=== PATIENT | female | born 1965 | race Caucasian/White ===

== ENCOUNTER → 2016-08-23 | Outpatient (CLI) | payer BC ==
--- NOTE | 2016-08-23 11:43 | Diagnostic Imaging Report ---
EXAMINATION: Bilateral screening mammogram With a Computer Aided Detection (CAD) system. INDICATION: Screening. PERSONAL HISTORY: No current complaints stated on the questionnaire. COMPARISON: 08/24/2015. FINDINGS: The breasts are composed of scattered fibroglandular densities. Punctate calcifications are seen. Allowing for technique and positional differences, no suspicious change is seen. IMPRESSION: No significant change. ACR BI-RADS Category 2: Benign findings. Result letter will be mailed to the patient. Note: At least 10% of breast cancer is not imaged by mammography. Dictated by: Dictated on workstation # [id number]
== END ==
LOC: RAD 07:26
PROVIDERS: ATTEND Obstetrics & Gynecology
DX: Z12.31 Encounter for screening mammogram for malignant neoplasm of breast (principal)
CPT/HCPCS: 77067

== ENCOUNTER 2016-12-05 06:55 | Day surgery (SDC) | payer BC, OTHER ==
[2016-12-05] VITALS (14 sets, daily range): BP systolic 98–145; BP diastolic 76–99
[~2016-12-05] VITALS: Ht 167.6 cm; Wt 140.6 kg
[2016-12-05] MEDS ORDERED: NS IV 1000 ML 1,000 ML ONE (06:57)
[2016-12-05] MEDS ORDERED: HEParin (CATH LAB) 2,000 ML IV ONE (06:57)
[2016-12-05 07:27] LABS: MEAN PLATELET VOLUME 10.2 FL (7.4-10.4); RED BLOOD COUNT 4.98 10^6/uL (4.35-5.85); RED CELL DISTRIBUTION WIDTH 16.6 % (10.0-14.5); WHITE BLOOD COUNT 10.4 10^3/uL (4.3-11.0)
[2016-12-05] MEDS ORDERED: NS IV 1000 ML 1,000 ML IV SCH (07:30)
[2016-12-05 07:38] LABS: INR 1.6 (0.8-1.4); PROTHROMBIN TIME PATIENT 19.3 SEC (12.2-14.7)
[2016-12-05 07:49] LABS: ALBUMIN 3.9 GM/DL (3.2-4.5); BILIRUBIN,TOTAL 0.5 MG/DL (0.1-1.0); CREATININE SERUM 1.29 MG/DL (0.60-1.30); POTASSIUM 3.9 MMOL/L (3.6-5.0); TOTAL PROTEIN 7.7 GM/DL (6.4-8.2)
[2016-12-05 08:08] LABS: THYROID STIMULATING HORMONE 4.39 UIU/ML (0.35-4.94)
[2016-12-05] MEDS ORDERED: OLME1TAB24 PO ×2 (08:23)
[2016-12-05] MEDS ORDERED: METO-395 PO ×2 (08:23)
[2016-12-05] MEDS ORDERED: fentaNYL INJECTION 100 MCG/2 ML AMP ONE (08:23)
[2016-12-05] MEDS ORDERED: FISH1CAP15 PO ×2 (08:23)
[2016-12-05] MEDS ORDERED: METF1000 PO ×2 (08:23)
[2016-12-05] MEDS ORDERED: RIVA20TA PO ×2 (08:23)
[2016-12-05] MEDS ORDERED: FLAX100031 PO ×2 (08:23)
[2016-12-05] MEDS ORDERED: NORG1TAB33 PO ×2 (08:23)
[2016-12-05] MEDS ORDERED: SITA100T12 PO ×2 (08:23)
[2016-12-05] MEDS ORDERED: diphenhydrAMINE 50 MG/ML INJ (BENADRYL) ONE (08:23)
[2016-12-05] MEDS ORDERED: MIDAZOLAM 5 MG/5 ML (VERSED) VIAL ONE (08:23)
[2016-12-05] MEDS ORDERED: PRAV40TA2 PO ×2 (08:23)
[2016-12-05] MEDS ORDERED: MULT-35 PO ×2 (08:23)
[2016-12-05] MEDS ORDERED: NITROGLYCERIN DRIP 25 MG/D5W 0 ML IV ONE (08:56)
[2016-12-05] MEDS ORDERED: HEParin 1000 UNIT/ML (10ML VIAL) FOR BOLUS ONE (08:56)
[2016-12-05] MEDS ORDERED: EPTIFIBATIDE BOLUS 20 ML IV ONE (08:56)
[2016-12-05] MEDS ORDERED: EPTIFIBATIDE BOLUS 10 ML IV ONE (09:08)
[2016-12-05] MEDS ORDERED: CLOPIDOGREL 300 MG (PLAVIX) TABLET PO ONE (09:16)
[2016-12-05] MEDS ORDERED: ASPIRIN 81 MG CHEW (CHILDREN'S ASA) ONE (09:24)
--- NOTE | 2016-12-05 09:53 | Cardiac Procedure Note-CS/ASA ---
Pre-Procedure Note Pre-Op Procedure Note H&P Reviewed The H&P was reviewed, patient examined and no changes noted. Date H&P Reviewed: Dec 05, 2016 Time H&P Reviewed: 08:45 Conscious Sedation Pre-Proced Time Reviewed: 08:45 ASA Class: 3 Airway Mallampati Classification: (eklutna appropriate class) I. II. III, IV Lungs Heart ASA score ASA 1: a normal healthy patient ASA 2: a patient with a mild systemic disease (mid diabetes, controlled hypertension, obesity ASA 3: a patient with a severe systemic disease that limits activity (angina , COPD, prior Myocardial infarction) ASA 4: a patient with an incapacitating disease that is a constant threat to life (CHF, renal failure) ASA 5: a moribund patient not expected to survive 24 hrs. (ruptured aneurysm) ASA 6: a declared brain patient whose organs are being harvested. For emergent operations, add the letter E after the classification Grade 3 Sedation Plan: Analgesia, Amnesia, Plan communicated to team members, Discussed options with patient/fam, Discussed risks with patient/fam Note The patient is an appropriate candidate to undergo the planned procedure, sedation, and anesthesia. The patient immediately re-assessed prior to indication. JOSE MEREDITH MD FACP FAC CCDS Dec 05, 2016 09:53
[2016-12-05] MEDS: NS IV 1000 ML 1,000 ML IV SCH ×2 (09:55→13:07)
[2016-12-05] MEDS ORDERED: DIGOXIN 0.25 MG/ML (LANOXIN) 2 ML AMP IV NR (10:00)
[2016-12-05] MEDS ORDERED: FUROSEMIDE 40 MG/4 ML INJ (LASIX) IVP NR (10:00)
[2016-12-05] MEDS ORDERED: PATIENT MAY USE OWN MEDS, ALL PO SCH (10:00)
[2016-12-05] MEDS ORDERED: KCL 20 MEQ TAB (K-DUR) PO NR (10:00)
--- NOTE | 2016-12-05 10:19 | CARDIAC CATHETERIZATION ---
DATE OF SERVICE: 12/05/2016 PRIMARY PHYSICIAN: Dr. Jeffers. The patient is a 51-year-old lady who has recently been diagnosed with atrial fibrillation and dilated cardiomyopathy. Cardiac catheterization was carried out after having obtained an informed consent. PROCEDURE: The patient was brought to the cardiac catheterization laboratory in a fasting state. Right groin was prepared and draped in the usual sterile fashion. Lidocaine 1% local anesthesia. Modified Seldinger technique was to advance a 5-Sudanese sheath into the right femoral artery. A 5-Sudanese JL4 catheter was used for left coronary angiography. A 5-Sudanese JR4 catheter, right coronary angiography. A 5-Sudanese pigtail catheter was used for left heart catheterization and left ventricular angiography. PERCUTANEOUS INTERVENTION TO THE LEFT ANTERIOR DESCENDING ARTERY: Following completion of the diagnostic procedure, we exchanged the sheath over a wire for a 6-Sudanese sheath. We used a 6-Sudanese JL4.5 guide catheter to engage the left coronary system. We advanced a BMW wire across an 80% stenosis of the mid left anterior descending artery and the tip of the wire was placed in the distal vessel. We deployed an Alpine Xience 3.0 mm x 18 mm stent in the mid left anterior descending artery. This was deployed at 22 atmospheres and has reduced the stenosis from 80% to 0% residual. The distal left anterior descending artery is occluded and not intervened on. There is brisk runoff past the standard area into the branch vessels. The patient tolerated the procedure well. At the end of the procedure, angiography of the right femoral artery was carried out through the sheath and a Mynx was used to achieve hemostasis. She tolerated the procedure well. She received 9000 units of intravenous heparin and a double bolus of Integrilin during the interventional procedure. At the end of the procedure, she received 600 mg of oral Plavix and 324 mg of oral aspirin. HEMODYNAMICS: Left ventricular end-diastolic pressure following coronary angiography was 24 mmHg. There was no significant pressure gradient on pullback across the aortic valve. Ascending aortic pressure was 129/90 with a mean of 108 mmHg. CORONARY ANGIOGRAPHY: Diffuse coronary calcification is present. Left main coronary artery does not exhibit significant obstructive disease. Left anterior descending artery had 80% mid vessel stenosis to which successful intervention was carried out, and following deployment of Alpine Xience 3.0 mm x 18 mm stent at 22 atmospheres, there is 0% residual stenosis of the mid left anterior descending artery. The distal left anterior descending artery is occluded. The left circumflex artery has diffuse mild to moderate disease. The right coronary artery is dominant. It has 50% proximal and mid vessel stenoses. The distal right coronary artery has 99-100 percent stenosis at its bifurcation into the posterior descending and posterolateral branches. These branches are of very small caliber and are collateralized from the left coronary system. LEFT VENTRICULAR ANGIOGRAPHY: Left ventricular angiography was carried out in the right anterior oblique projection. Global left ventricular systolic function is impaired. There is anterolateral, apical and diaphragmatic hypokinesis. Left ventricular ejection fraction is 35 to 40%. There does not appear to be significant mitral regurgitation. There is mild mitral regurgitation. CONCLUSIONS: 1. Coronary artery disease as detailed above. There was 80% mid vessel stenosis in the left anterior descending artery which was stented with an MVious Xoticsine Xience 3.0 mm x 18 mm stent deployed at 22 atmospheres. The distal left anterior descending artery is occluded 2. The left circumflex artery has diffuse mild to moderate disease. 3. The right coronary artery has moderate proximal and mid vessel disease and severe distal disease and is collateralized from the left coronary system. 4. Impairment of global left ventricular systolic function with an ejection fraction of 35 to 40%. 5. Anterolateral, apical and diaphragmatic hypokinesis of the left ventricle. 6. Mild mitral regurgitation. 7. Elevated left ventricular end diastolic pressure. DISCUSSION AND RECOMMENDATIONS: 1. We will overlap aspirin and Plavix for 2 to 3 days while continuing therapy with Xarelto. We will discontinue aspirin and continue Plavix for 6 to 12 months. Once Plavix therapy has been completed, we will switch it out to aspirin, while continuing Xarelto therapy indefinitely. 2. For treatment of cardiomyopathy, we are treating with beta blockers and JESUS inhibitors, as tolerated by blood pressure and renal function. Diuretic therapy is also being continued to control symptoms of congestive heart failure. 3. She is being hospitalized after today's procedure and we will continue to titrate her medications appropriately. Job ID: [id number] DocumentID: [id number] Dictated Date: 12/05/2016 09:44:13 Circuit Walker Date: 12/05/2016 10:18:51 Dictated By: JOSE MEREDITH MD, MA, FACP, FACC, MTDD
[2016-12-05] MEDS: sitaGLIPtin 50 MG (NON-FORMULARY) TAB PO SCH (11:46)
[2016-12-05] MEDS: meTOproloL SUCCINATE 50 MG (TOPROL XL) TAB PO SCH ×2 (11:47→21:10)
[2016-12-05] MEDS ORDERED: DIGOXIN 0.25 MG/ML (LANOXIN) 2 ML AMP ONE (15:32)
[2016-12-05] MEDS ORDERED: FUROSEMIDE 40 MG/4 ML INJ (LASIX) ONE (15:32)
[2016-12-05] MEDS ORDERED: OMEGA 3 (FISH OIL) 1000 MG CAP PO SCH (21:00)
[2016-12-05] MEDS ORDERED: RIVAROXABAN 20 MG TABLET (XARELTO) PO SCH (21:00)
[2016-12-05] MEDS ORDERED: SIMvastatin 20 MG (ZOCOR) TAB PO SCH (21:00)
[2016-12-06] VITALS: BP 114/73
[2016-12-06 04:00] VITALS: BP 112/72
[2016-12-06 05:06] LABS: MEAN PLATELET VOLUME 10.9 FL (7.4-10.4); RED BLOOD COUNT 4.44 10^6/uL (4.35-5.85); RED CELL DISTRIBUTION WIDTH 16.6 % (10.0-14.5); WHITE BLOOD COUNT 13.9 10^3/uL (4.3-11.0)
[2016-12-06 05:25] LABS: CREATININE SERUM 1.09 MG/DL (0.60-1.30); POTASSIUM 3.6 MMOL/L (3.6-5.0)
[2016-12-06] MEDS ORDERED: MULTIVIT W/MINERALS TAB (THERAGRAN M) PO SCH (07:00)
[2016-12-06] MEDS ORDERED: KCL 10 MEQ TAB (MICRO K) PO SCH (07:00)
[2016-12-06 08:40] VITALS: BP 133/88
[2016-12-06] MEDS ORDERED: HYDROCHLOROTHIAZIDE 25 MG (HCTZ) TAB PO SCH (09:00)
[2016-12-06] MEDS ORDERED: NON-FORMULARY MEDICATION 1 EA EA (Flaxseed Oil (Flax Seed Oil) 1,000 MG) PO SCH (09:00)
[2016-12-06] MEDS ORDERED: ASPIRIN E.C. 81 MG (ECOTRIN) TAB PO SCH (09:00)
[2016-12-06] MEDS ORDERED: DIGOXIN 0.25 MG (LANOXIN) TAB PO SCH (09:00)
[2016-12-06] MEDS ORDERED: FUROSEMIDE 40 MG (LASIX) TAB PO SCH (09:00)
[2016-12-06] MEDS ORDERED: OLMESARTAN 20 MG (BENICAR) TABLET PO SCH (09:00)
[2016-12-06] MEDS ORDERED: CLOPIDOGREL 75 MG (PLAVIX) TABLET PO SCH (09:00)
--- NOTE | 2016-12-06 09:05 | Progress Note-Cardiology ---
Cardiology SOAP Progress Note Subjective: Sitting up in bed. C/O some groin discomfort. No c/o CP, palpitations, syncope or near syncope. No c/o dyspnea. Objective: I&O/Vital Signs Vital Sign - Last 12Hours 12/06/16 12/06/16 12/06/16 12/06/16 04:00 07:00 07:55 08:40 Temp 97.6 98.0 Pulse 100 99 Resp 18 B/P (MAP) 112/72 Pulse Ox 97 97 O2 Delivery Room Air Room Air 12/06/16 12/06/16 12/06/16 08:40 11:15 12:00 Temp 97.7 Pulse 85 91 91 Resp 20 20 20 B/P (MAP) 133/88 107/75 107/75 Pulse Ox 97 97 97 O2 Delivery Room Air Room Air Room Air Weight (Pounds): 310 Weight (Ounces): 0.0 Weight (Calculated Kilograms): 140.661861 Side: right Groin site without hematoma: Yes Condition: DP/PT pulses palpable, extremity w/d/p Bruising: mild bruising Constitutional: AAO x 3 Respiratory: lungs clear to auscultation Cardiovascular: irregularly irregular, No JVD Gastrointestional: No tender, soft, round Extremities: no lower extremity edema bilateral Neurologic/Psychiatric: grossly intact Skin: No rash, No ulcerations Results/Procedures: Labs Laboratory Tests 12/06/16 04:12: White Blood Count 13.9H, Red Blood Count 4.44, Hemoglobin 12.1, Hematocrit 38, Mean Corpuscular Volume 85, Mean Corpuscular Hemoglobin 27, Mean Corpuscular Hemoglobin Concent 32, Red Cell Distribution Width 16.6H, Platelet Count 161, Mean Platelet Volume 10.9H, Sodium Level 138, Potassium Level 3.6, Chloride Level 107, Carbon Dioxide Level 18L, Anion Gap 13, Blood Urea Nitrogen 16, Creatinine 1.09, Estimat Glomerular Filtration Rate 53, BUN/Creatinine Ratio 15 , Glucose Level 123H, Calcium Level 9.0 Procedures S/P cardiac cath with successful intervention on 12-05-16. Please refer to Dr. Gaitan's procedure note from 12-05-16. A/P: Assessment: Cardiac cath of 12-05-16: Coronary artery disease. There was 80% mid vessel stenosis in the left anterior descending artery which was stented with an Alpine Xience 3.0 mm x 18 mm stent deployed at 22 atmospheres. The distal left anterior descending artery is occluded. The left circumflex artery has diffuse mild to moderate disease. The right coronary artery has moderate proximal and mid vessel disease and severe distal disease and is collateralized from the left coronary system. Impairment of global left ventricular systolic function with an ejection fraction of 35 to 40%. Anterolateral, apical and diaphragmatic hypokinesis of the left ventricle. Mild mitral regurgitation. Elevated left ventricular end diastolic pressure. ICM A Fib of undetermined age, first diagnosed on an ECG of 11/13/16 OAC with Xarelto Suspected sleep apnea syndrome - sleep studies advised Hypertension Fam h/o early CAD (mother in her early 60s) DM II Boredrline hyperlipidemia Echo at the [facility] on 11/28/18: LVEF 35%, cardiomegaly, mod-sev MR, midl AI , difficult study Plan: We will overlap aspirin, Xarelto and Plavix today. We will discontinue aspirin and continue Plavix for 6 to 12 months. Once Plavix therapy has been completed , we will switch it out to aspirin, while continuing Xarelto therapy indefinitely. For treatment of cardiomyopathy, we are treating with beta blockers and JESUS inhibitors, as tolerated by blood pressure and renal function. Diuretic therapy is also being continued to control symptoms of congestive heart failure. We advise out pt sleep studies, we have spoke with Dr. Mcintosh and he is agreeable to seeing her tomorrow. OK to discharge home today We will see her as an out pt next week We advise compliance with medications Physician Assessment Physician Assessment Lungs: good air entry, diminished at the bases Cor: ifreg Ext: no c/c/e A&R * As documented in our note above that I updated (italics) and as noted below * I spoke with her and explained cath findings, interventions undertaken, treatment plan and treatment rationale * We discussed potential side effects of med and importance of med compliance * I spoke with her and answered questions ESTEFANIA WATTS Dec 06, 2016 09:05 JOSE GAITAN MD [facility] CCDS Dec 06, 2016 13:45
[2016-12-06] MEDS ORDERED: DIGO250T15 PO ×2 (09:31)
[2016-12-06] MEDS ORDERED: POTA10TA6 PO ×2 (09:31)
[2016-12-06] MEDS ORDERED: FURO40TA4 PO ×2 (09:31)
[2016-12-06] MEDS ORDERED: CLOP75TA28 PO ×2 (09:31)
--- NOTE | 2016-12-06 09:33 | Discharge Inst-Cardiology ---
Discharge Inst-Cardiac Discharge Medications New Medications: Clopidogrel Bisulfate (Clopidogrel) 75 Mg Tablet 75 MG PO DAILY, #30 TAB 5 Refills Digoxin (Digox) 250 Mcg Tablet 0.25 MG PO DAILY, #30 TAB 5 Refills Furosemide (Furosemide) 40 Mg Tablet 40 MG PO DAILY, #30 TAB 5 Refills Potassium Chloride (Klor-Con 10) 10 Meq Tablet.er 10 MEQ PO DAILY@0700, #30 TAB 5 Refills Continued Medications: Fish Oil/Dha/Epa (Fish Oil 1,200 mg Fish Oil) 1 Each Capsule 1200 MG PO HS, CAP Flaxseed Oil (Flax Seed Oil) 1,000 Mg Capsule 1000 MG PO DAILY, CAP Metformin HCl (Metformin HCl) 1,000 Mg Tablet 500 MG PO TIDWM, TAB TAKES 1/2 (1000MG) TABLET Metoprolol Succinate (Metoprolol Succinate) 100 Mg Tab.er.24h 50 MG PO BID, TAB TAKES 1/2 (100MG) TABLET Multivitamin (Daily Multiple Vitamin) 1 Each Tablet 1 TAB PO DAILY, TAB Norgestrel-Ethinyl Estradiol (Uyc-Hgtyvqpj-47 Tablet) 1 Each Tablet 1 TAB PO DAILY, TAB Olmesartan/Hydrochlorothiazide (Benicar Hct 40-25 mg Tablet) 1 Each Tablet 1 TAB PO DAILY, TAB Pravastatin Sodium (Pravastatin Sodium) 40 Mg Tablet 40 MG PO HS, TAB Rivaroxaban (Xarelto) 20 Mg Tablet 20 MG PO HS, TAB Sitagliptin Phosphate (Januvia) 100 Mg Tablet 100 MG PO DAILY, TAB New, Converted or Re-Newed RX: Transmitted to Pharmacy Patient Instructions Patient Instructions: HOLD METFORMIN TODAY AND TOMORROW. RESTART ON SUNDAY MORNING. FOLLOW UP APPT IN 1 WEEK LAB: BMP AND DIGOXIN LEVEL IN A WEEK. HAVE DONE BEFORE FOLLOW UP APPT WITH DR. MEREDITH Orders-Post D/C & Referrals Pneu Vac Indicated: Yes ESTEFANIA WATTS Dec 06, 2016 09:33
[2016-12-06] MEDS: meTOproloL SUCCINATE 50 MG (TOPROL XL) TAB PO SCH (10:05)
[2016-12-06] MEDS: sitaGLIPtin 50 MG (NON-FORMULARY) TAB PO SCH (10:05)
[2016-12-06 11:15] VITALS: BP 107/75
[2016-12-06 12:00] VITALS: BP 107/75
[2017-02-14] MEDS ORDERED: OXYC-202 PO (12:47)
== END 2016-12-06 12:00 | disposition home or self-care (01) ==
LOC: CATH 06:55 → ICU 09:55 → CATH 12-06 12:00
PROVIDERS: ATTEND Internal Medicine Cardiovascular Disease
DX: I42.0 Dilated cardiomyopathy (principal); I25.10 Atherosclerotic heart disease of native coronary artery without angina pectoris; I25.84 Coronary atherosclerosis due to calcified coronary lesion; I48.91 Unspecified atrial fibrillation; E11.9 Type 2 diabetes mellitus without complications; Z79.01 Long term (current) use of anticoagulants; Z79.899 Other long term (current) drug therapy; Z79.84 Long term (current) use of oral hypoglycemic drugs; Z82.49 Family history of ischemic heart disease and other diseases of the circulatory system
CPT/HCPCS: 36415; 80048; 80053; 80061; 82962; 84443; 85027; 85610; 85730; 87081; 93005; 93458

== ENCOUNTER 2016-12-08 11:45 | Outpatient (CLI) | payer BC, OTHER ==
[~2016-12-08 11:45] MED LIST: CLOP75TA28 PO; DIGO250T15 PO; FISH1CAP15 PO; FLAX100031 PO; FURO40TA4 PO; METF1000 PO; METO-395 PO; MULT-35 PO; NORG1TAB33 PO; OLME1TAB24 PO; POTA10TA6 PO; PRAV40TA2 PO; RIVA20TA PO; SITA100T12 PO
[2017-02-14] MEDS ORDERED: OXYC-202 PO (12:47)
== END 2016-12-08 11:55 | disposition home or self-care (01) ==
LOC: SLEEP 11:45
PROVIDERS: ATTEND Nurse Practitioner Family
DX: G47.10 Hypersomnia, unspecified (principal); I48.0 Paroxysmal atrial fibrillation; G25.81 Restless legs syndrome

== ENCOUNTER → 2016-12-11 | Outpatient (CLI) | payer BC ==
[~2016-12-11] MED LIST changes: +METO-274 PO; -METO-395 PO
[2016-12-11 09:37] LABS: CREATININE SERUM 1.33 MG/DL (0.60-1.30); POTASSIUM 4.1 MMOL/L (3.6-5.0)
[2016-12-11 09:44] LABS: DIGOXIN 1.51 NG/ML (0.80-2.00)
== END ==
LOC: LAB 08:54
PROVIDERS: ATTEND Nurse Practitioner Family
DX: I48.91 Unspecified atrial fibrillation (principal); I50.9 Heart failure, unspecified
CPT/HCPCS: 36415; 80048; 80162

== ENCOUNTER → 2016-12-18 | Outpatient (CLI) | payer BC ==
[2016-12-18 10:24] LABS: CREATININE SERUM 1.11 MG/DL (0.60-1.30); MAGNESIUM 1.4 MG/DL (1.8-2.4); POTASSIUM 3.8 MMOL/L (3.6-5.0)
== END ==
LOC: LAB 09:45
PROVIDERS: ATTEND Nurse Practitioner Family
DX: I10 Essential (primary) hypertension (principal); I42.0 Dilated cardiomyopathy; I48.0 Paroxysmal atrial fibrillation; I25.10 Atherosclerotic heart disease of native coronary artery without angina pectoris; E83.52 Hypercalcemia
CPT/HCPCS: 36415; 80048; 83735

== ENCOUNTER → 2017-01-03 | Outpatient (CLI) | payer BC ==
[2017-01-03 10:16] LABS: BASOPHILS # (AUTO) 0.1 10^3/uL (0.0-0.1); BASOPHILS % (AUTO) 1 % (0-10); EOSINOPHILS # (AUTO) 0.2 10^3/uL (0.0-0.3); EOSINOPHILS % (AUTO) 3 % (0-10); LYMPHOCYTES # (AUTO) 1.9 X 10^3 (1.0-4.0); LYMPHOCYTES % (AUTO) 25 % (12-44); MEAN CORPUSCULAR HEMOGLOBIN 29 PG (25-34); MEAN CORPUSCULAR HGB CONC 31 G/DL (32-36); MEAN CORPUSCULAR VOLUME 93 FL (80-99); MEAN PLATELET VOLUME 10.5 FL (7.4-10.4); MONOCYTES % (AUTO) 13 % (0-12); NEUTROPHILS # (AUTO) 4.3 X 10^3 (1.8-7.8); NEUTROPHILS % (AUTO) 58 % (42-75); PLATELET COUNT 289 10^3/uL (130-400); RED BLOOD COUNT 3.89 10^6/uL (4.35-5.85); RED CELL DISTRIBUTION WIDTH 18.7 % (10.0-14.5); WHITE BLOOD COUNT 7.5 10^3/uL (4.3-11.0)
[2017-01-03 10:34] LABS: CALCIUM 9.8 MG/DL (8.5-10.1); CREATININE SERUM 1.06 MG/DL (0.60-1.30); MAGNESIUM 1.9 MG/DL (1.8-2.4)
== END ==
LOC: LAB 09:36
PROVIDERS: ATTEND Nurse Practitioner Family
DX: I10 Essential (primary) hypertension; I25.10 Atherosclerotic heart disease of native coronary artery without angina pectoris; E83.42 Hypomagnesemia; Z79.01 Long term (current) use of anticoagulants; I48.0 Paroxysmal atrial fibrillation; I42.0 Dilated cardiomyopathy
CPT/HCPCS: 36415; 80048; 83735; 85025

== ENCOUNTER 2017-02-12 10:50 | Outpatient (CLI) | payer BC ==
[~2017-02-12] VITALS: Ht 167.6 cm; Wt 139.3 kg
[2017-02-12 11:08] VITALS: BP 148/86
[2017-02-12] MEDS ORDERED: MAGN400T6 PO (11:35)
[2017-02-12] MEDS ORDERED: OLME40TA12 PO (11:35)
[2017-02-12 11:41] LABS: BASOPHILS # (AUTO) 0.1 10^3/uL (0.0-0.1); BASOPHILS % (AUTO) 1 % (0-10); EOSINOPHILS # (AUTO) 0.2 10^3/uL (0.0-0.3); EOSINOPHILS % (AUTO) 2 % (0-10); LYMPHOCYTES % (AUTO) 18 % (12-44); MEAN CORPUSCULAR HEMOGLOBIN 27 PG (25-34); MEAN CORPUSCULAR HGB CONC 31 G/DL (32-36); MEAN CORPUSCULAR VOLUME 87 FL (80-99); MEAN PLATELET VOLUME 10.3 FL (7.4-10.4); MONOCYTES # (AUTO) 1.1 X 10^3 (0.0-1.0); MONOCYTES % (AUTO) 11 % (0-12); NEUTROPHILS # (AUTO) 7.3 X 10^3 (1.8-7.8); NEUTROPHILS % (AUTO) 69 % (42-75); PLATELET COUNT 560 10^3/uL (130-400); RED BLOOD COUNT 3.81 10^6/uL (4.35-5.85); RED CELL DISTRIBUTION WIDTH 15.8 % (10.0-14.5); WHITE BLOOD COUNT 10.7 10^3/uL (4.3-11.0)
[2017-02-12 11:55] LABS: CALCIUM 9.9 MG/DL (8.5-10.1); CREATININE SERUM 1.04 MG/DL (0.60-1.30); POTASSIUM 4.2 MMOL/L (3.6-5.0)
== END 2017-02-12 15:00 ==
LOC: PREOP 10:50
PROVIDERS: ATTEND Obstetrics & Gynecology
DX: Z01.818 Encounter for other preprocedural examination (principal); N93.8 Other specified abnormal uterine and vaginal bleeding
CPT/HCPCS: 36415; 80048; 85025; 87081

== ENCOUNTER 2017-02-14 10:50 | Day surgery (SDC) | payer BC ==
[~2017-02-14] VITALS: Ht 167.6 cm; Wt 139.3 kg
[~2017-02-14 10:50] MED LIST changes: +MAGN400T6 PO; -METO-274 PO; +METO-395 PO; +OLME40TA12 PO
[2017-02-14 11:00] VITALS: BP 168/92
[2017-02-14] MEDS ORDERED: ceFAZolin 1 GM/NS 50 ML IVPB IV ONE ×2 (11:30)
[2017-02-14] MEDS ORDERED: LIDOCAINE PF 2% 5 ML (XYLOCAINE) VIAL ONE (12:29)
[2017-02-14] MEDS ORDERED: MIDAZOLAM 2 MG/2 ML (VERSED) VIAL ONE (12:29)
[2017-02-14] MEDS ORDERED: proPOfol 200 MG/20 ML (DIPRIVAN) VIAL IV ONE (12:29)
[2017-02-14] MEDS ORDERED: SEVOFLURANE (ULTANE) 15 ML INHAL SOLN ONE ×2 (12:29→13:17)
[2017-02-14] MEDS ORDERED: fentaNYL INJECTION 100 MCG/2 ML AMP ONE ×2 (12:29→13:07)
[2017-02-14] MEDS ORDERED: ONDANSETRON 4 MG/2 ML (SDV) Z0FRAN ONE (12:29)
[2017-02-14] MEDS ORDERED: LACTATED RINGERS 1,000 ML IV PRN (12:37)
--- NOTE | 2017-02-14 12:43 | Progress Note-Pre Operative ---
Pre-Operative Progress Note H&P Reviewed The H&P was reviewed, patient examined and no changes noted. Date Seen by Provider: Feb 14, 2017 Time Seen by Provider: 12:43 Date H&P Reviewed: Feb 14, 2017 Time H&P Reviewed: 12:43 Pre-Operative Diagnosis: dysfunctional uterine bleeding/menorrhagia ORACIO BLAIR MD Feb 14, 2017 12:43 pm
--- NOTE | 2017-02-14 12:44 | Progress Note-Post Operative ---
Post-Operative Progess Note Surgeon (s)/Data Manager (s) Surgeon ORACIO BLAIR MD Data Manager: none Pre-Operative Diagnosis dysfunctional uterine bleeding/menorrhagia Post-Operative Diagnosis same with pathology pending Procedure & Operative Findings Date of Procedure 02/14/17 Procedure Performed/Findings hysteroscopy with directed biopsy and D&C Anesthesia Type GETA Estimated Blood Loss Estimated blood loss (mL): min Specimens/Packing Specimens Removed directed the endometrial biopsy and endometrial curettings Packing: none ORACIO BLAIR MD Feb 14, 2017 12:44
[2017-02-14] MEDS ORDERED: MEPERIDINE (DEMEROL) INJ 100 MG/ML IM ONE (12:45)
[2017-02-14] MEDS ORDERED: ONDANSETRON 4 MG/2 ML (SDV) Z0FRAN IVP PRN ×2 (12:45→14:00)
[2017-02-14] MEDS ORDERED: oxyCODONE/APAP 10/325MG (PERCOCET 10) TABLET PO PRN (12:45)
[2017-02-14] MEDS ORDERED: PROMETHAZINE INJ 25 MG/ML (PHENERGAN) AMP IM ONE (12:45)
[2017-02-14] MEDS ORDERED: D5 LR IV SOLUTION 1,000 ML IV SCH (12:45)
[2017-02-14] MEDS ORDERED: ESTROGENS CONJ IV 25 MG/5 ML (PREMARIN) VIAL IVP ONE (12:45)
[2017-02-14] MEDS ORDERED: OXYC-202 PO (12:47)
--- NOTE | 2017-02-14 12:48 | Discharge Instructions ---
Discharge Instructions Discharge Medications New, Converted or Re-Newed RX: RX on Chart Patient Instructions Patient Instructions: aas directed Return to The Hospital For: as directed Activity & Diet Discharge Diet: No Restrictions Activity as Tolerated: No Orders-Post D/C & Referrals Follow Up Appt: Call to make follow up appt. for patient in 2 weeks. Activity: Rest for 24 hours, than as tolerated. Diet: As tolerated-Clear Liquids only if nauseated. May shower or tub bathe as desired. No driving for 24 hours, no alcoholic beverages for 24 hours, and nothing per vagina (no tampons, douching, or intercourse) for 2 weeks. Patient to return to the clinic as soon as possible for: Temperature greater than 101F, Severe Pain, Foul discharge from incision or vagina, Excessive Bleeding (more than a period). ORACIO BLAIR MD Feb 14, 2017 12:48 pm
[2017-02-14] MEDS ORDERED: ESMOLOL 100 MG/10 ML (BREVIBLOC) VIAL ONE (13:19)
[2017-02-14] MEDS ORDERED: WATER (STERILE) FOR INJECTION 10 ML ONE (13:42)
[2017-02-14] MEDS ORDERED: morphine INJ 10 MG/ML 1ML (SYR OR VIAL) IVP PRN (14:00)
[2017-02-14 14:30] VITALS: BP 143/75
[2017-02-14 15:00] VITALS: BP 133/80
[2017-02-14 15:01] VITALS: BP 133/80
[2017-02-14 15:20] VITALS: BP 133/80
--- NOTE | 2017-02-14 16:01 | OPERATIVE REPORT ---
DATE OF SERVICE: 02/14/2017 PREOPERATIVE DIAGNOSES: Dysfunctional uterine bleeding, menorrhagia and ultrasound findings of intrauterine mass. POSTOPERATIVE DIAGNOSES: Dysfunctional uterine bleeding, menorrhagia and ultrasound findings of intrauterine mass with appearance of multiple endometrial polyps and pathology pending. OPERATIVE PROCEDURE: Hysteroscopy with directed biopsy and D and C. OPERATIVE DESCRIPTION: With the patient in the supine position under satisfactory general anesthesia, she was repositioned in dorsal lithotomy position in the Dontae stirrups and prepped and draped in the usual fashion for vaginal surgery. Weighted speculum was placed in the posterior fornix of vagina, cervix exposed and grasped anteriorly with single-tooth tenaculum. The uterus was sounded to 9.5 cm with uterine sound. The cervix was then serially dilated with Shukri dilators to a #20 Shukri. The hysteroscope was introduced and using LR as a distending medium, the endometrial cavity was examined. There were multiple polypoid appearing eminences from the lower uterine segment on both sides. Fundraising Specialist biopsies were taken. Both tubal ostia were seen. The balance of the endometrium was sort of bland in appearance. The endometrial cavity was now sharply curettaged in all 4 quadrants with removal of a fairly notable amount of granular polypoid-appearing tissue. That tissue was sent as endometrial curettings. The other two biopsy specimens were sent as directed biopsies appropriately labeled. The hysteroscope was reintroduced and the endometrial cavity was examined. There was no significant bleeding. The procedure was terminated at this point. The tenaculum was removed from the cervix. There was some bleeding from the puncture sites that was controlled easily with an application of silver nitrate. Sponge and needle counts were correct at the end of procedure. Estimated blood loss for the procedure was minimal. The patient tolerated the procedure well and was uneventfully awakened from general anesthesia and transferred to the recovery room in stable condition with plans for discharge home PAR. Job ID: [id number] DocumentID: [id number] Dictated Date: 02/14/2017 13:32:10 Head Of Insight Date: 02/14/2017 16:00:38 Dictated By: ORACIO BLAIR MD
== END 2017-02-14 15:25 | disposition home or self-care (01) ==
LOC: SDC 10:50
PROVIDERS: ATTEND Obstetrics & Gynecology
DX: N84.0 Polyp of corpus uteri (principal); I10 Essential (primary) hypertension; I25.10 Atherosclerotic heart disease of native coronary artery without angina pectoris; E78.5 Hyperlipidemia, unspecified; I48.91 Unspecified atrial fibrillation; G47.33 Obstructive sleep apnea (adult) (pediatric); E11.9 Type 2 diabetes mellitus without complications; E66.01 Morbid (severe) obesity due to excess calories; Z95.5 Presence of coronary angioplasty implant and graft; Z68.42 Body mass index [BMI] 45.0-49.9, adult; Z79.899 Other long term (current) drug therapy; Z79.84 Long term (current) use of oral hypoglycemic drugs
CPT/HCPCS: 82962; 84703

== ENCOUNTER → 2017-03-07 | Outpatient (CLI) | payer BC ==
[~2017-03-07] MED LIST changes: +OXYC-202 PO
== END ==
LOC: CARD 09:31
PROVIDERS: ATTEND Nurse Practitioner Family
DX: I42.0 Dilated cardiomyopathy (principal); I10 Essential (primary) hypertension; I48.0 Paroxysmal atrial fibrillation; G47.33 Obstructive sleep apnea (adult) (pediatric)
CPT/HCPCS: 93306

== ENCOUNTER → 2017-04-05 | Outpatient (CLI) | payer BC ==
[2017-04-05 09:13] LABS: ALBUMIN 3.7 GM/DL (3.2-4.5); BILIRUBIN,TOTAL 0.4 MG/DL (0.1-1.0); CALCIUM 9.9 MG/DL (8.5-10.1); CREATININE SERUM 1.06 MG/DL (0.60-1.30); MAGNESIUM 1.5 MG/DL (1.8-2.4); POTASSIUM 4.1 MMOL/L (3.6-5.0); TOTAL PROTEIN 7.6 GM/DL (6.4-8.2)
== END ==
LOC: LAB 08:28
PROVIDERS: ATTEND Nurse Practitioner Family
DX: I25.10 Atherosclerotic heart disease of native coronary artery without angina pectoris (principal); I10 Essential (primary) hypertension; I42.0 Dilated cardiomyopathy; I48.1 Persistent atrial fibrillation; G47.33 Obstructive sleep apnea (adult) (pediatric)
CPT/HCPCS: 36415; 80053; 80061; 83735

== ENCOUNTER → 2017-04-25 | Outpatient (CLI) | payer BC | LOC: LAB 09:57 | PROVIDERS: ATTEND Internal Medicine Cardiovascular Disease | DX: E83.42 Hypomagnesemia (principal) | CPT/HCPCS: 36415; 83735 ==

== ENCOUNTER → 2017-07-04 | Outpatient (CLI) | payer BC ==
[2017-07-04 11:14] LABS: BASOPHILS % (AUTO) 0 % (0-10); EOSINOPHILS # (AUTO) 0.3 10^3/uL (0.0-0.3); EOSINOPHILS % (AUTO) 3 % (0-10); HEMATOCRIT 37 % (35-52); LYMPHOCYTES # (AUTO) 1.8 X 10^3 (1.0-4.0); LYMPHOCYTES % (AUTO) 17 % (12-44); MEAN CORPUSCULAR HEMOGLOBIN 24 PG (25-34); MEAN CORPUSCULAR HGB CONC 30 G/DL (32-36); MEAN CORPUSCULAR VOLUME 79 FL (80-99); MEAN PLATELET VOLUME 9.5 FL (7.4-10.4); MONOCYTES # (AUTO) 0.9 X 10^3 (0.0-1.0); MONOCYTES % (AUTO) 9 % (0-12); NEUTROPHILS # (AUTO) 7.7 X 10^3 (1.8-7.8); NEUTROPHILS % (AUTO) 71 % (42-75); PLATELET COUNT 457 10^3/uL (130-400); RED BLOOD COUNT 4.65 10^6/uL (4.35-5.85); RED CELL DISTRIBUTION WIDTH 18.7 % (10.0-14.5); WHITE BLOOD COUNT 10.8 10^3/uL (4.3-11.0)
[2017-07-04 11:40] LABS: CREATININE SERUM 1.07 MG/DL (0.60-1.30); MAGNESIUM 1.8 MG/DL (1.8-2.4); POTASSIUM 4.4 MMOL/L (3.6-5.0)
[2017-07-04 12:03] LABS: DIGOXIN 1.04 NG/ML (0.80-2.00)
== END ==
LOC: LAB 10:47
PROVIDERS: ATTEND Nurse Practitioner Family
DX: R00.2 Palpitations (principal); I48.0 Paroxysmal atrial fibrillation; I10 Essential (primary) hypertension; G47.33 Obstructive sleep apnea (adult) (pediatric); I25.10 Atherosclerotic heart disease of native coronary artery without angina pectoris
CPT/HCPCS: 36415; 80048; 80162; 83735; 84443; 85025

== ENCOUNTER → 2017-07-09 | Outpatient (CLI) | payer BC | LOC: CARD 10:07 | PROVIDERS: ATTEND Nurse Practitioner Family | DX: R00.2 Palpitations (principal); I48.0 Paroxysmal atrial fibrillation; I10 Essential (primary) hypertension; I25.10 Atherosclerotic heart disease of native coronary artery without angina pectoris; G47.33 Obstructive sleep apnea (adult) (pediatric) | CPT/HCPCS: 93225; 93226 ==

== ENCOUNTER → 2017-12-12 | Outpatient (CLI) | payer BC ==
[~2017-12-12] MED LIST changes: +METF-399 PO; -METF1000 PO; -OXYC-202 PO; +OXYC1TAB12 PO
[2017-12-12 11:17] LABS: ABG BASE EXCESS -0.1 MMOL/L (-2.5-2.5); ABG OXYGEN SATURATION 99 % (94-100); ABG PCO2 33 MMHG (35-45); ABG PH 7.46 (7.37-7.43); ABG PO2 100 MMHG (79-93); ABG TCO2 24.4 MMOL/L (21.0-31.0); ALLENS TEST YES-POS; INSPIRED O2 RA
[2017-12-12 11:18] LABS: PATIENT TEMP 97.7; VENTILATOR NO
== END ==
LOC: RT 10:36
PROVIDERS: ATTEND Nurse Practitioner Family
DX: E66.2 Morbid (severe) obesity with alveolar hypoventilation (principal); Z68.42 Body mass index [BMI] 45.0-49.9, adult
CPT/HCPCS: 36600; 82805

== ENCOUNTER 2017-12-25 20:40 | Outpatient (CLI) | payer BC | END 2017-12-26 04:55 | disposition home or self-care (01) | LOC: SLEEP 20:40 | PROVIDERS: ATTEND Nurse Practitioner Family | DX: G47.33 Obstructive sleep apnea (adult) (pediatric) (principal); I42.0 Dilated cardiomyopathy; Z78.9 Other specified health status | CPT/HCPCS: 95811 ==

== ENCOUNTER → 2018-03-13 | Outpatient (CLI) | payer BC ==
--- NOTE | 2018-03-13 13:07 | Diagnostic Imaging Report ---
EXAMINATION: Digital Mammogram bilateral screening with 3D tomosynthesis and computer-aided detection (CAD) system. INDICATION: Screening. COMPARISON: This study was compared to the prior exams of 08/23/2016, 08/25/2015, and 08/10/2014. At this time, there are no current complaints. FINDINGS: There are scattered fibroglandular densities in both breasts, which could obscure a lesion. When compared to the prior study, there has been no significant change. There is no primary or secondary sign of malignancy noted. The 3D tomographic views also fail to show any sign of malignancy. IMPRESSION: There is no evidence of malignancy. ACR BI-RADS Category 1: Negative. Result letter will be mailed to the patient. Note: At least 10% of breast cancer is not imaged by mammography. Dictated by: Dictated on workstation # [id number]
== END ==
LOC: RAD 09:39
PROVIDERS: ATTEND Obstetrics & Gynecology
DX: Z12.31 Encounter for screening mammogram for malignant neoplasm of breast (principal)
CPT/HCPCS: 77067

== ENCOUNTER → 2018-09-26 | Outpatient (CLI) | payer BC ==
[~2018-09-26] MED LIST changes: -RIVA20TA PO; +RIVA20TA2 PO
[2018-09-26 07:34] LABS: BASOPHILS # (AUTO) 0.1 10^3/uL (0.0-0.1); BASOPHILS % (AUTO) 1 % (0-10); EOSINOPHILS # (AUTO) 0.3 10^3/uL (0.0-0.3); EOSINOPHILS % (AUTO) 4 % (0-10); HEMATOCRIT 44 % (35-52); HEMOGLOBIN 14.4 G/DL (11.5-16.0); LYMPHOCYTES # (AUTO) 2.2 X 10^3 (1.0-4.0); LYMPHOCYTES % (AUTO) 28 % (12-44); MEAN CORPUSCULAR HEMOGLOBIN 31 PG (25-34); MEAN CORPUSCULAR HGB CONC 32 G/DL (32-36); MEAN CORPUSCULAR VOLUME 96 FL (80-99); MEAN PLATELET VOLUME 10.4 FL (7.4-10.4); MONOCYTES % (AUTO) 12 % (0-12); NEUTROPHILS # (AUTO) 4.3 X 10^3 (1.8-7.8); NEUTROPHILS % (AUTO) 55 % (42-75); PLATELET COUNT 273 10^3/uL (130-400); RED CELL DISTRIBUTION WIDTH 13.6 % (10.0-14.5); WHITE BLOOD COUNT 7.9 10^3/uL (4.3-11.0)
[2018-09-26 07:55] LABS: ALBUMIN 3.8 GM/DL (3.2-4.5); BILIRUBIN,TOTAL 0.4 MG/DL (0.1-1.0); CALCIUM 9.9 MG/DL (8.5-10.1); CREATININE SERUM 1.08 MG/DL (0.60-1.30); MAGNESIUM 1.6 MG/DL (1.8-2.4); TOTAL PROTEIN 7.2 GM/DL (6.4-8.2)
== END ==
LOC: LAB 07:16
PROVIDERS: ATTEND Internal Medicine Cardiovascular Disease
DX: I42.0 Dilated cardiomyopathy (principal); I25.10 Atherosclerotic heart disease of native coronary artery without angina pectoris; I10 Essential (primary) hypertension; E66.2 Morbid (severe) obesity with alveolar hypoventilation; G47.33 Obstructive sleep apnea (adult) (pediatric); I48.0 Paroxysmal atrial fibrillation
CPT/HCPCS: 36415; 80053; 80061; 80162; 83735; 84443; 85025

== ENCOUNTER → 2018-10-23 | Outpatient (CLI) | payer BC ==
[2018-10-23 10:58] LABS: MAGNESIUM 2.1 MG/DL (1.8-2.4)
== END ==
LOC: LAB 10:28
PROVIDERS: ATTEND Nurse Practitioner Family
DX: E83.42 Hypomagnesemia (principal); I10 Essential (primary) hypertension
CPT/HCPCS: 36415; 80162; 83735

== ENCOUNTER → 2019-01-13 | Outpatient (CLI) | payer BC ==
[2019-01-13 10:42] LABS: CREATININE SERUM 1.08 MG/DL (0.60-1.30); POTASSIUM 4.1 MMOL/L (3.6-5.0)
== END ==
LOC: LAB 09:57
PROVIDERS: ATTEND Nurse Practitioner Family
DX: I25.10 Atherosclerotic heart disease of native coronary artery without angina pectoris (principal); I10 Essential (primary) hypertension; I48.0 Paroxysmal atrial fibrillation; G47.33 Obstructive sleep apnea (adult) (pediatric); Z79.01 Long term (current) use of anticoagulants
CPT/HCPCS: 36415; 80048; 80162

== ENCOUNTER → 2019-05-13 | Outpatient (CLI) | payer BC ==
[~2019-05-13] VITALS: Ht 165 cm; Wt 138.0 kg
[~2019-05-13] MED LIST changes: +CATHETER FLUSH 10 ML SYR IV PRN; -MAGN400T6 PO; +MAGN400T8 PO; -METO-395 PO; +MTP100TCR PO; +REGADENOSON 0.4 MG/5 ML SYR (LEXISCAN) IV ONE
[2019-05-13 09:09] VITALS: BP 156/81
--- NOTE | 2019-05-16 20:03 | STRESS TEST ---
DATE OF SERVICE: 05/13/2019 RESTING AND POST REGADENOSON TECHNETIUM-99M TETROFOSMIN SPECT CT IMAGING ORDERING PHYSICIAN: Vinita Doyle. PRIMARY PHYSICIAN: Dr. Smith. CLINICAL DIAGNOSES: Coronary artery disease, hypertension, hyperlipidemia. Baseline images were carried out after injection of 9.95 mCi of technetium-99m Tetrofosmin. This was followed by 0.4 mg regadenoson and 30.6 mCi of technetium-99m Tetrofosmin for stress imaging. The electrocardiogram showed atrial fibrillation with a controlled ventricular response throughout the study. The electrocardiogram did not change significantly with regadenoson infusion. The patient noted shortness of breath after regadenoson infusion, which resolved in a few minutes. Review of images at rest and following stress indicates a patchy tracer uptake both at rest and following regadenoson infusion. There does not appear to be distinct evidence of ischemia or infarction. Gated images show well preserved global left ventricular systolic function with a calculated ejection fraction of 52%. Left ventricular end diastolic volume is 121 mL. CONCLUSIONS: 1. Cardiomegaly. 2. Well preserved global left ventricular systolic function with ejection fraction of 52%. 3. No distinct evidence of myocardial ischemia or infarction. Job ID: [id number] DocumentID: [id number] Dictated Date: 05/16/2019 17:47:00 Consumer Studies Professor Date: 05/16/2019 20:02:38 Dictated By: JOSE MEREDITH MD, MA, FACP, FACC,
== END ==
LOC: CARD 06:56
PROVIDERS: ATTEND Nurse Practitioner Family
DX: I11.9 Hypertensive heart disease without heart failure (principal); I25.10 Atherosclerotic heart disease of native coronary artery without angina pectoris; G47.33 Obstructive sleep apnea (adult) (pediatric); E78.5 Hyperlipidemia, unspecified
CPT/HCPCS: 78452; 93017

== ENCOUNTER 2019-06-18 18:13 | Inpatient (IN) | payer BC ==
[~2019-06-18 18:13] MED LIST changes: -AMLO5TAB9 PO; -CLOP75TA69 PO; -DIGO250T3 PO; -FURO-124 PO; -INSU100I32 SC; -METO50TA7 PO; -MULT-974 PO; -OLME40TA18 PO; -POTA10TA PO
[2019-06-18] MEDS ORDERED: FUROSEMIDE 40 MG/4 ML INJ (LASIX) IVP ONE (18:30)
[2019-06-18] MEDS ORDERED: ACETAMINOPHEN 325 MG TABLET PO PRN (18:30)
[2019-06-18] MEDS ORDERED: ANTACID SUSP 30 ML UDC (MYLANTA) PO PRN (18:30)
[2019-06-18] MEDS ORDERED: MELATONIN 3 MG TABLET PO PRN (18:30)
[2019-06-18] MEDS ORDERED: polyethylene glycoL POWDER 17 GM (MIRALAX) PACK PO PRN (18:30)
[2019-06-18] MEDS ORDERED: BISACODYL 10 MG SUPP (DULCOLAX) PR PRN (18:30)
[2019-06-18] MEDS ORDERED: inSUlin ASPART (NovoLOG) 1 UNIT/0.01 ML (CHARGE PER UNIT) SC SCH (18:30)
[2019-06-18] MEDS ORDERED: DOXYCYCLINE 100 MG (VIBRAMYCIN) TABLET PO ONE (18:30)
[2019-06-18] MEDS ORDERED: ONDANSETRON 4 MG (ZOFRAN) ORAL DISSOLVE TAB PO PRN (18:30)
[2019-06-18] MEDS ORDERED: diphenhydrAMINE 25 MG TAB (BENADRYL) PO PRN (18:30)
[2019-06-18] MEDS ORDERED: ONDANSETRON 4 MG/2 ML (SDV) Z0FRAN IV PRN (18:30)
[2019-06-18 21:00] VITALS: BP 116/67
[2019-06-18 21:07] LABS: BASOPHILS % (AUTO) 0 % (0-10); EOSINOPHILS % (AUTO) 0 % (0-10); HEMATOCRIT 39 % (35-52); HEMOGLOBIN 12.4 G/DL (11.5-16.0); LYMPHOCYTES # (AUTO) 1.9 X 10^3 (1.0-4.0); LYMPHOCYTES % (AUTO) 12 % (12-44); MEAN CORPUSCULAR HEMOGLOBIN 30 PG (25-34); MEAN CORPUSCULAR HGB CONC 32 G/DL (32-36); MEAN CORPUSCULAR VOLUME 93 FL (80-99); MEAN PLATELET VOLUME 10.6 FL (7.4-10.4); MONOCYTES # (AUTO) 1.8 X 10^3 (0.0-1.0); MONOCYTES % (AUTO) 12 % (0-12); NEUTROPHILS # (AUTO) 11.7 X 10^3 (1.8-7.8); NEUTROPHILS % (AUTO) 76 % (42-75); PLATELET COUNT 210 10^3/uL (130-400); RED CELL DISTRIBUTION WIDTH 14.8 % (10.0-14.5); WHITE BLOOD COUNT 15.4 10^3/uL (4.3-11.0)
[2019-06-18 21:15] VITALS: BP 120/72
[2019-06-18] MEDS ORDERED: PIPERACILLIN/TAZO 4.5 GM/NS 100 ML IV ONE ×2 (21:15)
[2019-06-18] MEDS ORDERED: FUROSEMIDE 40 MG/4 ML INJ (LASIX) ONE (21:26)
--- NOTE | 2019-06-18 21:27 | NUR ---
LOADING DOSE OF ZOSYN AND EXTENDED INFUSION ZOSYN WAS GIVEN IN [facility]. PER REPORT
[2019-06-18 21:30] VITALS: BP 124/81
[2019-06-18 21:34] LABS: CREATININE SERUM 1.12 MG/DL (0.60-1.30); POTASSIUM 3.8 MMOL/L (3.6-5.0)
[2019-06-18 21:35] LABS: ALBUMIN 3.5 GM/DL (3.2-4.5); BILIRUBIN,TOTAL 1.2 MG/DL (0.1-1.0); TOTAL PROTEIN 6.7 GM/DL (6.4-8.2)
[2019-06-18 21:36] LABS: BAND NEUTROPHILS 2 %; BASOPHILS % (MANUAL) 0 %; EOSINOPHILS % (MANUAL) 1 %; LYMPHOCYTES % (MANUAL) 10 %; MONOCYTES % (MANUAL) 7 %; NEUTROPHILS % (MANUAL) 80 %; RBC MORPH NORMAL
[2019-06-18 22:15] VITALS: BP 130/79
[2019-06-18 22:45] VITALS: BP 127/78
[2019-06-18 23:13] VITALS: BP 127/78
[2019-06-18] MEDS ORDERED: RT-ALBUTEROL SULF 2.5 MG/3 ML PRE-MIX VIAL INH PRN (23:30)
[2019-06-19] VITALS (24 sets, daily range): BP systolic 111–142; BP diastolic 65–89
[2019-06-19 04:01] LABS: BASOPHILS % (AUTO) 0 % (0-10); EOSINOPHILS # (AUTO) 0.1 10^3/uL (0.0-0.3); EOSINOPHILS % (AUTO) 0 % (0-10); HEMATOCRIT 38 % (35-52); HEMOGLOBIN 12.3 G/DL (11.5-16.0); LYMPHOCYTES % (AUTO) 14 % (12-44); MEAN CORPUSCULAR HEMOGLOBIN 30 PG (25-34); MEAN CORPUSCULAR HGB CONC 33 G/DL (32-36); MEAN CORPUSCULAR VOLUME 93 FL (80-99); MEAN PLATELET VOLUME 10.2 FL (7.4-10.4); MONOCYTES # (AUTO) 1.4 X 10^3 (0.0-1.0); MONOCYTES % (AUTO) 10 % (0-12); NEUTROPHILS # (AUTO) 11.2 X 10^3 (1.8-7.8); NEUTROPHILS % (AUTO) 76 % (42-75); PLATELET COUNT 213 10^3/uL (130-400); RED CELL DISTRIBUTION WIDTH 14.9 % (10.0-14.5); WHITE BLOOD COUNT 14.8 10^3/uL (4.3-11.0)
[2019-06-19] MEDS ORDERED: NS (IVPB) 100 ML ONE (04:03)
[2019-06-19] MEDS ORDERED: PIPERACILLIN/TAZO 4.5 GM VIAL (ZOSYN) IV ONE (04:03)
[2019-06-19 04:11] LABS: INR 1.3 (0.8-1.4); PROTHROMBIN TIME PATIENT 16.6 SEC (12.2-14.7)
[2019-06-19 04:19] LABS: ALBUMIN 3.4 GM/DL (3.2-4.5); BILIRUBIN,TOTAL 1.2 MG/DL (0.1-1.0); CALCIUM 8.9 MG/DL (8.5-10.1); CREATININE SERUM 1.05 MG/DL (0.60-1.30); MAGNESIUM 1.5 MG/DL (1.6-2.4); PHOSPHORUS 2.6 MG/DL (2.3-4.7); POTASSIUM 3.7 MMOL/L (3.6-5.0); TOTAL PROTEIN 6.7 GM/DL (6.4-8.2)
[2019-06-19] MEDS ORDERED: MAGNESIUM 1 GM/100 ML IVPB 200 ML IV ONE (04:52)
[2019-06-19] MEDS: PIPERACILLIN/TAZOBACTAM (BULK) 4.5 GM in NS (IVPB) 100 ML IV SCH ×2 (05:06→12:02)
[2019-06-19] MEDS: MAGNESIUM 1 GM/100 ML IVPB 100 ML IV SCH ×2 (05:06→06:22)
[2019-06-19] MEDS: inSUlin ASPART (NovoLOG) 1 UNIT/0.01 ML (CHARGE PER UNIT) SC SCH ×4 (05:07→20:45)
--- NOTE | 2019-06-19 05:26 | Pulmonary Consultation ---
History of Present Illness History of Present Illness Date Seen by Provider: Jun 19, 2019 Time Seen by Provider: 05:22 Date of Admission Allergies and Home Medications Allergies Coded Allergies: No Known Drug Allergies (Unverified , 02/12/17) Home Medications Clopidogrel Bisulfate 75 Mg Tablet, 75 MG PO DAILY Prescribed by: ESTEFANIA WATTS on 12/06/16930 Digoxin 250 Mcg Tablet, 0.25 MG PO DAILY Prescribed by: ESTEFANIA WATTS on 12/06/16930 Fish Oil/Dha/Epa 1 Each Capsule, 1,200 MG PO HS, (Reported) Flaxseed Oil 1,000 Mg Capsule, 1,000 MG PO DAILY, (Reported) Furosemide 40 Mg Tablet, 40 MG PO DAILY Prescribed by: ESTEFANIA WATTS on 12/06/16930 Magnesium Oxide 400 Mg Tablet, 400 MG PO DAILY, (Reported) Metformin HCl 1,000 Mg Tablet, 500 MG PO TIDWM, (Reported) TAKES 1/2 (1000MG) TABLET Metoprolol Succinate 100 Mg Tab.er.24h, 50 MG PO BID, (Reported) TAKES 1/2 (100MG) TABLET Multivitamin 1 Each Tablet, 1 TAB PO DAILY, (Reported) Norgestrel-Ethinyl Estradiol 1 Each Tablet, 1 TAB PO DAILY, (Reported) Olmesartan Medoxomil 40 Mg Tablet, 40 MG PO DAILY, (Reported) Oxycodone HCl/Acetaminophen 1 Each Tablet, 1-2 TAB PO Q4H PRN for PAIN Prescribed by: ORACIO BAILEY on 02/14/17 1247 Potassium Chloride 10 Meq Tablet.er, 10 MEQ PO DAILY@0700 Prescribed by: ESTEFANIA WATTS on 12/06/16930 Pravastatin Sodium 40 Mg Tablet, 40 MG PO HS, (Reported) Rivaroxaban 20 Mg Tablet, 20 MG PO HS, (Reported) Sitagliptin Phosphate 100 Mg Tablet, 100 MG PO DAILY, (Reported) Past Eaaltpx-Hwtckz-Pblffj Hx Patient Social History Recent Hopitalizations: No Immunizations Up To Date Tetanus Booster (TDap): Unknown PED Vaccines UTD: No Date of Influenza Vaccine: Dec 31, 2018 Seasonal Allergies Seasonal Allergies: No Past Medical History Sleep Apnea Currently Using CPAP: Yes Atrial Fibrillation, Coronary Artery Disease, High Cholesterol, Hypertension Reproductive Disorders: Yes (DUB) Female Reproductive Disorders: Menstrual Problems Sexually Transmitted Disease: No HIV/AIDS: No Loss of Vision: Bilateral Hearing Impairment: Denies Adverse Reaction/Blood Tranf: No Sepsis Event Evaluation Height, Weight, BMI Height: 5'6.00" Weight: 307lbs. 0.0oz. 139.435478jn; 50.68 BMI Method: Exam Exam Vital Signs Date Time Temp Pulse Resp B/P (MAP) Pulse Ox O2 Delivery O2 Flow Rate FiO2 06/19/19 05:00 78 32 136/86 (103) 90 OxyMask 9.00 06/19/19 04:00 90 OxyMask 7.00 06/19/19 04:00 85 30 131/88 (102) 89 OxyMask 9.00 06/19/19 03:58 37.7 06/19/19 03:00 80 34 125/76 (92) 89 OxyMask 9.00 06/19/19 02:00 85 32 124/84 (97) 91 OxyMask 9.00 06/19/19 01:00 88 06/19/19 01:00 84 32 121/83 (96) 92 OxyMask 9.00 06/19/19 00:23 37.2 OxyMask 7.00 06/19/19 00:00 88 34 129/81 (97) 94 OxyMask 9.00 06/19/19 00:00 94 OxyMask 7.00 06/18/19 23:13 95 93 06/18/19 22:45 81 32 127/78 (94) 92 OxyMask 9.00 06/18/19 22:39 OxyMask 9.00 06/18/19 22:15 83 30 130/79 (96) 92 OxyMask 10.00 06/18/19 21:45 94 19 93 OxyMask 10.00 06/18/19 21:30 89 32 124/81 (95) 91 OxyMask 10.00 06/18/19 21:15 77 34 120/72 (88) 92 OxyMask 10.00 06/18/19 21:15 77 34 120/72 (88) 92 OxyMask 10.00 06/18/19 21:00 95 OxyMask 10.00 06/18/19 21:00 36.9 90 17 116/67 (83) 94 OxyMask 10.00 06/18/19 21:00 36.9 90 17 116/67 (83) 94 OxyMask 10.00 06/18/19 20:44 87 I & O 06/19/19 07:00 Intake Total 600 ml Output Total 2200 ml Balance -1600 ml Height & Weight Height: 5'6.00" Weight: 307lbs. 0.0oz. 139.999073lf; 50.68 BMI Method: Results Lab Laboratory Tests 06/18/19 20:44 06/19/19 03:50 Assessment/Plan Assessment/Plan Bilateral infiltrates ARDS vs Pulmonary edema -check echo -Pt has not had fever since admission -Check BNP -IF BNP is normal will probably proceed with intubation -Pt is currenlty on oxy mask -Change to Vapotherm unless intubated -Currently on Doxy and Zosyn -repeat PCT is pending -MRSA swab pending -Influenza is negative -Dalton cultures pending ADRIANNE HAMPTON DO Jun 19, 2019 05:26
[2019-06-19 05:57] LABS: ABG BASE EXCESS 2.2 MMOL/L (-2.5-2.5); ABG OXYGEN SATURATION 92 % (94-100); ABG PCO2 35 MMHG (35-45); ABG PH 7.48 (7.37-7.43); ABG PO2 57 MMHG (79-93); ABG TCO2 26.7 MMOL/L (21.0-31.0)
[2019-06-19 05:58] LABS: ALLENS TEST POSITIVE; INSPIRED O2 RA; PATIENT TEMP 36.8; VENTILATOR NO
[2019-06-19] MEDS ORDERED: FUROSEMIDE 40 MG/4 ML INJ (LASIX) IVP ONE ×2 (06:15→09:00)
--- NOTE | 2019-06-19 06:49 | NUR ---
NOTIFIED DR YOON OF NEW CONSULT AND OF CRITICAL TROPONIN.
--- NOTE | 2019-06-19 07:59 | Diagnostic Imaging Report ---
INDICATION: Flash pulmonary edema, rule out covid. COMPARISON: None available TECHNIQUE: Single radiograph chest dated 06/19/2019 FINDINGS: The cardiac silhouette is enlarged. Central pulmonary vascular congestion is present. Extensive bilateral mixed interstitial and airspace opacities are present, right greater than left. Trace left pleural effusion suspected. No pneumothorax. No acute osseous abnormality. IMPRESSION: Extensive bilateral pulmonary opacities as described above. Given cardiomegaly and pulmonary vascular congestion, this is favored related to pulmonary edema. Superimposed infectious infiltrate not excluded. Recommend clinical correlation and continued radiographic follow-up. Dictated by: Dictated on workstation # [id number]
[2019-06-19] MEDS: DOXYCYCLINE 100 MG (VIBRAMYCIN) TABLET PO SCH ×2 (08:04→16:50)
[2019-06-19] MEDS ORDERED: KCL 20 MEQ TAB (K-DUR) PO ONE (09:00)
--- NOTE | 2019-06-19 09:20 | Consultation-Cardiology ---
HPI-Cardiology Cardiology Consultation Date of Consultation 06/19/19 Date of Admission Time Seen by Provider: 09:20 Indication: shortness of breath HPI 53-year-old lady with extensive cardiac history, has history of coronary artery disease, congestive heart failure, hypertension hyperlipidemia, has been having chest pain nonspecific etiology, atypical in presentation, some shortness of breath, seen at [facility] and noted to have fever, she was hypoxemic, required aggressive measures and transferred for further management here. Workup was done including COVID-19 testing that is still pending Home Medications & Allergies Allergies: Coded Allergies: No Known Drug Allergies (Unverified , 02/12/17) Home Medication List Reviewed: Yes [id number] Hx Patient Social History Employed/Student: employed Recent Hopitalizations: No Immunizations Up To Date Tetanus Booster (TDap): Unknown Date of Influenza Vaccine: Dec 31, 2018 Past Medical History Discussed below Family Medical History Family Medical Hx Noncontributory Review of Systems-General Review of Systems Constitutional: no symptoms reported, see HPI EENTM: see HPI, no symptoms reported Respiratory: see HPI; No cough; dyspnea on exertion; No hemoptysis, No orthopnea, No phlegm; short of breath; No stridor, No wheezing, No other Cardiovascular: see HPI, chest pain, edema; No Hx of Intervention, No palpitations, No syncope, No vascular heart diseas, No other Gastrointestinal: no symptoms reported, see HPI Genitourinary: no symptoms reported, see HPI Musculoskeletal: no symptoms reported, see HPI Skin: no symptoms reported, see HPI Psychiatric/Neurological: No Symptoms Reported, See HPI Reviewed Test Results Reviewed Test Results Lab Laboratory Tests Test 06/18/19 20:44 06/19/19 03:50 06/19/19 05:14 06/19/19 05:30 Range/Units White Blood Count 15.4 H 14.8 H 4.3-11.0 10^3/uL Red Blood Count 4.14 L 4.08 L 4.35-5.85 10^6/uL Hemoglobin 12.4 12.3 11.5-16.0 G/DL Hematocrit 39 38 35-52 % Mean Corpuscular Volume 93 93 80-99 FL Mean Corpuscular Hemoglobin 30 30 25-34 PG Mean Corpuscular Hemoglobin Concent 32 33 32-36 G/DL Red Cell Distribution Width 14.8 H 14.9 H 10.0-14.5 % Platelet Count 210 213 130-400 10^3/uL Mean Platelet Volume 10.6 H 10.2 7.4-10.4 FL Neutrophils (%) (Auto) 76 H 76 H 42-75 % Lymphocytes (%) (Auto) 12 14 12-44 % Monocytes (%) (Auto) 12 10 0-12 % Eosinophils (%) (Auto) 0 0 0-10 % Basophils (%) (Auto) 0 0 0-10 % Neutrophils # (Auto) 11.7 H 11.2 H 1.8-7.8 X 10^3 Lymphocytes # (Auto) 1.9 2.0 1.0-4.0 X 10^3 Monocytes # (Auto) 1.8 H 1.4 H 0.0-1.0 X 10^3 Eosinophils # (Auto) 0.0 0.1 0.0-0.3 10^3/uL Basophils # (Auto) 0.0 0.0 0.0-0.1 10^3/uL Neutrophils % (Manual) 80 % Lymphocytes % (Manual) 10 % Monocytes % (Manual) 7 % Eosinophils % (Manual) 1 % Basophils % (Manual) 0 % Band Neutrophils 2 % Blood Morphology Comment NORMAL Sodium Level 138 137 135-145 MMOL/L Potassium Level 3.8 3.7 3.6-5.0 MMOL/L Chloride Level 105 102 98-107 MMOL/L Carbon Dioxide Level 22 23 21-32 MMOL/L Anion Gap 11 12 5-14 MMOL/L Blood Urea Nitrogen 12 12 7-18 MG/DL Creatinine 1.12 1.05 0.60-1.30 MG/DL Estimat Glomerular Filtration Rate 51 55 BUN/Creatinine Ratio 11 11 Glucose Level 179 H 179 H 70-105 MG/DL Lactic Acid Level 1.83 0.50-2.00 MMOL/L Calcium Level 9.0 8.9 8.5-10.1 MG/DL Corrected Calcium 9.4 9.4 8.5-10.1 MG/DL Total Bilirubin 1.2 H 1.2 H 0.1-1.0 MG/DL Aspartate Amino Transf (AST/SGOT) 16 15 5-34 U/L Alanine Aminotransferase (ALT/SGPT) 17 16 0-55 U/L Alkaline Phosphatase 66 64 40-136 U/L Total Protein 6.7 6.7 6.4-8.2 GM/DL Albumin 3.5 3.4 3.2-4.5 GM/DL Procalcitonin 0.09 0.12 H <0.10 NG/ML Prothrombin Time 16.6 H 12.2-14.7 SEC INR Comment 1.3 0.8-1.4 Phosphorus Level 2.6 2.3-4.7 MG/DL Magnesium Level 1.5 L 1.6-2.4 MG/DL Troponin I 1.138 *H <0.028 NG/ML B-Type Natriuretic Peptide 241.3 H <100.0 PG/ML Blood Gas Puncture Site LEFT BRACHIAL Blood Gas Patient Temperature 36.8 Arterial Blood pH 7.48 H 7.37-7.43 Arterial Blood Partial Pressure CO2 35 35-45 MMHG Arterial Blood Partial Pressure O2 57 L 79-93 MMHG Arterial Blood HCO3 26 23-27 MMOL/L Arterial Blood Total CO2 26.7 21.0-31.0 MMOL/L Arterial Blood Oxygen Saturation 92 L 94-100 % Arterial Blood Base Excess 2.2 -2.5-2.5 MMOL/L Dontae Test POSITIVE Blood Gas Ventilator Setting NO Blood Gas Inspired Oxygen RA Test 06/19/19 08:09 Range/Units Physical Exam Physical Exam Vital Signs Vital Signs - First Documented 06/18/19 20:44 Pulse 87 Capillary Refill : Height, Weight, BMI Height: 5'6.00" Weight: 307lbs. 0.0oz. 139.517337wl; 50.68 BMI Method: General Appearance: No Apparent Distress, WD/WN Eyes: Bilateral Eye Normal Inspection, Bilateral Eye PERRL, Bilateral Eye EOMI HEENT: PERRL/EOMI, TMs Normal, Normal ENT Inspection, Pharynx Normal, Moist Mucous Membranes Neck: Full Range of Motion, Normal Inspection, Non Tender, Supple, Carotid Bruit Respiratory: Chest Non Tender, Normal Breath Sounds, No Accessory Muscle Use, No Respiratory Distress Cardiovascular: Regular Rate, Rhythm, No Edema, No Gallop, No JVD, No Murmur, Normal Peripheral Pulses Gastrointestinal: Normal Bowel Sounds, No Organomegaly, No Pulsatile Mass, Non Tender, Soft Back: Normal Inspection, No CVA Tenderness, No Vertebral Tenderness Extremity: Normal Capillary Refill, Normal Inspection, Normal Range of Motion, Non Tender, No Calf Tenderness, No Pedal Edema Neurologic/Psychiatric: Alert, Oriented x3, No Motor/Sensory Deficits, Normal Mood/Affect Skin: Normal Color, Warm/Dry Lymphatic: No Adenopathy A/P-Cardiology Admission Diagnosis Acute respiratory insufficiency Non-ST elevation myocardial infarction Coronary artery disease Congestive heart failure Assessment/Plan Shortness of breath, acute respiratory insufficiency, started on diuretics and antibiotics. Improving slowly COVID-19 testing is pending Non-ST elevation myocardial infarction, EKG did not show any acute abnormality, had elevation in troponin level. Not having any active chest pain today. Reporting improvement. Review of her record showed extensive coronary artery disease, small vessel disease not amendable to intervention with occlusion of the distal LAD, distal right coronary artery receiving collaterals from the left. Treated medically. We'll continue with maximizing medical therapy at this time and monitor Chronic persistent atrial fibrillation, maintained on oral anticoagulation, rate is controlled. Continue to monitor Congestive heart failure, acute on chronic left ventricular systolic dysfunc tion, ischemic cardiomyopathy, ejection fraction ranging between 35-40 percent in some studies and other studies 50-55 percent. Continue to maximize medical therapy at this time and monitor tolerance and response Hypertension, restart home medications and monitor blood pressure Hyperlipidemia, monitor lipids. Diabetes mellitus, followed and managed by primary care physician History of chronic renal insufficiency continue to monitor Obstructive sleep apnea, followed by Dr. Mcintosh Clinical Quality Measures DVT/VTE Risk/Contraindication: Risk Factor Score Per Nursin RFS Level Per Nursing on Admit: 3=High DWAYNE YOON MD Jun 19, 2019 9:20 am
[2019-06-19] MEDS: CLOPIDOGREL 75 MG (PLAVIX) TABLET PO SCH (12:01)
[2019-06-19] MEDS: ASPIRIN E.C. 81 MG (ECOTRIN) TAB PO SCH (12:02)
[2019-06-19] MEDS: PANTOPRAZOLE 40 MG (PROTONIX) TAB PO SCH (12:02)
--- NOTE | 2019-06-19 13:10 | History & Physical-Hospitalist ---
History of Present Illness HPI/Chief Complaint Abi Barnes is a 53-year-old female with past medical history of hypertension, diabetes, coronary artery disease, hyperlipidemia, atrial fibrillation, heart failure, who presented with shortness of breath. She was i nitially admitted to the [facility]. While she was there she had fever and shortness of breath. She was requiring high levels of oxygen which she does not usually require a baseline. She reports that she had a cough a few weeks ago but it denies any now. She reports having chest pain whenever she came in but denies any at this time. She denies any nausea or vomiting. She denies any abdominal pain. She denies any recent travel. 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 She does not know of any sick contacts. Source: patient Exam Limitations: no limitations Date Seen 06/19/19 Time Seen by a Provider: 10:25 Attending Physician Meir Corbin MD PCP Ramandeep Smith MD Referring Physician Date of Admission Jun 18, 2019 at 20:58 Home Medications & Allergies Home Medications Reviewed patient Home Medication Reconciliation performed by pharmacy medication reconciliations dairy technician and/or nursing. Patients Allergies have been reviewed. Allergies Allergies Coded Allergies No Known Drug Allergies ([id number]/13/17) Past Mtvqnxb-[id number]-Wtxnjg Hx Past Med/Social Hx: Reviewed Nursing Past Med/Soc Hx Patient Social History Employed/Student: employed Recent Hopitalizations: No Immunizations Up To Date Tetanus Booster (TDap): Unknown Pediatric: No Date of Influenza Vaccine: Dec 31, 2018 Seasonal Allergies Seasonal Allergies: No Past Medical History Currently Using CPAP: Yes Cardiac: Atrial Fibrillation, Coronary Artery Disease, High Cholesterol, Hypertension Reproductive: Yes (DUB) Sexually Transmitted Disease: No HIV/AIDS: No Female Reproductive Disorders: Menstrual Problems Loss of Vision: Bilateral Hearing Impairment: Denies Adverse Reaction to Blood Schaefer: No Review of Systems Constitutional: fever Respiratory: short of breath Cardiovascular: chest pain Gastrointestinal: no symptoms reported Genitourinary: no symptoms reported Musculoskeletal: no symptoms reported Skin: no symptoms reported Psychiatric/Neurological: No Symptoms Reported Physical Exam Physical Exam Vital Signs Vital Signs - First Documented 06/18/19 20:44 Pulse 87 Capillary Refill : Height, Weight, BMI Height: 5'6.00" Weight: 307lbs. 0.0oz. 139.346418tw; 50.68 BMI Method: General Appearance: No Apparent Distress, Obese Respiratory: No Respiratory Distress, Crackles, Other (wearing supplemental oxygen) Cardiovascular: Regular Rate, Rhythm, No Murmur Gastrointestinal: Normal Bowel Sounds, Non Tender, Soft Extremity: Normal Inspection, Non Tender, Pedal Edema Neurologic/Psychiatric: Alert, Oriented x3, No Motor/Sensory Deficits, Normal Mood/Affect Skin: Normal Color, Warm/Dry Results Results/Procedures Labs Laboratory Tests 06/18/19 20:44 06/19/19 03:50 Patient resulted labs reviewed. Imaging: Reviewed Imaging Report Assessment/Plan Admission Diagnosis acute respiratory failure with hypoxia Admission Status: Inpatient Order (span 2 midnights) Reason for Inpatient Admission: respiratory failure requiring supplemental oxygen and further evaluation Assessment and Plan acute hypoxic respiratory failure Possible pneumonia acute on chronic heart failure with reduced ejection fraction NSTEMI transferred from [place] requiring 9 L Oxymask WBC mildly elevated, afebrile since admission Procalcitonin negative 2 Respiratory viral panel pending Influenza testing negative Started on Zosyn and doxycycline Discontinue Zosyn Repeat procalcitonin tomorrow COVID testing pending troponin elevated at 1.138 Cardiology consulted, appreciate assistance hypertension Coronary artery disease Hyperlipidemia Persistent atrial fibrillation Continue home meds Type II diabetes mellitus Sliding scale insulin DVT prophylaxis: Already receiving therapeutic anticoagulation Diagnosis/Problems Diagnosis/Problems (1) Acute respiratory failure with hypoxia Status: Acute Clinical Quality Measures DVT/VTE Risk/Contraindication: Risk Factor Score Per Nursin RFS Level Per Nursing on Admit: 3=High MEIR CORBIN MD Jun 19, 2019 13:10
[2019-06-19] MEDS ORDERED: meTOproloL SUCCINATE 50 MG (TOPROL XL) TAB PO NR (13:30)
[2019-06-19] MEDS ORDERED: METF-399 PO (13:45)
[2019-06-19] MEDS ORDERED: MULT-974 PO (13:45)
[2019-06-19] MEDS ORDERED: DIGO250T3 PO (13:45)
[2019-06-19] MEDS ORDERED: CLOP75TA69 PO (13:45)
[2019-06-19] MEDS ORDERED: FURO-124 PO (13:45)
[2019-06-19] MEDS ORDERED: INSU100I32 SC (13:45)
[2019-06-19] MEDS ORDERED: OLME40TA18 PO (13:45)
[2019-06-19] MEDS ORDERED: POTA10TA PO (13:45)
[2019-06-19] MEDS ORDERED: METO50TA7 PO (13:45)
[2019-06-19] MEDS ORDERED: AMLO5TAB9 PO (13:50)
--- NOTE | 2019-06-19 13:51 | NUR ---
UNABLE TO SPEAK TO THE PT AT THIS TIME- HER PCP FAXED OVER AN ACTIVE MEDS LIST AND I WENT THRU THE EXT MED HISTORY TO COMPLETE THE MED REC. AMLODIPINE- THE MED LIST FROM THE DR OFFICE SAYS 5MG (IT WAS FILLED 04-21-2019 #90) HOWEVER ON 04-29-2019 SHADICAESARJason FILLED THE 10MG #30. I CALLED [facility] TO SEE IF THERE WERE ANY INDICATIONS THIS INCREASE WAS SHORT TERM AND THEY DID NOT HAVE ANY RECORD OF THAT. I KEPT THE 5MG ON THE MED REC SINCE THAT IS WHAT IS ON THE LIST FROM THE OFFICE AND UNLIKE THE 10MG IT IS NOT PAST DUE. METOPROLOL SUCC- THE MED LIST SAYS 100MG ONCE DAILY- HOWEVER FOR THE PAST SEVERAL MONTHS SHADICASEARJason HAS FILLED 50MG ONCE DAILY. THE 50MG IS WHAT IS ON THE MED REC LOWOGESTREL: THIS IS LISTED ON THE MED LIST FROM THE OFFICE BUT SHADICAESARJason DOESNT HAVE A RECORD OF FILLING THAT (AT LEAST NOT IN THE PAST YEAR)- FOR THIS REASON IT WAS LEFT OFF THE MED REC OTC MEDS: MAGNESIUM FISH OIL IF/WHEN I AM ABLE TO SPEAK WITH THE PT I WILL UPDATE THE MED REC AND NOTES NEEDED
[2019-06-19] MEDS: RIVAROXABAN 20 MG TABLET (XARELTO) PO SCH (16:53)
[2019-06-20] VITALS (24 sets, daily range): BP systolic 114–144; BP diastolic 67–93
[2019-06-20 03:04] LABS: BASOPHILS % (AUTO) 0 % (0-10); EOSINOPHILS # (AUTO) 0.1 10^3/uL (0.0-0.3); EOSINOPHILS % (AUTO) 1 % (0-10); HEMATOCRIT 38 % (35-52); HEMOGLOBIN 12.3 G/DL (11.5-16.0); LYMPHOCYTES % (AUTO) 14 % (12-44); MEAN CORPUSCULAR HEMOGLOBIN 30 PG (25-34); MEAN CORPUSCULAR HGB CONC 32 G/DL (32-36); MEAN CORPUSCULAR VOLUME 93 FL (80-99); MEAN PLATELET VOLUME 10.4 FL (7.4-10.4); MONOCYTES # (AUTO) 1.8 X 10^3 (0.0-1.0); MONOCYTES % (AUTO) 13 % (0-12); NEUTROPHILS # (AUTO) 10.1 X 10^3 (1.8-7.8); NEUTROPHILS % (AUTO) 72 % (42-75); PLATELET COUNT 205 10^3/uL (130-400); RED CELL DISTRIBUTION WIDTH 14.7 % (10.0-14.5); WHITE BLOOD COUNT 14.1 10^3/uL (4.3-11.0)
[2019-06-20 03:22] LABS: ALBUMIN 3.2 GM/DL (3.2-4.5); BILIRUBIN,TOTAL 1.1 MG/DL (0.1-1.0); CALCIUM 8.7 MG/DL (8.5-10.1); CREATININE SERUM 1.06 MG/DL (0.60-1.30); MAGNESIUM 1.9 MG/DL (1.6-2.4); PHOSPHORUS 2.2 MG/DL (2.3-4.7); POTASSIUM 4.2 MMOL/L (3.6-5.0); TOTAL PROTEIN 6.7 GM/DL (6.4-8.2)
[2019-06-20] MEDS: inSUlin ASPART (NovoLOG) 1 UNIT/0.01 ML (CHARGE PER UNIT) SC SCH ×4 (05:24→21:21)
[2019-06-20] MEDS: MAGNESIUM 1 GM/100 ML IVPB 100 ML IV SCH (05:24)
[2019-06-20] MEDS: POTASSIUM CL 10MEQ/50ML IVPB 50 ML IV SCH (05:24)
[2019-06-20] MEDS: KCL 20 MEQ TAB (K-DUR) PO SCH (05:24)
[2019-06-20] MEDS: DOXYCYCLINE 100 MG (VIBRAMYCIN) TABLET PO SCH ×2 (06:36→17:49)
[2019-06-20] MEDS: CLOPIDOGREL 75 MG (PLAVIX) TABLET PO SCH (07:54)
[2019-06-20] MEDS: meTOproloL SUCCINATE 50 MG (TOPROL XL) TAB PO SCH (07:54)
[2019-06-20] MEDS: PANTOPRAZOLE 40 MG (PROTONIX) TAB PO SCH (07:54)
[2019-06-20] MEDS: ASPIRIN E.C. 81 MG (ECOTRIN) TAB PO SCH (07:54)
[2019-06-20 08:18] LABS: ABG BASE EXCESS 1.8 MMOL/L (-2.5-2.5); ABG OXYGEN SATURATION 96 % (94-100); ABG PCO2 33 MMHG (35-45); ABG PH 7.49 (7.37-7.43); ABG PO2 76 MMHG (79-93)
[2019-06-20 08:21] LABS: ALLENS TEST YES-POS
[2019-06-20 08:22] LABS: INSPIRED O2 75%; VENTILATOR NO
--- NOTE | 2019-06-20 10:07 | Progress Note - Cardiology ---
Cardiology SOAP Progress Note Subjective: She states she is feeling good. No c/o CP, palpitations. She feels her SOB has improved. She reports an occ dry cough. Objective: I&O/Vital Signs 06/20/19 06/20/19 06/20/19 06/20/19 04:00 04:00 05:00 06:00 Pulse 73 79 75 Resp 24 32 32 B/P (MAP) 128/67 (87) 120/77 (91) 131/78 (95) Pulse Ox 94 92 92 90 O2 Delivery Vapotherm Vapotherm Vapotherm Vapotherm O2 Flow Rate 35.00 35.00 35.00 35.00 65.00 65.00 65.00 FiO2 65 06/20/19 06/20/19 06/20/19 06/20/19 06:41 06:41 06:44 07:00 Pulse 78 84 Resp 10 B/P (MAP) 130/90 (103) Pulse Ox 91 90 O2 Delivery Vapotherm Vapotherm Vapotherm O2 Flow Rate 35.00 35.00 35.00 75.00 75.00 FiO2 70 06/20/19 06/20/19 06/20/19 06/20/19 08:00 08:00 08:00 09:00 Temp 37.0 Pulse 86 84 Resp 24 B/P (MAP) 136/86 (103) 121/88 (99) Pulse Ox 93 92 92 O2 Delivery Vapotherm Vapotherm Vapotherm O2 Flow Rate 35.00 35.00 35.00 75.00 75.00 FiO2 75 06/20/19 06/20/19 06/20/19 06/20/19 10:00 10:37 11:00 12:00 Temp 37.4 Pulse 91 84 Resp 25 24 B/P (MAP) 116/69 (85) 134/84 (101) Pulse Ox 92 96 94 O2 Delivery Vapotherm Vapotherm Vapotherm O2 Flow Rate 35.00 35.00 35.00 75.00 75.00 FiO2 75 06/20/19 06/20/19 06/20/19 06/20/19 12:00 12:00 12:48 13:00 Pulse 73 70 76 Resp 32 31 B/P (MAP) 138/75 (96) 124/76 (92) Pulse Ox 92 92 93 O2 Delivery Vapotherm Vapotherm Vapotherm O2 Flow Rate 35.00 35.00 35.00 75.00 75.00 FiO2 75 06/20/19 06/20/19 06/20/19 14:00 14:40 15:00 Pulse 82 85 Resp 35 18 B/P (MAP) 135/82 (99) 141/88 (105) Pulse Ox 92 93 94 O2 Delivery Vapotherm Vapotherm Vapotherm O2 Flow Rate 35.00 35.00 35.00 75.00 75.00 FiO2 75 06/19/19 23:59 Intake Total 1570 ml Output Total 2050 ml Balance -480 ml Weight (Pounds): 307 Weight (Ounces): 0.0 Weight (Calculated Kilograms): 139.107001 Constitutional: AAO x 3 Respiratory: No accessory muscle use, No respiratory distress; chest expansion is symmetric, chest is bilaterally symmetric, other (diminished bases bilat) Cardiovascular: irregularly irregular; No JVD; S1 and S2 Gastrointestional: No tender; round, audible bowel sounds Extremities: no lower extremity edema bilateral Neurologic/Psychiatric: grossly intact (moves all exremities) Skin: No rash on exposed areas, No ulcerations on exposed areas Results/Procedures: Labs Laboratory Tests 06/19/19 16:42: Glucometer 182H 06/19/19 20:42: Glucometer 168H 06/20/19 02:49: White Blood Count 14.1H, Red Blood Count 4.10L, Hemoglobin 12.3, Hematocrit 38, Mean Corpuscular Volume 93, Mean Corpuscular Hemoglobin 30, Mean Corpuscular Hemoglobin Concent 32, Red Cell Distribution Width 14.7H, Platelet Count 205, Mean Platelet Volume 10.4, Neutrophils (%) (Auto) 72, Lymphocytes (%) (Auto) 14, Monocytes (%) (Auto) 13H, Eosinophils (%) (Auto) 1, Basophils (%) (Auto) 0, Neutrophils # (Auto) 10.1H, Lymphocytes # (Auto) 2.0, Monocytes # (Auto) 1.8H, Eosinophils # (Auto) 0.1, Basophils # (Auto) 0.0, Sodium Level 136, Potassium Level 4.2, Chloride Level 103, Carbon Dioxide Level 22, Anion Gap 11, Blood Urea Nitrogen 14, Creatinine 1.06, Estimat Glomerular Filtration Rate 54, BUN/Creatinine Ratio 13, Glucose Level 162H, Calcium Level 8.7, Corrected Calcium 9.3, Phosphorus Level 2.2L, Magnesium Level 1.9, Total Bilirubin 1.1H, Aspartate Amino Transf (AST/SGOT) 15, Alanine Aminotransferase (ALT/SGPT) 17, Alkaline Phosphatase 73, Total Protein 6.7, Albumin 3.2 06/20/19 08:06: Blood Gas Puncture Site RT RAD, Blood Gas Patient Temperature 37.0, Arterial Blood pH 7.49H, Arterial Blood Partial Pressure CO2 33L, Arterial Blood Partial Pressure O2 76L, Arterial Blood HCO3 25, Arterial Blood Total CO2 26.0, Arterial Blood Oxygen Saturation 96, Arterial Blood Base Excess 1.8, Dontae Test YES-POS, Blood Gas Ventilator Setting NO, Blood Gas Inspired Oxygen 75% 06/20/19 11:29: Glucometer 208H Microbiology 06/18/19 MRSA Screen - Final, Complete MRSA not isolated A/P: Assessment: Acute respiratory distress likely secondary to pneumonia/CHF COVID-19 testing is pending Type 2 RI likely secondary to hypoxia d/t pneumonia/CHF Acute on chronic diastolic CHF Cardiac cath of December 2016: 80% mid vessel stenosis in the LAD which was stented with an [employer] Xience 3.0mm x 18 mm stent. The distal LAD is occluded. The left Cx artery had diffuse mild to mod disease. The RCA has mod prox and mid vessel disease and severe distal disease and is collateralized from the left coronary system. LVEF 35-40%. anterolateral, apical and diaphragmatic hypokinesis of the LV. Elevated LVEDP. Mild MR Echo of September 2018 LVEF 50-55%. LA is mod to severely dilated. Mod MR. RVSP approx 22 mmHg A Fib of undetermined age, first diagnosed on an ECG of 11/13/16 24 Hour Holter of July 09, 2017 showed a-fib with an average HR of 72 bpm. Isolated PVC's. No VT. No signif marly MPI of May 13, 2019: Cardiomegaly. Well preserved global left ventricular systolic function with ejection fraction of 52%. No distinct evidence of myocardial ischemia or infarction. Chronic persistent atrial fibrillation, maintained on oral anticoagulation, rate is controlled Hypertension Hyperlipidemia Diabetes mellitus, followed and managed by primary care physician History of chronic renal insufficiency continue to monitor Obstructive sleep apnea, followed by Dr. Mcintosh Fam h/o early CAD (mother in her early 60s) DM II H/o epistaxis that is managed by Dr Smiley Plan: Continue current medication regimen COVID 19 testing pending Management of pneumonia is per pulmonary/medical services Continue BB for rate control Continue OAC d/t chronic a-fib Continue ASA - d/t known CAD Continue diuretics Monitor lab and replace electrolytes as indicated Review of chart has been completed/discussed with Dr. Ospina Physician Assessment Physician Assessment I reviewed her records and discussed her case in detail with Dr Ospina who has been taking cardiac care of her. I discussed it in detail with Wyatt Doyle APRN. Our evaluation and recommendations are as outlined and updated above Magdalena Gaitan MD MA [facility] ESTEFANIA DOYLE [facility] Jun 20, 2019 10:07 MAGDALENA GAITAN MD [facility] Jun 20, 2019 15:39
[2019-06-20 10:29] LABS: RSV PCR TEST Not Detected (Not Detected)
--- NOTE | 2019-06-20 10:42 | Diagnostic Imaging Report ---
INDICATION: Flash pulmonary edema, Covid rule out COMPARISON STUDY: Chest from yesterday. FINDINGS: Frontal view of the chest demonstrates stable cardiomegaly. Pulmonary congestion has decreased. Pulmonary infiltrates consistent with edema have decreased. No focal infiltrates are present. IMPRESSION: Stable cardiomegaly with decreasing pulmonary congestion and edema. There are no focal infiltrates. Dictated by: Dictated on workstation # [id number]
--- NOTE | 2019-06-20 14:00 | Progress Note - Hospitalist ---
Subjective HPI/CC On Admission Date Seen by Provider: Jun 20, 2019 Time Seen by Provider: 10:40 Abi Barnes is a 53-year-old female with past medical history of hypertension, diabetes, coronary artery disease, hyperlipidemia, atrial fibrillation, heart failure, who presented with shortness of breath. She was initially admitted to the [facility]. While she was there she had fever and shortness of breath. She was requiring high levels of oxygen which she does not usually require a baseline. She reports that she had a cough a few weeks ago but it denies any now. She reports having chest pain whenever she came in but denies any at this time. She denies any nausea or vomiting. She denies any abdominal pain. She denies any recent travel. 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 She does not know of any sick contacts. Subjective/Events-last exam She denies any subjective shortness of breath. She continues to have a cough. She denies any fevers or chills. She denies any chest pain. She denies any nausea or vomiting. She still has a good appetite. She reports fatigue. Focused Exam Lactate Level 06/18/19 20:44: Lactic Acid Level 1.83 Objective Exam Vital Signs Vital Signs Date Time Temp Pulse Resp B/P (MAP) Pulse Ox O2 Delivery O2 Flow Rate FiO2 06/20/19 12:00 73 32 138/75 (96) 92 Vapotherm 35.00 75.00 06/20/19 12:00 75 06/20/19 12:00 37.4 Capillary Refill : Less Than 3 Seconds General Appearance: No Apparent Distress, Obese Respiratory: Lungs Clear, Normal Breath Sounds, No Respiratory Distress, Other (Wearing nasal cannula) Cardiovascular: Regular Rate, Rhythm, No Murmur Gastrointestinal: Normal Bowel Sounds, Non Tender, Soft Extremity: Normal Inspection, Non Tender, Pedal Edema Neurologic/Psychiatric: Alert, Oriented x3, No Motor/Sensory Deficits, Normal Mood/Affect Skin: Normal Color, Warm/Dry Results/Procedures Lab Laboratory Tests 06/20/19 02:49 Patient resulted labs reviewed. Imaging: Reviewed Imaging Report Assessment/Plan Assessment and Plan Assess & Plan/Chief Complaint acute hypoxic respiratory failure Possible pneumonia acute on chronic heart failure with reduced ejection fraction NSTEMI Continue Vapotherm WBC mildly elevated, afebrile since admission Procalcitonin negative 2 Respiratory viral panel negative Influenza testing negative Continue doxycycline COVID testing pending troponin elevated on admission Cardiology consulted, appreciate assistance Continue Lasix hypertension Coronary artery disease Hyperlipidemia Persistent atrial fibrillation Continue home meds Type II diabetes mellitus Sliding scale insulin DVT prophylaxis: Already receiving therapeutic anticoagulation Diagnosis/Problems Diagnosis/Problems (1) Acute respiratory failure with hypoxia Status: Acute (2) CHF (congestive heart failure) Status: Acute Qualifiers: Heart failure type: systolic Heart failure chronicity: acute on chronic Qualified Codes: I50.23 - Acute on chronic systolic (congestive) heart failure Clinical Quality Measures DVT/VTE Risk/Contraindication: Risk Factor Score Per Nursin RFS Level Per Nursing on Admit: 3=High MEIR CORBIN MD Jun 20, 2019 14:00
[2019-06-20] MEDS ORDERED: FUROSEMIDE 40 MG/4 ML INJ (LASIX) IVP NR (14:15)
[2019-06-20] MEDS: RIVAROXABAN 20 MG TABLET (XARELTO) PO SCH (17:49)
[2019-06-20] MEDS ORDERED: RT-ALBUTEROL HFA (PROAIR HFA) 8.5 GM IH PRN (19:15)
--- NOTE | 2019-06-20 21:00 | NUR ---
This RN educated patient on the importance of wearing BiPAP to improve her respiratory status. Patient refused. Currently on Vapotherm 30L 75%. Will continue to monitor.
[2019-06-21] VITALS (23 sets, daily range): BP systolic 82–138; BP diastolic 58–92
[2019-06-21 04:11] LABS: BASOPHILS % (AUTO) 0 % (0-10); EOSINOPHILS # (AUTO) 0.3 10^3/uL (0.0-0.3); EOSINOPHILS % (AUTO) 2 % (0-10); HEMATOCRIT 39 % (35-52); HEMOGLOBIN 12.7 G/DL (11.5-16.0); LYMPHOCYTES # (AUTO) 1.9 X 10^3 (1.0-4.0); LYMPHOCYTES % (AUTO) 16 % (12-44); MEAN CORPUSCULAR HEMOGLOBIN 30 PG (25-34); MEAN CORPUSCULAR HGB CONC 33 G/DL (32-36); MEAN CORPUSCULAR VOLUME 92 FL (80-99); MEAN PLATELET VOLUME 10.1 FL (7.4-10.4); MONOCYTES # (AUTO) 1.5 X 10^3 (0.0-1.0); MONOCYTES % (AUTO) 12 % (0-12); NEUTROPHILS # (AUTO) 8.4 X 10^3 (1.8-7.8); NEUTROPHILS % (AUTO) 70 % (42-75); PLATELET COUNT 241 10^3/uL (130-400); RED CELL DISTRIBUTION WIDTH 14.4 % (10.0-14.5)
[2019-06-21 04:36] LABS: ALBUMIN 3.4 GM/DL (3.2-4.5); CALCIUM 9.5 MG/DL (8.5-10.1); CREATININE SERUM 1.02 MG/DL (0.60-1.30); MAGNESIUM 1.8 MG/DL (1.6-2.4); PHOSPHORUS 2.9 MG/DL (2.3-4.7); POTASSIUM 3.5 MMOL/L (3.6-5.0); TOTAL PROTEIN 7.4 GM/DL (6.4-8.2)
[2019-06-21] MEDS: KCL 20 MEQ TAB (K-DUR) PO SCH (05:19)
[2019-06-21] MEDS: inSUlin ASPART (NovoLOG) 1 UNIT/0.01 ML (CHARGE PER UNIT) SC SCH ×4 (05:19→21:08)
[2019-06-21] MEDS: MAGNESIUM 1 GM/100 ML IVPB 100 ML IV SCH (05:19)
[2019-06-21] MEDS: POTASSIUM CL 10MEQ/50ML IVPB 50 ML IV SCH (05:19)
[2019-06-21] MEDS: DOXYCYCLINE 100 MG (VIBRAMYCIN) TABLET PO SCH ×2 (07:04→16:17)
--- NOTE | 2019-06-21 07:57 | Diagnostic Imaging Report ---
Indication: Flash pulmonary edema. Compared: 06/20/2019 Findings: Enlargement of the cardiac silhouette and bilateral pulmonary nonspecific mixed interstitial and airspace opacity unchanged, edema versus pneumonia. No evidence for pleural fluid. No pneumothorax. Impression: No change in enlargement of the heart and bilateral pulmonary opacity. Dictated by: Dictated on workstation # [id number]
[2019-06-21] MEDS ORDERED: KCL 20 MEQ TAB (K-DUR) PO ONE (08:00)
[2019-06-21] MEDS: PANTOPRAZOLE 40 MG (PROTONIX) TAB PO SCH (08:27)
[2019-06-21] MEDS: ASPIRIN E.C. 81 MG (ECOTRIN) TAB PO SCH (08:27)
[2019-06-21] MEDS: meTOproloL SUCCINATE 50 MG (TOPROL XL) TAB PO SCH (08:27)
[2019-06-21] MEDS: FUROSEMIDE 40 MG/4 ML INJ (LASIX) IVP SCH (08:27)
--- NOTE | 2019-06-21 11:09 | Progress Note - Hospitalist ---
Subjective HPI/CC On Admission Date Seen by Provider: Jun 21, 2019 Time Seen by Provider: 09:10 Abi Barnes is a 53-year-old female with past medical history of hypertension, diabetes, coronary artery disease, hyperlipidemia, atrial fibrillation, heart failure, who presented with shortness of breath. She was initially admitted to the [facility]. While she was there she had fever and shortness of breath. She was requiring high levels of oxygen which she does not usually require a baseline. She reports that she had a cough a few weeks ago but it denies any now. She reports having chest pain whenever she came in but denies any at this time. She denies any nausea or vomiting. She denies any abdominal pain. She denies any recent travel. 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 She does not know of any sick contacts. Subjective/Events-last exam she was getting agitated last night. She does not like being confined to her hospital bed and room. She is feeling better this morning. She is denies any shortness of breath or cough. She denies any fevers or chills. She denies any chest pain. Focused Exam Lactate Level 06/18/19 20:44: Lactic Acid Level 1.83 Objective Exam Vital Signs Vital Signs Date Time Temp Pulse Resp B/P (MAP) Pulse Ox O2 Delivery O2 Flow Rate FiO2 06/21/19 10:29 94 Vapotherm 30.00 60 06/21/19 10:00 77 26 118/92 (101) 06/21/19 08:53 36.8 Capillary Refill : Less Than 3 Seconds General Appearance: No Apparent Distress, WD/WN, Other (wearing nasal cannula) Respiratory: Lungs Clear, Normal Breath Sounds, No Respiratory Distress, Other Cardiovascular: Regular Rate, Rhythm, No Murmur Extremity: Normal Inspection, Non Tender, Pedal Edema Neurologic/Psychiatric: Alert, Oriented x3, No Motor/Sensory Deficits, Normal Mood/Affect Skin: Normal Color, Warm/Dry Results/Procedures Lab Laboratory Tests 06/21/19 03:50 Patient resulted labs reviewed. Imaging: Reviewed Imaging Report Assessment/Plan Assessment and Plan Assess & Plan/Chief Complaint acute hypoxic respiratory failure Possible pneumonia acute on chronic heart failure with reduced ejection fraction NSTEMI Continue Vapotherm WBC mildly elevated, afebrile since admission Procalcitonin negative 2 Respiratory viral panel negative Influenza testing negative Continue doxycycline COVID testing pending troponin elevated on admission Cardiology consulted, appreciate assistance Continue Lasix wean oxygen aggressively as able hypertension Coronary artery disease Hyperlipidemia Persistent atrial fibrillation Continue home meds Type II diabetes mellitus Sliding scale insulin DVT prophylaxis: Already receiving therapeutic anticoagulation Diagnosis/Problems Diagnosis/Problems (1) Acute respiratory failure with hypoxia Status: Acute (2) CHF (congestive heart failure) Status: Acute Qualifiers: Heart failure type: systolic Heart failure chronicity: acute on chronic Qualified Codes: I50.23 - Acute on chronic systolic (congestive) heart failure Clinical Quality Measures DVT/VTE Risk/Contraindication: Risk Factor Score Per Nursin RFS Level Per Nursing on Admit: 3=High MEIR CORBIN MD Jun 21, 2019 11:09
--- NOTE | 2019-06-21 12:50 | NUR ---
COVID-19 NEGATIVE PER [facility] STONE INFECTION CONTROL. BOTH PT AND DR CORBIN INFORMED.
--- NOTE | 2019-06-21 13:22 | Progress Note - Cardiology ---
Cardiology SOAP Progress Note Subjective: Feels better today and wishes to go home Shortness of breath much improved, now at usual baseline No cp or palp or syncope or swelling No n/v/d Some gen weakness and malaise No focal weakness Objective: I&O/Vital Signs 06/21/19 06/21/19 06/21/19 06/21/19 02:00 03:00 04:00 04:00 Pulse 77 87 82 Resp 20 28 17 B/P (MAP) 115/72 (86) 122/84 (97) 121/87 (98) Pulse Ox 91 93 93 95 O2 Delivery Vapotherm Vapotherm Vapotherm Vapotherm O2 Flow Rate 30.00 30.00 30.00 30.00 75.00 75.00 75.00 FiO2 75 06/21/19 06/21/19 06/21/19 06/21/19 05:00 06:00 07:00 07:00 Pulse 80 75 81 83 Resp 26 27 31 B/P (MAP) 121/75 (90) 119/71 (87) 82/58 (66) Pulse Ox 92 96 93 O2 Delivery Vapotherm Vapotherm Vapotherm O2 Flow Rate 30.00 30.00 30.00 75.00 75.00 75.00 06/21/19 06/21/19 06/21/19 06/21/19 07:20 08:00 08:00 08:53 Temp 36.8 Pulse 82 Resp 28 B/P (MAP) 132/89 (103) Pulse Ox 92 96 96 O2 Delivery Vapotherm Vapotherm Vapotherm O2 Flow Rate 30.00 30.00 30.00 75.00 FiO2 75 75 06/21/19 06/21/19 06/21/19 06/21/19 09:00 09:20 10:00 10:29 Pulse 90 77 Resp 17 26 B/P (MAP) 122/81 (95) 118/92 (101) Pulse Ox 96 93 94 O2 Delivery Vapotherm Vapotherm Vapotherm Vapotherm O2 Flow Rate 30.00 30.00 30.00 30.00 75.00 60.00 60.00 FiO2 60 06/21/19 06/21/19 06/21/19 06/21/19 11:00 11:04 11:47 12:00 Temp 36.9 Pulse 79 85 Resp 38 22 B/P (MAP) 122/76 (91) 113/79 (90) Pulse Ox 94 93 93 O2 Delivery Vapotherm Vapotherm Vapotherm O2 Flow Rate 30.00 30.00 30.00 60.00 60.00 FiO2 60 06/21/19 12:33 Pulse 79 06/21/19 00:00 Intake Total 1480 ml Output Total 2600 ml Balance -1120 ml Weight (Pounds): 307 Weight (Ounces): 0.0 Weight (Calculated Kilograms): 139.169629 Constitutional: AAO x 3, well-developed, well-nourished Respiratory: No accessory muscle use, No respiratory distress; chest expansion is symmetric, chest is bilaterally symmetric, other (good bilat air entry) Cardiovascular: irregularly irregular; No JVD; S1 and S2 Gastrointestional: No tender; round; No guarding, No rebound; audible bowel sounds Extremities: No clubbing, No cyanosis, No significant edema Neurologic/Psychiatric: oriented x 3, other (moves all limbs equally) Skin: No rash on exposed areas, No ulcerations on exposed areas Results/Procedures: Labs Laboratory Tests 06/20/19 20:44: Glucometer 213H 06/21/19 03:50: White Blood Count 12.0H, Red Blood Count 4.20L, Hemoglobin 12.7, Hematocrit 39, Mean Corpuscular Volume 92, Mean Corpuscular Hemoglobin 30, Mean Corpuscular Hemoglobin Concent 33, Red Cell Distribution Width 14.4, Platelet Count 241, Mean Platelet Volume 10.1, Neutrophils (%) (Auto) 70, Lymphocytes (%) (Auto) 16, Monocytes (%) (Auto) 12, Eosinophils (%) (Auto) 2, Basophils (%) (Auto) 0, Neutrophils # (Auto) 8.4H, Lymphocytes # (Auto) 1.9, Monocytes # (Auto) 1.5H, Eosinophils # (Auto) 0.3, Basophils # (Auto) 0.0, Sodium Level 137, Potassium Level 3.5L, Chloride Level 101, Carbon Dioxide Level 23, Anion Gap 13, Blood Urea Nitrogen 17, Creatinine 1.02, Estimat Glomerular Filtration Rate 57, BUN/Creatinine Ratio 17, Glucose Level 169H, Calcium Level 9.5, Corrected Calcium 10.0, Phosphorus Level 2.9, Magnesium Level 1.8, Total Bilirubin 1.0, Aspartate Amino Transf (AST/SGOT) 15, Alanine Aminotransferase (ALT/SGPT) 17, Alkaline Phosphatase 85, Total Protein 7.4, Albumin 3.4 06/21/19 11:01: Glucometer 209H Microbiology 06/18/19 MRSA Screen - Final, Complete MRSA not isolated Laboratory Tests 06/20/19 02:49 06/21/19 03:50 A/P: Assessment: Shortness of breath due to pneumonia and CHF Acute on chronic diastolic CHF. LVEF 52% on MPI of May 2019 Cardiac cath of December 2016: 80% mid vessel stenosis in the LAD which was stented with an YOOSEine Xience 3.0mm x 18 mm stent. The distal LAD is occluded. The left Cx artery had diffuse mild to mod disease. The RCA has mod prox and mid vessel disease and severe distal disease and is collateralized from the left coronary system. LVEF 35-40%. anterolateral, apical and diaphragmatic hypokinesis of the LV. Elevated LVEDP. Mild MR Type 2 [place] during this hosp of June 2019, likely secondary to hypoxia d/t pneumonia/CHF Echo of September 2018 LVEF 50-55%. LA is mod to severely dilated. Mod MR. RVSP approx 22 mmHg Chronic A Fib, first diagnosed on an ECG of 11/13/16. 24 Hour Holter of July 09, 2017 showed a-fib with an average HR of 72 bpm. Isolated PVC's. No VT. No signif marly MPI of May 13, 2019: Cardiomegaly. Well preserved global left ventricular systolic function with ejection fraction of 52%. No distinct evidence of myocardial ischemia or infarction. Hypertension Hyperlipidemia Diabetes mellitus, followed and managed by primary care physician CKD-2 Obstructive sleep apnea, followed by Dr. Mcintosh DM II H/o epistaxis that is managed by Dr Smiley COVID-19 negative on 06/18/19 Plan: * I had a long and detailed discussion with her regarding her CV issues * Her presentation appears to have been due to a combination of lower resp tract infection and decomp CHF. CHF is now likely diastolic since most recent EF showed preserved LV funciton * Management of lower resp tract infection is with the Med Svce * Continue previous card regimen. Continue OAC d/t chronic a-fib. Continue Plavix - d/t known CAD. Continue diuretics because of h/o CHF * Close outpt f/u advised JOSE MEREDITH MD FACP FAC CCDS Jun 21, 2019 13:22
[2019-06-21] MEDS: RIVAROXABAN 20 MG TABLET (XARELTO) PO SCH (16:17)
--- NOTE | 2019-06-21 21:19 | NUR ---
This RN notified [facility] that patient is willing to wear her BiPAP but states it "makes me anxious". Pt requesting something to help her anxiety. No new orders received at this time.
--- NOTE | 2019-06-21 21:40 | NUR ---
This RN notified Dr. Craig that patient is willing to wear her BiPAP but states "it makes me anxious" and is requesting something for anxiety. New order received at this time. See order hx.
[2019-06-21] MEDS: ALPRAZolam 0.25 MG (XANAX) TAB PO PRN (22:03)
[2019-06-22] VITALS (16 sets, daily range): BP systolic 103–143; BP diastolic 67–103
[2019-06-22 03:18] LABS: BASOPHILS % (AUTO) 0 % (0-10); EOSINOPHILS # (AUTO) 0.5 10^3/uL (0.0-0.3); EOSINOPHILS % (AUTO) 4 % (0-10); HEMATOCRIT 39 % (35-52); HEMOGLOBIN 12.7 G/DL (11.5-16.0); LYMPHOCYTES # (AUTO) 2.1 X 10^3 (1.0-4.0); LYMPHOCYTES % (AUTO) 18 % (12-44); MEAN CORPUSCULAR HEMOGLOBIN 30 PG (25-34); MEAN CORPUSCULAR HGB CONC 33 G/DL (32-36); MEAN CORPUSCULAR VOLUME 91 FL (80-99); MEAN PLATELET VOLUME 10.4 FL (7.4-10.4); MONOCYTES # (AUTO) 1.2 X 10^3 (0.0-1.0); MONOCYTES % (AUTO) 10 % (0-12); NEUTROPHILS # (AUTO) 7.9 X 10^3 (1.8-7.8); NEUTROPHILS % (AUTO) 67 % (42-75); PLATELET COUNT 206 10^3/uL (130-400); WHITE BLOOD COUNT 11.7 10^3/uL (4.3-11.0)
[2019-06-22 03:36] LABS: ALANINE AMINOTRANSFERASE 21 U/L (0-55); ALBUMIN 3.1 GM/DL (3.2-4.5); ALKALINE PHOSPHATASE 92 U/L (40-136); BILIRUBIN,TOTAL 0.6 MG/DL (0.1-1.0); BUN/CREATININE RATIO 24; CARBON DIOXIDE 20 MMOL/L (21-32); CHLORIDE 103 MMOL/L (98-107); CREATININE SERUM 0.91 MG/DL (0.60-1.30); GFR ESTIMATED > 60; GLUCOSE 171 MG/DL (70-105); MAGNESIUM 1.8 MG/DL (1.6-2.4); PHOSPHORUS 3.1 MG/DL (2.3-4.7); POTASSIUM 3.6 MMOL/L (3.6-5.0); SODIUM 136 MMOL/L (135-145)
[2019-06-22] MEDS: KCL 20 MEQ TAB (K-DUR) PO SCH (04:31)
[2019-06-22] MEDS: MAGNESIUM 1 GM/100 ML IVPB 100 ML IV SCH (04:31)
[2019-06-22] MEDS: POTASSIUM CL 10MEQ/50ML IVPB 50 ML IV SCH (04:31)
[2019-06-22 04:59] LABS: ABG BASE EXCESS 1.8 MMOL/L (-2.5-2.5); ABG OXYGEN SATURATION 99 % (94-100); ABG PCO2 37 MMHG (35-45); ABG PH 7.46 (7.37-7.43); ABG PO2 107 MMHG (79-93); ABG TCO2 26.6 MMOL/L (21.0-31.0)
[2019-06-22 05:05] LABS: ALLENS TEST YES-POS; INSPIRED O2 40%; PATIENT TEMP 36.8; VENTILATOR NO
[2019-06-22] MEDS: inSUlin ASPART (NovoLOG) 1 UNIT/0.01 ML (CHARGE PER UNIT) SC SCH ×4 (05:26→21:18)
[2019-06-22] MEDS: DOXYCYCLINE 100 MG (VIBRAMYCIN) TABLET PO SCH (06:49)
--- NOTE | 2019-06-22 07:36 | Diagnostic Imaging Report ---
INDICATION: Pulmonary edema. AP view of the chest is obtained. Since examination of one day earlier, mild cardiomegaly persists. Pulmonary vascularity is at the upper limits of normal. Bilateral airspace disease is somewhat improved compared to previous study. No pneumothorax or significant pleural fluid is identified. There is left perihilar atelectasis. IMPRESSION: Left perihilar atelectasis with mild overall improvement in probable edema or pneumonitis in the lungs. Dictated by: Dictated on workstation # [id number]
[2019-06-22] MEDS: meTOproloL SUCCINATE 50 MG (TOPROL XL) TAB PO SCH (07:50)
[2019-06-22] MEDS: ASPIRIN E.C. 81 MG (ECOTRIN) TAB PO SCH (07:50)
[2019-06-22] MEDS: FUROSEMIDE 40 MG/4 ML INJ (LASIX) IVP SCH (07:51)
[2019-06-22] MEDS: PANTOPRAZOLE 40 MG (PROTONIX) TAB PO SCH (07:51)
[2019-06-22] MEDS ORDERED: KCL 20 MEQ TAB (K-DUR) PO ONE (08:00)
--- NOTE | 2019-06-22 09:18 | NUR ---
SPO2 WAS 89% ON ROOM AIR @ REST. PT STOOD UP AND SPO2 DROPPED TO 86%. REPLACED O2 @ 2 LPM. PT WALKED FOR 3 MINUTES IN ROOM AND SPO2 STAYED ABOVE 90% WITH EXERTION. Addendum: 06/22/19 at 0930 by AVEL CROFT RT Amended: Links added.
--- NOTE | 2019-06-22 09:36 | Progress Note - Cardiology ---
Cardiology SOAP Progress Note Subjective: No cp Shortness of breath better, but couldn't come off supple oxygen yesterday No palp or syncope No n/v/d Objective: I&O/Vital Signs 06/21/19 06/21/19 06/21/19 06/21/19 22:00 22:05 23:00 23:00 Pulse 81 74 85 Resp 18 20 B/P (MAP) 119/91 (100) 125/86 (99) Pulse Ox 93 96 98 O2 Delivery Vapotherm NIV Bilevel NIV Bilevel O2 Flow Rate 25.00 40.00 40.00 40.00 40.00 06/22/19 06/22/19 06/22/19 06/22/19 00:00 00:00 01:00 01:00 Pulse 82 79 79 Resp 15 B/P (MAP) 135/95 (108) Pulse Ox 97 93 98 O2 Delivery NIV Bilevel Vapotherm O2 Flow Rate 40.00 25.00 40.00 FiO2 40 06/22/19 06/22/19 06/22/19 06/22/19 01:00 02:00 03:00 04:00 Pulse 79 76 87 83 Resp 28 26 27 19 B/P (MAP) 103/67 (79) 119/68 (85) 117/86 (96) 123/85 (98) Pulse Ox 98 97 94 95 O2 Delivery NIV Bilevel NIV Bilevel NIV Bilevel NIV Bilevel O2 Flow Rate 40.00 40.00 40.00 40.00 06/22/19 06/22/19 06/22/19 06/22/19 04:00 05:00 05:25 06:00 Pulse 93 90 Resp 13 20 B/P (MAP) 129/85 (100) 143/80 (101) Pulse Ox 93 98 O2 Delivery Vapotherm NIV Bilevel Vapotherm Vapotherm O2 Flow Rate 25.00 40.00 25.00 25.00 40.00 40.00 FiO2 40 06/22/19 06/22/19 06/22/19 06/22/19 06:59 07:00 07:00 07:01 Pulse 90 94 Resp 9 B/P (MAP) 138/103 (115) Pulse Ox 94 O2 Delivery High Flow N/C High Flow N/C High Flow N/C O2 Flow Rate 10.00 10.00 6.00 3/06/22/19 06/22/19 06/22/19 07:57 08:00 08:14 08:14 Temp 36.6 Pulse 87 Resp 20 B/P (MAP) 109/83 (92) Pulse Ox 95 95 O2 Delivery High Flow N/C High Flow N/C High Flow N/C O2 Flow Rate 4.00 4.00 3.00 06/22/19 06/22/19 06/22/19 08:20 09:00 09:18 Pulse 84 Resp 17 B/P (MAP) 128/88 (101) Pulse Ox 90 95 O2 Delivery High Flow N/C High Flow N/C O2 Flow Rate 2.00 2.00 2.00 06/22/19 00:00 Intake Total 2450 ml Output Total 1325 ml Balance 1125 ml Weight (Pounds): 307 Weight (Ounces): 0.0 Weight (Calculated Kilograms): 139.195036 Constitutional: AAO x 3, well-developed, well-nourished Respiratory: No accessory muscle use, No respiratory distress; chest expansion is symmetric, chest is bilaterally symmetric, other (good bilat air entry) Cardiovascular: irregularly irregular; No JVD; S1 and S2 Gastrointestional: No tender; round; No guarding, No rebound; audible bowel sounds Extremities: No clubbing, No cyanosis, No significant edema Neurologic/Psychiatric: oriented x 3, other (moves all limbs equally) Skin: No rash on exposed areas, No ulcerations on exposed areas Results/Procedures: Labs Laboratory Tests 06/21/19 11:01: Glucometer 209H 06/21/19 15:23: Glucometer 150H 06/21/19 19:17: Glucometer 222H 06/22/19 02:53: White Blood Count 11.7H, Red Blood Count 4.24L, Hemoglobin 12.7, Hematocrit 39, Mean Corpuscular Volume 91, Mean Corpuscular Hemoglobin 30, Mean Corpuscular Hemoglobin Concent 33, Red Cell Distribution Width 14.0, Platelet Count 206, Mean Platelet Volume 10.4, Neutrophils (%) (Auto) 67, Lymphocytes (%) (Auto) 18, Monocytes (%) (Auto) 10, Eosinophils (%) (Auto) 4, Basophils (%) (Auto) 0, Neutrophils # (Auto) 7.9H, Lymphocytes # (Auto) 2.1, Monocytes # (Auto) 1.2H, Eosinophils # (Auto) 0.5H, Basophils # (Auto) 0.0, Sodium Level 136, Potassium Level 3.6, Chloride Level 103, Carbon Dioxide Level 20L, Anion Gap 13, Blood Urea Nitrogen 22H, Creatinine 0.91, Estimat Glomerular Filtration Rate > 60, BUN/Creatinine Ratio 24, Glucose Level 171H, Calcium Level 9.0, Corrected Calcium 9.7, Phosphorus Level 3.1, Magnesium Level 1.8, Total Bilirubin 0.6, Aspartate Amino Transf (AST/SGOT) 16, Alanine Aminotransferase (ALT/SGPT) 21, Alkaline Phosphatase 92, Total Protein 7.0, Albumin 3.1L 06/22/19 04:50: Blood Gas Puncture Site LEFT RADIAL, Blood Gas Patient Temperature 36.8, Arterial Blood pH 7.46H, Arterial Blood Partial Pressure CO2 37, Arterial Blood Partial Pressure O2 107H, Arterial Blood HCO3 26, Arterial Blood Total CO2 26.6, Arterial Blood Oxygen Saturation 99, Arterial Blood Base Excess 1.8, Dontae Test YES-POS, Blood Gas Ventilator Setting NO, Blood Gas Inspired Oxygen 40% Microbiology 06/18/19 MRSA Screen - Final, Complete MRSA not isolated Laboratory Tests 06/21/19 03:50 06/22/19 02:53 A/P: Assessment: Shortness of breath due to pneumonia and CHF Acute on chronic diastolic CHF, improved. LVEF 52% on MPI of May 2019 Cardiac cath of December 2016: 80% mid vessel stenosis in the LAD which was stented with an Alpine Xience 3.0mm x 18 mm stent. The distal LAD is occluded. The left Cx artery had diffuse mild to mod disease. The RCA has mod prox and mid vessel disease and severe distal disease and is collateralized from the left coronary system. LVEF 35-40%. anterolateral, apical and diaphragmatic hypokinesis of the LV. Elevated LVEDP. Mild MR Type 2 [place] during this hosp of June 2019, likely secondary to hypoxia d/t pneumonia/CHF Echo of September 2018 LVEF 50-55%. LA is mod to severely dilated. Mod MR. RVSP approx 22 mmHg Chronic A Fib, first diagnosed on an ECG of 11/13/16. 24 Hour Holter of July 09, 2017 showed a-fib with an average HR of 72 bpm. Isolated PVC's. No VT. No signif marly MPI of May 13, 2019: Cardiomegaly. Well preserved global left ventricular systolic function with ejection fraction of 52%. No distinct evidence of myocardial ischemia or infarction. Hypertension Hyperlipidemia Diabetes mellitus, followed and managed by primary care physician CKD-2 Obstructive sleep apnea, followed by Dr. Mcintosh DM II H/o epistaxis that is managed by Dr Sherice CAMPA-19 negative on 06/18/19 Plan: * As documented in my previous note and as note below * Her presentation appears to have been due to a combination of lower resp tract infection and decomp CHF. CHF is now likely diastolic since most recent EF showed preserved LV funciton * Management of lower resp tract infection is with the Med Svce * Continue previous card regimen. Continue OAC d/t chronic a-fib. Continue Plavix - d/t known CAD. Continue diuretics because of h/o CHF * Close outpt f/u advised * I again discussed with her her CV issues and their management JOSE MEREDITH MD FACP FAC CCDS Jun 22, 2019 09:36
--- NOTE | 2019-06-22 11:11 | NUR ---
PT TRANSFERRED TO [facility] VIA W/ STAFF AND PERSONAL BELONGINGS. REPORT GIVEN TO ADITHYA STONE, NO QUESTIONS/CONCERNS VOICED.
--- NOTE | 2019-06-22 11:12 | NUR ---
PT TRANSFERRED FROM ICU TO ROOM 419. A/O X4. ORIENTED PT TO ROOM/CALL LIGHT. PT DENIES ANY NEEDS AT THIS TIME.
--- NOTE | 2019-06-22 12:23 | Progress Note - Hospitalist ---
Subjective HPI/CC On Admission Date Seen by Provider: Jun 22, 2019 Time Seen by Provider: 08:50 Abi Barnes is a 53-year-old female with past medical history of hypertension, diabetes, coronary artery disease, hyperlipidemia, atrial fibrillation, heart failure, who presented with shortness of breath. She was initially admitted to the [facility]. While she was there she had fever and shortness of breath. She was requiring high levels of oxygen which she does not usually require a baseline. She reports that she had a cough a few weeks ago but it denies any now. She reports having chest pain whenever she came in but denies any at this time. She denies any nausea or vomiting. She denies any abdominal pain. She denies any recent travel. 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 She does not know of any sick contacts. Subjective/Events-last exam she has no complaints or concerns. She denies any shortness of breath. She denies any chest pain. She denies any fevers or chills. She denies any cough. She denies any nausea or vomiting. She denies any abdominal pain. Objective Exam Vital Signs Vital Signs Date Time Temp Pulse Resp B/P (MAP) Pulse Ox O2 Delivery O2 Flow Rate FiO2 06/22/19 12:00 37.4 87 16 123/78 (93) 92 High Flow N/C 2.00 06/22/19 06:59 40 Capillary Refill : Less Than 3 Seconds General Appearance: No Apparent Distress, Obese Respiratory: Lungs Clear, Normal Breath Sounds, No Respiratory Distress, Other (wearing nasal cannula) Cardiovascular: Regular Rate, Rhythm, No Murmur Gastrointestinal: Normal Bowel Sounds, Non Tender, Soft Extremity: Normal Inspection, Non Tender, Pedal Edema Neurologic/Psychiatric: Alert, Oriented x3, No Motor/Sensory Deficits, Normal Mood/Affect Skin: Normal Color, Warm/Dry Results/Procedures Lab Laboratory Tests 06/22/19 02:53 Patient resulted labs reviewed. Imaging: Reviewed Imaging Report Assessment/Plan Assessment and Plan Assess & Plan/Chief Complaint acute hypoxic respiratory failure acute on chronic heart failure with reduced ejection fraction NSTEMI, type 2 Procalcitonin negative 2 discontinue doxycycline Respiratory viral panel negative Influenza testing negative COVID negative troponin elevated on admission Cardiology consulted, appreciate assistance Continue Lasix wean oxygen as able NEREIDA BiPAP at night hypertension Coronary artery disease Hyperlipidemia Persistent atrial fibrillation Continue home meds Type II diabetes mellitus Sliding scale insulin DVT prophylaxis: Already receiving therapeutic anticoagulation Diagnosis/Problems Diagnosis/Problems (1) Acute respiratory failure with hypoxia Status: Acute (2) CHF (congestive heart failure) Status: Acute Qualifiers: Heart failure type: systolic Heart failure chronicity: acute on chronic Qualified Codes: I50.23 - Acute on chronic systolic (congestive) heart failure Clinical Quality Measures DVT/VTE Risk/Contraindication: Risk Factor Score Per Nursin RFS Level Per Nursing on Admit: 3=High MEIR CORBIN MD Jun 22, 2019 12:23
[2019-06-22] MEDS: RIVAROXABAN 20 MG TABLET (XARELTO) PO SCH (17:22)
[2019-06-22] MEDS: ALPRAZolam 0.25 MG (XANAX) TAB PO PRN (22:25)
[2019-06-23 00:03] VITALS: BP 121/72
[2019-06-23 04:00] VITALS: BP 148/91
[2019-06-23 05:55] LABS: CALCIUM 9.8 MG/DL (8.5-10.1); CREATININE SERUM 1.05 MG/DL (0.60-1.30)
[2019-06-23] MEDS: inSUlin ASPART (NovoLOG) 1 UNIT/0.01 ML (CHARGE PER UNIT) SC SCH ×2 (06:06→11:33)
[2019-06-23 07:26] VITALS: BP 151/96
[2019-06-23] MEDS ORDERED: CLOPIDOGREL 75 MG (PLAVIX) TABLET PO SCH (09:00)
[2019-06-23] MEDS: meTOproloL SUCCINATE 50 MG (TOPROL XL) TAB PO SCH (09:03)
[2019-06-23] MEDS: FUROSEMIDE 40 MG/4 ML INJ (LASIX) IVP SCH ×2 (09:03→10:00)
[2019-06-23] MEDS: PANTOPRAZOLE 40 MG (PROTONIX) TAB PO SCH (09:03)
--- NOTE | 2019-06-23 11:37 | Discharge Inst-Simple/Standard ---
Discharge Inst-Standard Reconcile Patient Problems Problems Reviewed?: Yes Discharge Medications New, Converted or Re-Newed RX: Transmitted to Pharmacy Patient Instructions/Follow Up Plan of Care/Instructions/FU: Please continue to take youre medications as written. Please follow up with your primary care doctor in the next week to follow up this hospital stay. Activity as Tolerated: Yes Discharge Diet: Cardiac Diet Return to The Hospital For: Chest pain, shortness of breath, fever, confusion, if you feel you are getting worse. Planned Outpatient Orders/Ref. Pneu Vac Indicated: Yes STEPHANE GOINS MD Jun 23, 2019 11:35
--- NOTE | 2019-06-23 12:25 | Progress Note - Cardiology ---
Cardiology SOAP Progress Note Subjective: Feels better today No cp or palp or syncope or shortness of breath No n/v/d Wishes to go home Objective: I&O/Vital Signs 06/23/19 06/23/19 06/23/19 06/23/19 04:00 07:26 09:02 09:24 Temp 35.6 36.8 Pulse 80 88 Resp 20 20 B/P (MAP) 148/91 (110) 151/96 (114) Pulse Ox 96 96 95 O2 Delivery Nasal Cannula High Flow N/C Nasal Cannula O2 Flow Rate 1.00 1.50 1.00 1.00 06/23/19 09:52 O2 Delivery Nasal Cannula O2 Flow Rate 2.00 06/23/19 00:00 Intake Total 1680 ml Output Total 3 ml Balance 1677 ml Weight (Pounds): 307 Weight (Ounces): 0.0 Weight (Calculated Kilograms): 139.222431 Constitutional: AAO x 3, well-developed, well-nourished Respiratory: No accessory muscle use, No respiratory distress; chest expansion is symmetric, chest is bilaterally symmetric, other (good bilat air entry) Cardiovascular: irregularly irregular; No JVD; S1 and S2 Gastrointestional: No tender; round; No guarding, No rebound; audible bowel sounds Extremities: No clubbing, No cyanosis, No significant edema Neurologic/Psychiatric: oriented x 3, other (moves all limbs equally) Skin: No rash on exposed areas, No ulcerations on exposed areas Results/Procedures: Labs Laboratory Tests 06/22/19 15:34: Glucometer 179H 06/22/19 21:03: Glucometer 170H 06/23/19 05:05: Sodium Level 139, Potassium Level 4.0, Chloride Level 104, Carbon Dioxide Level 24, Anion Gap 11, Blood Urea Nitrogen 23H, Creatinine 1.05, Estimat Glomerular Filtration Rate 55, BUN/Creatinine Ratio 22, Glucose Level 173H, Calcium Level 9.8 06/23/19 10:56: Glucometer 244H Microbiology 06/18/19 MRSA Screen - Final, Complete MRSA not isolated Laboratory Tests 06/22/19 02:53 06/23/19 05:05 A/P: Assessment: Shortness of breath due to pneumonia and CHF, improved Acute on chronic diastolic CHF, improved. LVEF 52% on MPI of May 2019 Cardiac cath of December 2016: 80% mid vessel stenosis in the LAD which was stented with an Alpine Xience 3.0mm x 18 mm stent. The distal LAD is occluded. The left Cx artery had diffuse mild to mod disease. The RCA has mod prox and mid vessel disease and severe distal disease and is collateralized from the left coronary system. LVEF 35-40%. anterolateral, apical and diaphragmatic hypokinesis of the LV. Elevated LVEDP. Mild MR Type 2 [place] during this hosp of June 2019, likely secondary to hypoxia d/t pneumonia/CHF Echo of September 2018 LVEF 50-55%. LA is mod to severely dilated. Mod MR. RVSP approx 22 mmHg Chronic A Fib, first diagnosed on an ECG of 11/13/16. 24 Hour Holter of July 09, 2017 showed a-fib with an average HR of 72 bpm. Isolated PVC's. No VT. No signif marly MPI of May 13, 2019: Cardiomegaly. Well preserved global left ventricular systolic function with ejection fraction of 52%. No distinct evidence of myocardial ischemia or infarction. Hypertension Hyperlipidemia Diabetes mellitus, followed and managed by primary care physician CKD-2 Obstructive sleep apnea, followed by Dr. Mcintosh DM II H/o epistaxis that is managed by Dr Sherice FOSTERID-19 negative on 06/18/19 Plan: * Continue previous card regimen. Continue OAC d/t chronic a-fib. Continue Plavix - d/t known CAD. Continue diuretics because of h/o CHF * Close outpt f/u advised * I again discussed with her her CV issues and their management JOSE MEREDITH MD FACP FAC CCD Jun 23, 2019 12:25
--- NOTE | 2019-06-23 14:08 | Discharge Summary ---
Diagnosis/Chief Complaint Date of Admission Jun 18, 2019 at 20:58 Date of Discharge Discharge Date: Jun 23, 2019 Admission Diagnosis acute respiratory failure with hypoxia Primary Care Ramandeep Smith MD Discharge Diagnosis (1) Acute respiratory failure with hypoxia Status: Acute (2) CHF (congestive heart failure) Status: Acute Discharge Summary Discharge Physical Exam Allergies: Coded Allergies: No Known Drug Allergies (Unverified , 02/12/17) Vitals & I&Os Vital Signs Date Time Temp Pulse Resp B/P (MAP) Pulse Ox O2 Delivery O2 Flow Rate FiO2 06/23/19 09:52 Nasal Cannula 2.00 06/23/19 09:24 95 06/23/19 07:26 36.8 88 20 151/96 (114) 06/22/19 06:59 40 Hospital Course Labs (last 24 hrs) Laboratory Tests 06/22/19 15:34: Glucometer 179H 06/22/19 21:03: Glucometer 170H 06/23/19 05:05: Sodium Level 139, Potassium Level 4.0, Chloride Level 104, Carbon Dioxide Level 24, Anion Gap 11, Blood Urea Nitrogen 23H, Creatinine 1.05, Estimat Glomerular Filtration Rate 55, BUN/Creatinine Ratio 22, Glucose Level 173H, Calcium Level 9.8 06/23/19 10:56: Glucometer 244H Microbiology 06/18/19 MRSA Screen - Final, Complete MRSA not isolated Patient resulted labs reviewed. Pending Labs Laboratory Tests 06/23/19 10:56: Glucometer 244 Imaging: Reviewed Imaging Report Discharge Home Medications: Active Scripts Active Reported Amlodipine Besylate 5 Mg Tablet 5 Mg PO DAILY Tresiba Flextouch U-100 (Insulin Degludec) 100 Unit/1 Ml Insuln.pen 10 Units SC DAILY Digoxin 250 Mcg Tablet 250 Mcg PO DAILY K-Tab ER (Potassium Chloride) 10 Meq Tablet.er 10 Meq PO DAILY Olmesartan Medoxomil 40 Mg Tablet 40 Mg PO DAILY Metformin HCl 1,000 Mg Tablet 1,000 Mg PO BID Plavix (Clopidogrel Bisulfate) 75 Mg Tablet 75 Mg PO DAILY Metoprolol Succinate 50 Mg Tab.er.24h 50 Mg PO DAILY Lasix (Furosemide) 40 Mg Tablet 40 Mg PO DAILY Multi-Vitamin Daily (Multivitamin) 1 Each Tablet 1 Each PO DAILY Magnesium Oxide 400 Mg Tablet 400 Mg PO DAILY Fish Oil 1,200 mg Fish Oil (Fish Oil/Dha/Epa) 1 Each Capsule 1,200 Mg PO HS Xarelto Tablet (Rivaroxaban) 20 Mg Tablet 20 Mg PO HS Pravastatin Sodium 40 Mg Tablet 40 Mg PO HS Januvia (Sitagliptin Phosphate) 100 Mg Tablet 100 Mg PO DAILY Instructions to patient/family Please see electronic discharge instructions given to patient. Clinical Quality Measures DVT/VTE Risk/Contraindication: Risk Factor Score Per Nursin RFS Level Per Nursing on Admit: 3=High Problem Qualifiers (1) CHF (congestive heart failure): Heart failure type: systolic Heart failure chronicity: acute on chronic Qualified Codes: I50.23 - Acute on chronic systolic (congestive) heart failure STEPHANE GOINS MD Jun 23, 2019 14:08
--- NOTE | 2019-06-23 14:21 | NUR ---
CM/SS: Visited with pt as to plan for discharge Plan: Pt will return home with home oxygen set up Summary: Pt report she is feeling better and would like to be able to go home. Pt is aware that she will need oxygen and she reports she would like to order it from [facility]. She reports needing it with activity, and while sitting still she does not need the oxygen. Pt reports her family will pick her up. Information is faxed to [facility] [phone], they will reach out to the pt and determine when the oxygen will be delivered. Family will garbage pick up worker portable and bring with them when they garbage pick up worker pt. Other arrangements will be coordinated with home medical company and pt.
[2019-06-23 15:00] VITALS: BP 151/96
== END 2019-06-23 15:00 | disposition home or self-care (01) | DRG 189 ==
LOC: ICU 20:58 → 4TH 06-22 11:11
PROVIDERS: ADMIT Internal Medicine; ATTEND Internal Medicine
DX: J96.01 Acute respiratory failure with hypoxia (principal); I13.0 Hypertensive heart and chronic kidney disease with heart failure and stage 1 through stage 4 chronic kidney disease, or unspecified chronic kidney disease; I50.33 Acute on chronic diastolic (congestive) heart failure; J18.9 Pneumonia, unspecified organism; I21.A1 Myocardial infarction type 2; N18.2 Chronic kidney disease, stage 2 (mild); I48.19 Other persistent atrial fibrillation; I25.5 Ischemic cardiomyopathy; I25.10 Atherosclerotic heart disease of native coronary artery without angina pectoris; E11.9 Type 2 diabetes mellitus without complications; E78.5 Hyperlipidemia, unspecified; G47.33 Obstructive sleep apnea (adult) (pediatric); Z79.01 Long term (current) use of anticoagulants; Z79.84 Long term (current) use of oral hypoglycemic drugs
CPT/HCPCS: 36415; 71045; 80048; 80053; 82805; 82962; 83605; 83735; 83880; 84100; 84145; 84484; 85007; 85025; 85027; 85610; 87081; 87631; 87635; 93005; 94640; 94660; 94760; 94761

== ENCOUNTER → 2019-06-18 | Outpatient (CLI) | payer OTHER, BC ==
[~2019-06-18] MED LIST changes: +AMLO5TAB9 PO; -CATHETER FLUSH 10 ML SYR IV PRN; +CLOP75TA69 PO; +DIGO250T3 PO; +FURO-124 PO; +INSU100I32 SC; +METO50TA7 PO; +MULT-974 PO; +OLME40TA18 PO; +POTA10TA PO; -REGADENOSON 0.4 MG/5 ML SYR (LEXISCAN) IV ONE
== END ==
LOC: LABNPT 08:31
PROVIDERS: ATTEND Nurse Practitioner Family
DX: Z01.89 Encounter for other specified special examinations (principal)
CPT/HCPCS: 84145

== ENCOUNTER → 2020-03-19 | Outpatient (CLI) | payer BC ==
[~2020-03-19] MED LIST changes: +AMLO-250 PO; +CLOP75TA69 PO; +DIGO250T3 PO; +FURO-124 PO; +INSU100I32 SC; +METO50TA7 PO; +MULT-974 PO; +OLME40TA18 PO; +POTA10TA PO
--- NOTE | 2020-03-19 11:04 | Diagnostic Imaging Report ---
INDICATION: Routine screening. Comparison is made with prior mammogram from 03/13/2018 and 08/23/2016. 2-D and 3-D bilateral screening mammography was performed with CAD. Scattered fibroglandular densities are identified bilaterally. The parenchymal pattern is stable. No mass or malignant appearing microcalcifications are seen. Axillae are unremarkable. IMPRESSION: BI-RADS Category 1 No mammographic features suspicious for malignancy are parenchymal pattern ACR BI-RADS Category 1: Negative. Result letter will be mailed to the patient. Note: At least 10% of breast cancer is not imaged by mammography. Dictated by: Dictated on workstation # [id number]
== END ==
LOC: RAD 08:22
PROVIDERS: ATTEND Obstetrics & Gynecology
DX: Z12.31 Encounter for screening mammogram for malignant neoplasm of breast (principal)
CPT/HCPCS: 77063; 77067

== ENCOUNTER 2021-08-21 04:33 | Inpatient (IN) | payer BC ==
[~2021-08-21] VITALS: Ht 167.7 cm; Wt 126.7 kg
[~2021-08-21 04:33] MED LIST changes: -MAGN400T8 PO; +MGX400T PO; +POTA-160 PO; -POTA10TA6 PO
--- NOTE | 2021-08-21 04:46 | ED Chest Pain ---
General Stated Complaint: CP,SOA,L SIDE PAIN Source: patient Exam Limitations: no limitations History of Present Illness Date Seen by Provider: August 21, 2021 Time Seen by Provider: 04:35 Initial Comments Patient is a 55-year-old female who presents to the emergency department with a chief complaint of left-sided chest "heaviness" that radiates to the inner upper left arm. Shortness of breath, nausea. Patient states she woke up with symptoms at about 2:00 this morning out of the blue. She has a history of coronary artery disease with stenting in 2017. Brief review of the medical record shows the patient has a history of extensive coronary artery disease with a prior stent, cardiomyopathy with prior history of 35 to 40% EF most recently in the low 50s. Patient also has a history of atrial fibrillation anticoagulated on Xarelto. She also takes Plavix. She is not on baby aspirin. She denies any recent illnesses such as fevers, chills, cough or congestion. No COVID concerns. She is fully vaccinated. No significant swelling in her lower extremities but she states may be a little bit today. 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 She does mention that last week she had a few episodes of some left arm pain - but didnt think anything of it. No smoking history. She states she is compliant with her daily medications. Getting up and moving around made the chest heaviness worse. She rates it currently at a "6". All other review of systems reviewed and negative except as stated. Timing/Duration: 1-3 hours (2hr) Severity/Quality: moderate, pressure (heaviness) Location: other (Left anterior chest) Radiation: arms (Left arm) Activities at Onset: sleep Prior CP/Workup: cardiac cath, heart attack Modifying Factors: worse with lying down ASA po LABOR DELIVERY RN: No NTG SL LABOR DELIVERY RN: No Associated Symptoms: nausea/vomiting, shortness of breath Allergies and Home Medications Allergies Coded Allergies: No Known Drug Allergies (Unverified , 02/12/17) Patient Home Medication List Home Medication List Reviewed: Yes Amlodipine Besylate (Amlodipine Besylate) 5 Mg Tablet, 10 MG PO DAILY, (Reported) Entered as Reported by: OSCAR DOMINIQUE on 06/19/19 1350 Last Action: Edited Clopidogrel Bisulfate (Plavix) 75 Mg Tablet, 75 MG PO DAILY, (Reported) Entered as Reported by: OSCAR DOMINIQUE on 06/19/191344 Last Action: Reviewed Digoxin (Digoxin) 250 Mcg Tablet, 125 MCG PO DAILY, (Reported) Entered as Reported by: OSCAR DOMINIQUE on 06/19/191344 Last Action: Edited Fish Oil/Dha/Epa (Fish Oil 1,200 mg Fish Oil) 1 Each Capsule, 1,200 MG PO HS, (Reported) Entered as Reported by: ROSALINDA THURMAN on 12/05/16822 Last Action: Reviewed Furosemide (Lasix) 40 Mg Tablet, 40 MG PO DAILY, (Reported) Entered as Reported by: OSCAR DOMINIQUE on 06/19/191344 Last Action: Reviewed Insulin Degludec (Tresiba Flextouch U-100) 100 Unit/1 Ml Insuln.pen, 10 UNITS SC DAILY, (Reported) Entered as Reported by: OSCAR DOMINIQUE on 06/19/191344 Last Action: Reviewed Magnesium Oxide (Magnesium Oxide) 400 Mg Tablet, 400 MG PO DAILY, (Reported) Entered as Reported by: WILL ZENDEJAS on 02/12/171134 Last Action: Reviewed Metformin HCl (Metformin HCl) 1,000 Mg Tablet, 1,000 MG PO BID, (Reported) Entered as Reported by: OSCAR DOMINIQUE on 06/19/191344 Last Action: Reviewed Metoprolol Succinate (Metoprolol Succinate) 50 Mg Tab.er.24h, 50 MG PO DAILY, (Reported) Entered as Reported by: OSCAR DOMINIQUE on 06/19/191344 Last Action: Reviewed Multivitamin (Multi-Vitamin Daily) 1 Each Tablet, 1 EACH PO DAILY, (Reported) Entered as Reported by: OSCAR DOMINIQUE on 06/19/191344 Last Action: Reviewed Olmesartan Medoxomil (Olmesartan Medoxomil) 40 Mg Tablet, 40 MG PO DAILY, (Reported) Entered as Reported by: OSCAR DOMINIQUE on 06/19/191344 Last Action: Reviewed Potassium Chloride (K-Tab ER) 10 Meq Tablet.er, 10 MEQ PO DAILY, (Reported) Entered as Reported by: OSCAR DOMINIQUE on 06/19/191344 Last Action: Reviewed Pravastatin Sodium (Pravastatin Sodium) 40 Mg Tablet, 40 MG PO HS, (Reported) Entered as Reported by: ROSALINDA THURMAN on 12/05/16822 Last Action: Reviewed Rivaroxaban (Xarelto Tablet) 20 Mg Tablet, 20 MG PO HS, (Reported) Entered as Reported by: ROSALINDA THURMAN on 12/05/16822 Last Action: Reviewed Discontinued Medications Sitagliptin Phosphate (Januvia) 100 Mg Tablet, 100 MG PO DAILY, (Reported) Discontinued Reason: No Longer Taking Entered as Reported by: ROSALINDA THURMAN on 12/05/16822 Last Action: Discontinued Review of Systems Review of Systems Constitutional: see HPI EENTM: No Symptoms Reported Respiratory: SOA With Exertion, SOA at Rest Cardiovascular: Chest Pain Gastrointestinal: Nausea Genitourinary: No Symptoms Reported Musculoskeletal: no symptoms reported Skin: no symptoms reported Psychiatric/Neurological: No Symptoms Reported All Other Systems Reviewed Negative Unless Noted: Yes Past Mlnwigv-Eeirmv-Dgmknn Hx Immunizations Up To Date Tetanus Booster (TDap): Unknown PED Vaccines UTD: No Seasonal Allergies Seasonal Allergies: No Past Medical History Sleep Apnea Currently Using CPAP: Yes Atrial Fibrillation, Coronary Artery Disease, High Cholesterol, Hypertension Reproductive Disorders: Yes (DUB) Female Reproductive Disorders: Menstrual Problems Sexually Transmitted Disease: No HIV/AIDS: No Loss of Vision: Bilateral Hearing Impairment: Denies Adverse Reaction/Blood Tranf: No Physical Exam Vital Signs Vital Signs - First Documented 08/21/21 08/21/21 04:38 04:59 Temp 36.9 Pulse 106 Resp 32 B/P (MAP) 160/107 (124) Pulse Ox 72 O2 Delivery Room Air O2 Flow Rate 40.00 FiO2 100 Capillary Refill : Height, Weight, BMI Height: 5'6.00" Weight: 307lbs. 0.0oz. 139.311767jd; 50.68 BMI Method: General Appearance: WD/WN, Anxious, Mild Distress HEENT: PERRL/EOMI Neck: Normal Inspection Respiratory: No Accessory Muscle Use, No Respiratory Distress, Crackles (Coarse crackles throughout, patient is noted to be in the low 70s, room air saturations), Other (speaking in complete sentences; exhibiting no signs of significant respiratory distress - RA sats initially in the 70's) Cardiovascular: Normal Peripheral Pulses, Irregularly Irregular, Tachycardia, Other (1+ bilateral LE edema) Gastrointestinal: Non Tender, Soft Extremity: Normal Range of Motion, Pedal Edema Neurologic/Psychiatric: Alert, Oriented x3, No Motor/Sensory Deficits, Normal Mood/Affect, jack spinner II-XII Norm as Tested Skin: Normal Color, Warm/Dry Critical Care Note Critical Care Start Time: 04:35 Stop Time: 05:45 Total Time (minutes) 40 minutes critical care time in the evaluation and management of this patient with profound hypoxia and chest pain. TIme includes supplementation of oxygen with nasal cannula, to oxymask, to Vapotherm. eval of EKG and labs and CXR; review of medical record and old ekgs, cards notes. discussion with web weaver Progress/Results/Core Measures Results/Orders Lab Results Laboratory Tests Test 08/21/21 04:49 08/21/21 05:19 Range/Units White Blood Count 15.3 H 4.3-11.0 10^3/uL Red Blood Count 5.18 H 3.80-5.11 10^6/uL Hemoglobin 15.5 11.5-16.0 g/dL Hematocrit 48 35-52 % Mean Corpuscular Volume 93 80-99 fL Mean Corpuscular Hemoglobin 30 25-34 pg Mean Corpuscular Hemoglobin Concent 32 32-36 g/dL Red Cell Distribution Width 13.9 10.0-14.5 % Platelet Count 285 130-400 10^3/uL Mean Platelet Volume 10.0 9.0-12.2 fL Immature Granulocyte % (Auto) 0 % Neutrophils (%) (Auto) 79 H 42-75 % Lymphocytes (%) (Auto) 12 12-44 % Monocytes (%) (Auto) 7 0-12 % Eosinophils (%) (Auto) 1 0-10 % Basophils (%) (Auto) 1 0-10 % Neutrophils # (Auto) 12.0 H 1.8-7.8 10^3/uL Lymphocytes # (Auto) 1.9 1.0-4.0 10^3/uL Monocytes # (Auto) 1.1 H 0.0-1.0 10^3/uL Eosinophils # (Auto) 0.2 0.0-0.3 10^3/uL Basophils # (Auto) 0.1 0.0-0.1 10^3/uL Immature Granulocyte # (Auto) 0.1 0.0-0.1 10^3/uL Neutrophils % (Manual) 81 % Lymphocytes % (Manual) 13 % Monocytes % (Manual) 5 % Eosinophils % (Manual) 0 % Basophils % (Manual) 0 % Band Neutrophils 1 % Polychromasia SLIGHT Anisocytosis SLIGHT Prothrombin Time 21.1 H 12.2-14.7 SEC INR Comment 1.8 H 0.8-1.4 Activated Partial Thromboplast Time 49 H 24-35 SEC D-Dimer 0.38 0.00-0.49 UG/ML Sodium Level 140 135-145 MMOL/L Potassium Level 4.2 3.6-5.0 MMOL/L Chloride Level 105 98-107 MMOL/L Carbon Dioxide Level 19 L 21-32 MMOL/L Anion Gap 16 H 5-14 MMOL/L Blood Urea Nitrogen 13 7-18 MG/DL Creatinine 1.06 0.60-1.30 MG/DL Estimat Glomerular Filtration Rate 62 BUN/Creatinine Ratio 12 Glucose Level 234 H 70-105 MG/DL Calcium Level 10.3 H 8.5-10.1 MG/DL Corrected Calcium 10.1 8.5-10.1 MG/DL Magnesium Level 1.8 1.6-2.4 MG/DL Total Bilirubin 0.7 0.1-1.0 MG/DL Aspartate Amino Transf (AST/SGOT) 15 5-34 U/L Alanine Aminotransferase (ALT/SGPT) 22 0-55 U/L Alkaline Phosphatase 99 40-136 U/L Myoglobin 77.7 10.0-92.0 NG/ML Troponin I 0.048 H <0.028 NG/ML B-Type Natriuretic Peptide 177.4 H <100.0 PG/ML Total Protein 8.5 H 6.4-8.2 GM/DL Albumin 4.3 3.2-4.5 GM/DL Blood Gas Puncture Site LRAD Blood Gas Patient Temperature 36.4 Arterial Blood pH 7.37 7.37-7.43 Arterial Blood Partial Pressure CO2 35 35-45 MMHG Arterial Blood Partial Pressure O2 42 L 79-93 MMHG Arterial Blood HCO3 20 L 23-27 MMOL/L Arterial Blood Total CO2 21.2 21.0-31.0 MMOL/L Arterial Blood Oxygen Saturation 79 L 94-100 % Arterial Blood Base Excess -4.4 L -2.5-2.5 MMOL/L Dontae Test YES-POS Blood Gas Ventilator Setting NO Blood Gas Inspired Oxygen 40 My Orders Orders - SHANICE BARNES MD Cbc With Automated Diff (08/21/21 04:39) Magnesium (08/21/21 04:39) Chest 1 View, Ap/Pa Only (08/21/21 04:39) Ekg Tracing (08/21/21 04:39) Comprehensive Metabolic Panel (08/21/21 04:39) Myoglobin Serum (08/21/21 04:39) Protime With Inr (08/21/21 04:39) Partial Thromboplastin Time (08/21/21 04:39) O2 (08/21/21 04:39) Monitor-Rhythm Ecg Trace Only (08/21/21 04:39) Ed Iv/Invasive Line Start (08/21/21 04:39) Troponin I [place] (08/21/21 04:39) Bnp [place] (08/21/21 04:39) Aspirin Chewable Tablet (Baby Aspirin Ch (08/21/21 05:00) Furosemide Injection (Lasix Injection) (08/21/21 05:00) Manual Differential (08/21/21 04:49) Morphine Injection (Morphine Injection (08/21/21 05:13) Ondansetron Injection (Zofran Injectio (08/21/21 05:15) Arterial Blood Gas (08/21/21 05:24) Furosemide Injection (Lasix Injection) (08/21/21 06:00) Ekg Tracing (08/21/21 05:56) Fibrin Degradation Products (08/21/21 06:10) Medications Given in ED Vital Signs/I&O 08/21/21 08/21/21 08/21/21 04:38 04:59 05:31 Temp 36.9 Pulse 106 Resp 32 B/P (MAP) 160/107 (124) Pulse Ox 72 93 72 O2 Delivery Room Air Vapotherm OxyMask O2 Flow Rate 40.00 10.00 FiO2 100 Progress Progress Note #1: Time: 04:53 Progress Note discussed with Dr Ospina; aspirin for now and duirese her - will see where her troponin falls. Progress Note #2: Time: 05:00 Progress Note maxed out on vapotherm with sats 91-93%. will get ABG in 30. She looks fairly well at the moment. Progress Note #3: Time: 05:55 Progress Note Chest pain is gone; updated Dr Ospina on Chest pain status and troponin. Will keep her on current meds and watch her in the ICU. Initial ECG Impression Date: August 21, 2021 Initial ECG Impression Time: 04:44 Initial ECG Rate: 111 Initial ECG Rhythm: A Fib/Flutter Initial ECG Intervals QRS [address] depression in lead I of 2 to 3 mm, ST elevation in aVR, chronic atrial fibrillation left bundle branch block EKG : EKG Time: 06:02 Rate: 99 Rhythm: A Fib/Flutter ECG Comparisson: Unchanged Diagnostic Imaging Diagonstic Imaging: Xray Plain Films/CT/US/NM/MRI: chest Comments Chest xray - interpreted by me, pulmonary edema Departure Communication (Admissions) Time/Spoke to Admitting Phy: 06:[address] Mendez - will add Ddimer. Time/Spoke to Consulting Phy: 04:[address] Ospina Impression Primary Impression: Acute coronary syndrome Disposition: 09 ADMITTED INPATIENT Condition: Critical Admissions Decision to Admit Reason: Admit from ER (General) Decision to Admit/Date: August 21, 2021 Time/Decision to Admit Time: 05:52 Departure-Patient Inst. Referrals: ORRO BRITO MD (PCP/Family) Primary Care Physician SHANICE BARNES MD August 21, 2021 04:46
[2021-08-21 04:52] LABS: BASOPHILS # (AUTO) 0.1 10^3/uL (0.0-0.1); BASOPHILS % (AUTO) 1 % (0-10); EOSINOPHILS # (AUTO) 0.2 10^3/uL (0.0-0.3); EOSINOPHILS % (AUTO) 1 % (0-10); HEMATOCRIT 48 % (35-52); HEMOGLOBIN 15.5 g/dL (11.5-16.0); LYMPHOCYTES # (AUTO) 1.9 10^3/uL (1.0-4.0); LYMPHOCYTES % (AUTO) 12 % (12-44); MEAN CORPUSCULAR HEMOGLOBIN 30 pg (25-34); MEAN CORPUSCULAR HGB CONC 32 g/dL (32-36); MEAN CORPUSCULAR VOLUME 93 fL (80-99); MONOCYTES # (AUTO) 1.1 10^3/uL (0.0-1.0); MONOCYTES % (AUTO) 7 % (0-12); NEUTROPHILS % (AUTO) 79 % (42-75); PLATELET COUNT 285 10^3/uL (130-400); WHITE BLOOD COUNT 15.3 10^3/uL (4.3-11.0)
[2021-08-21] MEDS ORDERED: ASPIRIN 81 MG CHEW (CHILDREN'S ASA) PO ONE (05:00)
[2021-08-21] MEDS ORDERED: FUROSEMIDE 40 MG/4 ML INJ (LASIX) IVP ONE ×2 (05:00→06:00)
[2021-08-21 05:06] LABS: ALBUMIN 4.3 GM/DL (3.2-4.5); POTASSIUM 4.2 MMOL/L (3.6-5.0)
[2021-08-21 05:07] LABS: CALCIUM 10.3 MG/DL (8.5-10.1)
[2021-08-21 05:08] LABS: INR 1.8 (0.8-1.4); PROTHROMBIN TIME PATIENT 21.1 SEC (12.2-14.7)
[2021-08-21 05:09] LABS: TOTAL PROTEIN 8.5 GM/DL (6.4-8.2)
[2021-08-21 05:11] LABS: BILIRUBIN,TOTAL 0.7 MG/DL (0.1-1.0)
[2021-08-21 05:12] LABS: CREATININE SERUM 1.06 MG/DL (0.60-1.30)
[2021-08-21] MEDS ORDERED: morphine INJ 10 MG/ML 1ML (SYR OR VIAL) IVP STA (05:13)
[2021-08-21 05:15] LABS: MAGNESIUM 1.8 MG/DL (1.6-2.4)
[2021-08-21] MEDS ORDERED: ONDANSETRON 4 MG/2 ML (SDV) Z0FRAN IVP ONE (05:15)
[2021-08-21 05:16] LABS: ANISOCYTOSIS SLIGHT; BAND NEUTROPHILS 1 %; BASOPHILS % (MANUAL) 0 %; EOSINOPHILS % (MANUAL) 0 %; LYMPHOCYTES % (MANUAL) 13 %; MONOCYTES % (MANUAL) 5 %; NEUTROPHILS % (MANUAL) 81 %; POLYCHROMASIA SLIGHT
[2021-08-21 05:28] LABS: ABG BASE EXCESS -4.4 MMOL/L (-2.5-2.5); ABG OXYGEN SATURATION 79 % (94-100); ABG PCO2 35 MMHG (35-45); ABG PH 7.37 (7.37-7.43); ABG PO2 42 MMHG (79-93); ABG TCO2 21.2 MMOL/L (21.0-31.0)
[2021-08-21 05:29] LABS: ALLENS TEST YES-POS; INSPIRED O2 40
[2021-08-21 05:30] LABS: PATIENT TEMP 36.4; VENTILATOR NO
--- NOTE | 2021-08-21 07:09 | Diagnostic Imaging Report ---
EXAMINATION: Chest radiograph, portable AP view. DATE: 08/21/2021 6:02 AM INDICATION: 55-year-old female, chest pain and shortness of breath. COMPARISON: June 22, 2019. FINDINGS: Heart size and mediastinal contours are unchanged. There is no identified pneumothorax. There are multifocal bilateral interstitial and/or alveolar opacities with interval increase in the lung consolidation since the comparison study. There is mild blunting of the right lateral costophrenic angle. IMPRESSION: 1. Multifocal bilateral interstitial and/or alveolar opacities with blunting the right lateral costophrenic angle. Findings may potentially reflect pulmonary edema, atypical infection, and/or pneumonitis. There is a potential small right pleural effusion. Dictated by: Dictated on workstation # [id number]
--- NOTE | 2021-08-21 08:50 | History & Physical-Hospitalist ---
History of Present Illness HPI/Chief Complaint Patient is a 55-year-old female with past medical history of coronary artery disease and stenting in 2017, congestive heart failure, A. fib, insulin- dependent diabetes who presented to the emergency department with acute onset shortness of breath. She states that it woke her from sleep around 2 AM and she was unable to walk even across to her room to do the shortness of breath. She also developed chest pain and left arm pain. She decided to call EMS for evaluation she is found to be quite hypoxic reportedly into the 60s. In the emergency room she was given IV Lasix and placed on Vapotherm which maintained her oxygen saturation. She did have an elevated troponin as well and was admitted for further management. This morning she states she is feeling better but the doctor Anai has just been there and recommended cardiac cath and she is somewhat anxious about that. Source: patient Date Seen 08/21/21 Time Seen by a Provider: 08:44 Attending Physician Ramandeep Smith MD PCP Admitting Physician: Stephane Mendez MD Attending Physician: Stephane Mendez MD Referring Physician Date of Admission August 21, 2021 at 06:12 Home Medications & Allergies Home Medications Reviewed patient Home Medication Reconciliation performed by pharmacy medication reconciliations hvac installation technician and/or nursing. Patients Allergies have been reviewed. Allergies Allergies Coded Allergies No Known Drug Allergies (Ezvdqzvept19/13/17) Past Hootdrh-Bbsivk-Dkoeap Hx Patient Social History Tobacco Use?: No Use of E-Cig and/or Vaping dev: No Substance use?: No Alcohol Use?: No Pt feels they are or have been: No Immunizations Up To Date Date of Influenza Vaccine: Dec 31, 2018 Tetanus Booster (TDap): Unknown PED Vaccines UTD: No Seasonal Allergies Seasonal Allergies: No Current Status Advance Directives: No Primary Language: Turkish Preferred Spoken Language: Turkish Implanted or Applied Medical D: None Past Medical History Sleep Apnea Currently Using CPAP: Yes Atrial Fibrillation, Coronary Artery Disease, High Cholesterol, Hypertension Sexually Transmitted Disease: No HIV/AIDS: No Loss of Vision: Bilateral Hearing Impairment: Denies Adverse Reaction/Blood Tranf: No Review of Systems Constitutional: No chills, No fever EENTM: no symptoms reported Respiratory: short of breath Cardiovascular: chest pain, edema, Hx of Intervention Gastrointestinal: no symptoms reported; No abdominal pain Genitourinary: no symptoms reported Musculoskeletal: no symptoms reported Skin: no symptoms reported Psychiatric/Neurological: No Symptoms Reported Physical Exam Physical Exam Vital Signs Vital Signs - First Documented 08/21/21 08/21/21 04:38 04:59 Temp 36.9 Pulse 106 Resp 32 B/P (MAP) 160/107 (124) Pulse Ox 72 O2 Delivery Room Air O2 Flow Rate 40.00 FiO2 100 Capillary Refill : Less Than 3 Seconds Height, Weight, BMI Height: 5'6.00" Weight: 307lbs. 0.0oz. 139.440013go; 49.00 BMI Method: General Appearance: No Apparent Distress, Chronically ill, Obese HEENT: PERRL/EOMI, Moist Mucous Membranes; No Scleral Icterus (L), No Scleral Icterus (R) Neck: Normal Inspection, Supple Respiratory: Lungs Clear, No Accessory Muscle Use, No Respiratory Distress Cardiovascular: Regular Rate, Rhythm, No JVD, No Murmur, Normal Peripheral Pul ses Gastrointestinal: Normal Bowel Sounds, Non Tender, Soft Extremity: Normal Capillary Refill, No Calf Tenderness, No Pedal Edema Neurologic/Psychiatric: Alert, Oriented x3, Normal Mood/Affect Skin: Normal Color, Warm/Dry Results Results/Procedures Labs Laboratory Tests 08/21/21 04:49 Patient resulted labs reviewed. Imaging: Reviewed Imaging Report Imaging [facility], [place] NAME: SARA GUERRERO [facility] REC#: [id number] PT STATUS: ADM IN : 1965 PHYSICIAN: SHANICE BARNES MD ADMIT DATE: 08/21/21/ICU Signed Date of Exam:08/21/21 CHEST 1 VIEW, AP/PA ONLY EXAMINATION: Chest radiograph, portable AP view. DATE: 08/21/2021 6:02 AM INDICATION: 55-year-old female, chest pain and shortness of breath. COMPARISON: June 22, 2019. FINDINGS: Heart size and mediastinal contours are unchanged. There is no identified pneumothorax. There are multifocal bilateral interstitial and/or alveolar opacities with interval increase in the lung consolidation since the comparison study. There is mild blunting of the right lateral costophrenic angle. IMPRESSION: 1. Multifocal bilateral interstitial and/or alveolar opacities with blunting the right lateral costophrenic angle. Findings may potentially reflect pulmonary edema, atypical infection, and/or pneumonitis. There is a potential small right pleural effusion. Dictated by: Dictated on workstation # [id number] Dict: 08/21/2113 Trans: 08/21/21 0745 [facility] [id number] Interpreted by: ALDO WILEY MD Electronically signed by: ALDO WILEY MD 08/21/21 0745 Assessment/Plan Admission Diagnosis NSTEMI Admission Status: Inpatient Order (span 2 midnights) Reason for Inpatient Admission: see below Assessment and Plan NSTEMI Acutely decompensated systolic heart failure Acute hypoxic respiratory failure Elevated troponin Cardiology consulted Planning for cath today Diuresis with lasix- varghese in for accurate i/os On Vapotherm, wean as able MAT protocol TeleICU conulted, appreciate recs Echo ordered HTN A-fib HLD Rate controlled Continue home meds as able IDDMII Hold home metformin SSI DVT ppx: On xarelto already Diagnosis/Problems Diagnosis/Problems (1) Essential (primary) hypertension Status: Chronic (2) HLD (hyperlipidemia) Status: Chronic Qualifiers: Hyperlipidemia type: mixed hyperlipidemia Qualified Codes: E78.2 - Mixed hyperlipidemia (3) Insulin dependent diabetes mellitus Status: Chronic (4) Obesity Status: Chronic Qualifiers: Obesity type: unspecified obesity type Obesity classification: adult class 3 (BMI >= 40) Serious obesity comorbidity presence: without serious comorbidity Body mass index: BMI 45.0-49.9 Qualified Codes: E66.01 - Morbid (severe) obesity due to excess calories; Z68.42 - Body mass index [BMI] 45.0- 49.9, adult (5) Acute coronary syndrome Status: Acute (6) Acute respiratory failure with hypoxia Status: Acute (7) CHF (congestive heart failure) Status: Acute Qualifiers: Heart failure type: systolic Heart failure chronicity: acute on chronic Qualified Codes: I50.23 - Acute on chronic systolic (congestive) heart failure (8) A-fib Qualifiers: Atrial fibrillation type: paroxysmal Qualified Codes: I48.0 - Paroxysmal atrial fibrillation (9) Sleep apnea Status: Chronic Qualifiers: Sleep apnea type: obstructive Qualified Codes: G47.33 - Obstructive sleep apnea (adult) (pediatric) Clinical Quality Measures AMI/AHF: ASA po Prior to arrival: STEPHANE Justice MD August 21, 2021 08:50
--- NOTE | 2021-08-21 08:56 | Consultation-Cardiology ---
HPI-Cardiology Cardiology Consultation Date of Consultation 08/21/21 Date of Admission Time Seen by Provider: 08:50 Indication: Chest pain HPI 55-year-old lady with extensive coronary artery disease, permanent atrial fibrillation, hypertension hyperlipidemia. Had sudden onset of left-sided chest pain associated with shortness of breath. Patient came into the emergency room and noted to be in respiratory failure. Currently on Vapotherm, laying down comfortably in bed, feeling better. She was noted to have mild elevation in troponin level. EKG showed ST depression in lead I and aVL. Home Medications & Allergies Allergies: Coded Allergies: No Known Drug Allergies (Unverified , 02/12/17) Home Medication List Reviewed: Yes NFG-Lbbsjw-Aiogda Hx Patient Social History Marital Status: Recent Hopitalizations: No Have you traveled recently?: No Alcohol Use?: No Immunizations Up To Date Tetanus Booster (TDap): Unknown Date of Influenza Vaccine: Dec 31, 2018 Past Medical History Discussed below Family Medical History Family Medical Hx Noncontributory Review of Systems-General Review of Systems Constitutional: see HPI EENTM: see HPI, no symptoms reported Respiratory: see HPI; No cough; dyspnea on exertion; No hemoptysis, No orthopnea, No phlegm; short of breath; No stridor, No wheezing, No other Cardiovascular: see HPI, chest pain; No edema, No Hx of Intervention, No palpitations, No syncope, No vascular heart diseas, No other Gastrointestinal: no symptoms reported, see HPI Genitourinary: no symptoms reported, see HPI Musculoskeletal: no symptoms reported, see HPI Skin: no symptoms reported, see HPI Psychiatric/Neurological: No Symptoms Reported, See HPI All Other Systems Reviewed Negative Unless Noted: Yes Reviewed Test Results Reviewed Test Results Lab Laboratory Tests Test 08/21/21 04:49 08/21/21 05:19 Range/Units White Blood Count 15.3 H 4.3-11.0 10^3/uL Red Blood Count 5.18 H 3.80-5.11 10^6/uL Hemoglobin 15.5 11.5-16.0 g/dL Hematocrit 48 35-52 % Mean Corpuscular Volume 93 80-99 fL Mean Corpuscular Hemoglobin 30 25-34 pg Mean Corpuscular Hemoglobin Concent 32 32-36 g/dL Red Cell Distribution Width 13.9 10.0-14.5 % Platelet Count 285 130-400 10^3/uL Mean Platelet Volume 10.0 9.0-12.2 fL Immature Granulocyte % (Auto) 0 % Neutrophils (%) (Auto) 79 H 42-75 % Lymphocytes (%) (Auto) 12 12-44 % Monocytes (%) (Auto) 7 0-12 % Eosinophils (%) (Auto) 1 0-10 % Basophils (%) (Auto) 1 0-10 % Neutrophils # (Auto) 12.0 H 1.8-7.8 10^3/uL Lymphocytes # (Auto) 1.9 1.0-4.0 10^3/uL Monocytes # (Auto) 1.1 H 0.0-1.0 10^3/uL Eosinophils # (Auto) 0.2 0.0-0.3 10^3/uL Basophils # (Auto) 0.1 0.0-0.1 10^3/uL Immature Granulocyte # (Auto) 0.1 0.0-0.1 10^3/uL Neutrophils % (Manual) 81 % Lymphocytes % (Manual) 13 % Monocytes % (Manual) 5 % Eosinophils % (Manual) 0 % Basophils % (Manual) 0 % Band Neutrophils 1 % Polychromasia SLIGHT Anisocytosis SLIGHT Prothrombin Time 21.1 H 12.2-14.7 SEC INR Comment 1.8 H 0.8-1.4 Activated Partial Thromboplast Time 49 H 24-35 SEC D-Dimer 0.38 0.00-0.49 UG/ML Sodium Level 140 135-145 MMOL/L Potassium Level 4.2 3.6-5.0 MMOL/L Chloride Level 105 98-107 MMOL/L Carbon Dioxide Level 19 L 21-32 MMOL/L Anion Gap 16 H 5-14 MMOL/L Blood Urea Nitrogen 13 7-18 MG/DL Creatinine 1.06 0.60-1.30 MG/DL Estimat Glomerular Filtration Rate 62 BUN/Creatinine Ratio 12 Glucose Level 234 H 70-105 MG/DL Calcium Level 10.3 H 8.5-10.1 MG/DL Corrected Calcium 10.1 8.5-10.1 MG/DL Magnesium Level 1.8 1.6-2.4 MG/DL Total Bilirubin 0.7 0.1-1.0 MG/DL Aspartate Amino Transf (AST/SGOT) 15 5-34 U/L Alanine Aminotransferase (ALT/SGPT) 22 0-55 U/L Alkaline Phosphatase 99 40-136 U/L Myoglobin 77.7 10.0-92.0 NG/ML Troponin I 0.048 H <0.028 NG/ML B-Type Natriuretic Peptide 177.4 H <100.0 PG/ML Total Protein 8.5 H 6.4-8.2 GM/DL Albumin 4.3 3.2-4.5 GM/DL Blood Gas Puncture Site LRAD Blood Gas Patient Temperature 36.4 Arterial Blood pH 7.37 7.37-7.43 Arterial Blood Partial Pressure CO2 35 35-45 MMHG Arterial Blood Partial Pressure O2 42 L 79-93 MMHG Arterial Blood HCO3 20 L 23-27 MMOL/L Arterial Blood Total CO2 21.2 21.0-31.0 MMOL/L Arterial Blood Oxygen Saturation 79 L 94-100 % Arterial Blood Base Excess -4.4 L -2.5-2.5 MMOL/L Dontae Test YES-POS Blood Gas Ventilator Setting NO Blood Gas Inspired Oxygen 40 Physical Exam Physical Exam Vital Signs Vital Signs - First Documented 08/21/21 08/21/21 04:38 04:59 Temp 36.9 Pulse 106 Resp 32 B/P (MAP) 160/107 (124) Pulse Ox 72 O2 Delivery Room Air O2 Flow Rate 40.00 FiO2 100 Capillary Refill : Less Than 3 Seconds Height, Weight, BMI Height: 5'6.00" Weight: 307lbs. 0.0oz. 139.727990fy; 49.00 BMI Method: General Appearance: WD/WN, Anxious, Mild Distress Eyes: Bilateral Eye Normal Inspection, Bilateral Eye PERRL, Bilateral Eye EOMI HEENT: PERRL/EOMI Neck: Normal Inspection Respiratory: No Accessory Muscle Use, No Respiratory Distress, Crackles (Coarse crackles throughout, patient is noted to be in the low 70s, room air saturations), Other (speaking in complete sentences; exhibiting no signs of significant respiratory distress - RA sats initially in the 70's) Cardiovascular: Normal Peripheral Pulses, Irregularly Irregular, Other (1+ bilateral LE edema) Gastrointestinal: Non Tender, Soft Back: Normal Inspection, No CVA Tenderness, No Vertebral Tenderness Extremity: Normal Range of Motion, Pedal Edema Neurologic/Psychiatric: Alert, Oriented x3, No Motor/Sensory Deficits, Normal Mood/Affect, bushler II-XII Norm as Tested Skin: Normal Color, Warm/Dry Lymphatic: No Adenopathy A/P-Cardiology Admission Diagnosis Acute respiratory failure Non-ST elevation myocardial infarction Coronary artery disease Acute on chronic congestive heart failure left ventricular systolic dysfunction Assessment/Plan Acute respiratory failure, currently maintained on Vapotherm and feeling better. We will start weaning her off the Vapotherm. Non-ST elevation myocardial infarction. Coronary artery disease. Extensive disease as described below. Planning to proceed with cardiac catheterization. Coronary artery disease, cardiac catheterization done in December 2017 showing severe mid LAD stenosis with stenting using Xience 3 x 18 mm. The distal LAD is occluded, the circumflex artery has diffuse mild to moderate disease and the right coronary artery has moderate proximal and mid disease. The distal right coronary artery has severe disease and it is collateralized from the left. Ejection fraction was 35 to 40% Congestive heart failure, acute on chronic left ventricular systolic dysfunction, last echocardiogram showed ejection fraction 55% in September 2018. Planning to repeat 2D echo. Started on diuretics Chronic permanent atrial fibrillation. Maintained on Xarelto. Hypertension, restart home medication monitor blood pressure Hyperlipidemia, monitor lipids COPD, acute exacerbation, managed by primary care physician Chronic kidney disease stage II, continue to monitor renal function. History of obstructive sleep apnea. History of mild bilateral carotid stenosis, last ultrasound was done in April 2019. Diabetes mellitus, followed and managed by primary care physician Clinical Quality Measures AMI/AHF: ASA po Prior to arrival: DWAYNE Alvarez MD August 21, 2021 08:56
[2021-08-21] MEDS ORDERED: fentaNYL INJ 100 MCG/2 ML AMP ONE (08:57)
[2021-08-21] MEDS ORDERED: NS IV 1000 ML 1,000 ML ONE (08:57)
[2021-08-21] MEDS ORDERED: MIDAZOLAM 5 MG/5 ML (VERSED) VIAL ONE (08:57)
--- NOTE | 2021-08-21 08:57 | Conscious Sedation/ASA ---
Conscious Sedation Pre-Proced Time 08:56 ASA Score 3 For ASA 3 and 4: Consider anesthesia and medical clearance. Also, for patients with a history of failed moderate sedation consider anesthesia. Airway Lungs Heart ASA score ASA 1: a normal healthy patient ASA 2: a patient with a mild systemic disease (mid diabetes, controlled hypertension, obesity x ASA 3: a patient with a severe systemic disease that limits activity (angina, COPD, prior Myocardial infarction) ASA 4: a patient with an incapacitating disease that is a constant threat to life (CHF, renal failure) ASA 5: a moribund patient not expected to survive 24 hrs. (ruptured aneurysm) ASA 6: a declared brain- patient whose organs are being harvested. For emergent operations, add the letter E after the classification Mallampati Classification Grade 3 Sedation Plan Analgesia, Amnesia, Plan communicated to team members, Discussed options with patient/fam, Discussed risks with patient/fam The patient is an appropriate candidate to undergo the planned procedure, sedation, and anesthesia. The patient immediately re-assessed prior to indication. DWAYNE YOON MD August 21, 2021 08:56
[2021-08-21] MEDS ORDERED: VERAPAMIL 5 MG/2 ML (CALAN) VIAL IV ONE (08:58)
[2021-08-21] MEDS ORDERED: NITRO DRIP 25000 MCG/D5W 250 ML IV ONE (08:58)
[2021-08-21] MEDS ORDERED: HEParin 1000 UNIT/ML (10ML VIAL) FOR BOLUS ONE (08:58)
[2021-08-21] MEDS ORDERED: CATHETER FLUSH 10 ML SYR IV PRN (09:00)
[2021-08-21] MEDS ORDERED: LIDOCAINE 1% INJ 20 ML VIAL ONE (09:01)
[2021-08-21] MEDS ORDERED: HEParin (CATH LAB) 1,000 ML IV ONE (09:01)
--- NOTE | 2021-08-21 09:09 | Tele-ICU Progress Note ---
Subjective Date Seen by a Provider: August 21, 2021 Time Seen by a Provider: 07:15 Subjective/Events-last exam This virtual visit was conducted using real time audio/video. Thank you for asking us to see this patient for respiratory insufficiency due to CHF. Recent events: PE: resting comfortably. VSS. O2 sat on HEENT: No obvious masses, adenopathy or JVD. Chest: clear to auscultation. CV: RRR S1 S2 No murmur or added sounds. Abd: Non-tender. Bowel sounds Y. : Unremarkable. Cortez Y. COLLISION REPAIR TECHNICIAN/psychiatric: Grossly intact. No obvious focal findings. Extremities: Trace edema. Capillary refill < 3 seconds. Skin: unremarkable. Results: Elevated WCC 15.3, BG 234, trop 0.048. Decreased . B.37/35/42 on 40%. CXR: B infilt R>L. Available chart/ vitals / labs / images reviewed. Video assessment done using teleICU camera, rest of exam as per RN. A/P: Respiratory insufficiency: Continue present management with Vapotherm. Monitor for increasing oxygenation needs and/or need for intubation. Critical Care: critically ill patient. Cont.lasix, ASA. To go to CCL today. Discussed with RN ABDIFATAH. Asked RN to reach out to eICU if any questions or concerns later. Time spent with patient/coordination of care with other health professionals (mins): 15 Sepsis Event Evaluation Height, Weight, BMI Height: 5'6.00" Weight: 307lbs. 0.0oz. 139.180542pd; 49.00 BMI Method: Exam Exam Patient acknowledged, consented, and participated in this virtual visit which was conducted using real time audio/video Vital Signs Date Time Temp Pulse Resp B/P (MAP) Pulse Ox O2 Delivery O2 Flow Rate FiO2 08/21/21 08:00 80 122/82 98 Vapotherm 40.00 100.00 08/21/21 08:00 36.2 08/21/21 07:56 79 08/21/21 06:47 94 22 126/84 96 Vapotherm 40.00 08/21/21 05:31 72 OxyMask 10.00 08/21/21 04:59 93 Vapotherm 40.00 100 08/21/21 04:38 36.9 106 32 160/107 (124) 72 Room Air Height & Weight Height: 5'6.00" Weight: 307lbs. 0.0oz. 139.528952kj; 49.00 BMI Method: General Appearance: WD/WN, Anxious, Mild Distress HEENT: PERRL/EOMI Neck: Normal Inspection Respiratory: No Accessory Muscle Use, No Respiratory Distress, Crackles (Coarse crackles throughout, patient is noted to be in the low 70s, room air saturations), Other (speaking in complete sentences; exhibiting no signs of significant respiratory distress - RA sats initially in the 70's) Cardiovascular: Normal Peripheral Pulses, Irregularly Irregular, Other (1+ bilateral LE edema) Capillary Refill: Less Than 3 Seconds Extremity: Normal Range of Motion, Pedal Edema Neurologic/Psychiatric: Alert, Oriented x3, No Motor/Sensory Deficits, Normal Mood/Affect, clinical molecular geneticist II-XII Norm as Tested Skin: Normal Color, Warm/Dry Lymphatic: No Adenopathy Results Lab Laboratory Tests 08/21/21 04:49 Assessment/Plan Assessment/Plan See free text. Critical Care: Critically Ill Patient AMY ISABEL MD August 21, 2021 09:09
[2021-08-21] MEDS ORDERED: NS 100 ML (IVPB) BAG IV ONE (10:00)
[2021-08-21] MEDS ORDERED: ASPIRIN 325 MG (5 GR) TABLET ONE (10:01)
[2021-08-21] MEDS ORDERED: CLOPIDOGREL 300 MG (PLAVIX) TABLET PO ONE (10:01)
[2021-08-21] MEDS: NS IV 1000 ML 1,000 ML IV SCH ×2 (10:04→20:39)
--- NOTE | 2021-08-21 10:07 | Cardiac Cath Report ---
Cardiac Cath Report Physician (s)/Desk Interviewer (s) Physician DWAYNE YOON MD Pre-Procedure Diagnosis Pre-Procedure Diagnosis: Non-ST elevation myocardial infarction Post-Procedure Note Procedure Start Date: August 21, 2021 Name of Procedure: Coronary artery disease PTCA to LAD Findings/Procedure Note PROCEDURE NOTE: 55-year-old lady with extensive coronary artery disease, admitted with acute respiratory failure and chest pain, had elevation in troponin, I decided to proceed with cardiac catheterization possible PTCA. After explaining the procedure to the patient, all pros and cons were explained, all questions were answered. The patient signed the consent and then she was placed on the cardiac catheterization laboratory. Groin was prepped SL fashion local anesthesia was used. Sheath placed in the right radial artery, [place] cath eter was advanced to the left ventricular cavity, pressure was measured, pullback LV to aorta was done, engaged the right and left coronary system, angiogram was done. Patient was noted to have a thrombus proximal to the stent in the mid LAD. EBU 3.5 guide was used, patient received 6000 units of heparin, BMW wire was advanced and parked distally then I proceeded with trek 3 x 15 mm balloon and did multiple inflation at that area, significant improvement in that area of haziness. No residual stenosis. I decided not to proceed with a stent placement due to the extensive coronary artery disease beyond that area. At the end of the procedure the sheath was removed. Vascular band was used FINDINGS: Hemodynamics LV 110/15, end-diastolic pressure 22 Aorta 109/77 mean of 89 ANATOMY: Left Main is free of obstructive disease Left Anterior Descending is heavily calcified artery, a thrombus in the mid LAD was noted, balloon angioplasty using trek 3 x 15 mm balloon was used with improvement of the lesion and no residual stenosis, the area was just proximal t o the old stent in the mid LAD. Beyond that area the LAD is totally occluded with severe disease in the diagonal arteries. No change compared to the previous study Left Circumflex is calcified artery with mild to moderate disease, the first and second obtuse marginal branches are occluded. No significant change compared to the previous study Right Coronary Artery has moderate stenosis at the midportion with occlusion distally receiving collaterals from the left with no change compared to the previous study LV Gram was not done, pressure was measured CONCLUSION: 1. Severe extensive coronary artery disease with total occlusion of the distal LAD and distal right coronary artery and first and second obtuse marginal branch which has been chronic. 2. Heavily calcified arteries, patent stent in the mid LAD with a small area of haziness proximal to the stent probably representing a small thrombus, successful balloon angioplasty with excellent results. 3. Elevated left ventricular end-diastolic pressure DISCUSSION AND RECOMMENDATION: Patient received heparin bolus, she is on aspirin, Plavix and Xarelto which will be restarted. Continue to maximize medical therapy. Anesthesia Type: Conscious Sedation Estimated blood loss (mL): 20 ml Contrast Amount: 32 ml Total Radiation Dose: 542 mGy Post-Procedure Diagnosis Post-operative diagnosis: Non-ST elevation myocardial infarction Acute respiratory failure Coronary artery disease Hypertension DWAYNE YOON MD August 21, 2021 10:07
[2021-08-21] MEDS ORDERED: NS IV 1000 ML 1,000 ML IV SCH (10:15)
[2021-08-21 10:18] VITALS: BP 138/101
[2021-08-21] MEDS: CLOPIDOGREL 75 MG (PLAVIX) TABLET PO SCH (10:18)
[2021-08-21] MEDS: DIGOXIN 0.25 MG (LANOXIN) TAB PO SCH (10:35)
[2021-08-21] MEDS: meTOproloL SUCCINATE 50 MG (TOPROL XL) TAB PO SCH (10:35)
[2021-08-21] MEDS: amLODIPine 5 MG (NORVASC) TAB PO SCH (10:35)
[2021-08-21] MEDS: KCL 10 MEQ TAB (MICRO K) PO SCH (10:35)
[2021-08-21] MEDS: inSUlin ASPART (NovoLOG) 1 UNIT/0.01 ML (CHARGE PER UNIT) SC SCH ×3 (12:47→22:14)
[2021-08-21] MEDS: CATHETER FLUSH 10 ML SYR IV SCH ×2 (14:04→22:14)
[2021-08-21] MEDS: RT-ALBUTEROL/IPRATROPIUM 3 ML (DUONEB) VIAL INH SCH ×2 (14:18→21:13)
[2021-08-21] MEDS: RIVAROXABAN 20 MG TABLET (XARELTO) PO SCH (17:05)
[2021-08-21] MEDS ORDERED: AZITHROMYCIN INJECTION 250 MG in NS (IVPB) 250 ML IV SCH (22:00)
[2021-08-21] MEDS: AtorvaSTATin TABLET 10 MG TABLET PO SCH (22:14)
[2021-08-21] MEDS: cefTRIAXone 2,000 MG in NS (IVPB) 50 ML IV SCH (22:14)
[2021-08-22] MEDS: RT-ALBUTEROL/IPRATROPIUM 3 ML (DUONEB) VIAL INH SCH ×4 (02:50→20:58)
[2021-08-22 04:41] LABS: BASOPHILS # (AUTO) 0.1 10^3/uL (0.0-0.1); BASOPHILS % (AUTO) 1 % (0-10); EOSINOPHILS # (AUTO) 0.1 10^3/uL (0.0-0.3); EOSINOPHILS % (AUTO) 1 % (0-10); HEMATOCRIT 37 % (35-52); HEMOGLOBIN 11.9 g/dL (11.5-16.0); LYMPHOCYTES # (AUTO) 2.1 10^3/uL (1.0-4.0); LYMPHOCYTES % (AUTO) 19 % (12-44); MEAN CORPUSCULAR HEMOGLOBIN 30 pg (25-34); MEAN CORPUSCULAR HGB CONC 32 g/dL (32-36); MEAN CORPUSCULAR VOLUME 93 fL (80-99); MEAN PLATELET VOLUME 10.3 fL (9.0-12.2); MONOCYTES # (AUTO) 1.2 10^3/uL (0.0-1.0); MONOCYTES % (AUTO) 11 % (0-12); NEUTROPHILS # (AUTO) 7.7 10^3/uL (1.8-7.8); NEUTROPHILS % (AUTO) 69 % (42-75); PLATELET COUNT 216 10^3/uL (130-400); WHITE BLOOD COUNT 11.2 10^3/uL (4.3-11.0)
[2021-08-22 05:04] LABS: ALBUMIN 3.3 GM/DL (3.2-4.5); BILIRUBIN,TOTAL 0.9 MG/DL (0.1-1.0); CALCIUM 8.8 MG/DL (8.5-10.1); CREATININE SERUM 0.98 MG/DL (0.60-1.30); MAGNESIUM 1.9 MG/DL (1.6-2.4); PHOSPHORUS 2.8 MG/DL (2.3-4.7); POTASSIUM 4.1 MMOL/L (3.6-5.0); TOTAL PROTEIN 6.3 GM/DL (6.4-8.2)
[2021-08-22] MEDS: inSUlin ASPART (NovoLOG) 1 UNIT/0.01 ML (CHARGE PER UNIT) SC SCH ×4 (05:14→21:22)
[2021-08-22] MEDS: CATHETER FLUSH 10 ML SYR IV SCH ×3 (05:14→21:23)
[2021-08-22] MEDS: NS IV 1000 ML 1,000 ML IV SCH ×2 (05:14→15:35)
[2021-08-22] MEDS: CLOPIDOGREL 75 MG (PLAVIX) TABLET PO SCH (08:13)
[2021-08-22] MEDS: amLODIPine 5 MG (NORVASC) TAB PO SCH (08:13)
[2021-08-22] MEDS: meTOproloL SUCCINATE 50 MG (TOPROL XL) TAB PO SCH (08:13)
[2021-08-22] MEDS: KCL 10 MEQ TAB (MICRO K) PO SCH (08:13)
[2021-08-22] MEDS: DIGOXIN 0.25 MG (LANOXIN) TAB PO SCH (08:13)
[2021-08-22] MEDS: ASPIRIN E.C. 81 MG (ECOTRIN) TAB PO SCH (08:13)
[2021-08-22] MEDS ORDERED: FUROSEMIDE 40 MG/4 ML INJ (LASIX) IVP SCH (09:00)
--- NOTE | 2021-08-22 09:09 | Tele-ICU Progress Note ---
Subjective Date Seen by a Provider: August 22, 2021 Time Seen by a Provider: 09:09 Subjective/Events-last exam (Tele-ICU Physician , Progress Note ) Available chart/ vitals / labs / Images reviewed Video assessment done using teleICU camera, rest of exam as per RN Discussed with RN , EXAM PER RN Events overnight : VT 100 % Afebrile -37 FiO2 - 30 L 80 % I/O = nwg Drips: Pressors: , hemodynamically stable Consultants: antelmo Hospital course: 08-21: 55 y/o F - CAD /Pulm Edema - Lasix - Vapotherm. CCLAB, PCTA DISTAL LAD. 08/02 -VT 80% 30 L A/P acute resp failure with CHF , possible PNA - VT 30 L 80 % - diuresis lasix 40 qd suspected PNA ( neg covid and flu ) = abx 08/21 follow cxr and PCT CAD -CCLAB, PCTA DISTAL LAD. - Ejection fraction was 45%, RVSP 20 mmHg A fib , Chronic permanent - rate controlled Xarelto COPD - nebs NEREIDA , reported - ? on CPAP - to cont here with sleep Lines : jenny[ph (Central Line Necessity Reviewed) Cortez: + OG: Nutrition: Analgesia: Anxiety/ delirium VTE Prophylaxis: xarelto Stress Ulcer Prophylaxis: poi Plans in collaboration with bedside consultants and IM MDs. Discussed with RN to reach out if any questions or concerns A total of 31 minutes of critical care time was devoted to this patient today, required to treat and/or prevent further deterioration of critical care condition ( as above) . Sepsis Event Evaluation Height, Weight, BMI Height: 5'6.00" Weight: 307lbs. 0.0oz. 139.455980qn; 48.53 BMI Method: Exam Exam Patient acknowledged, consented, and participated in this virtual visit which was conducted using real time audio/video Vital Signs Date Time Temp Pulse Resp B/P (MAP) Pulse Ox O2 Delivery O2 Flow Rate FiO2 08/22/21 08:00 94 Vapotherm 35.00 80 08/22/21 07:03 93 Vapotherm 35.00 90 08/22/21 07:00 90 08/22/21 06:00 93 29 118/70 92 Vapotherm 35.00 90.00 08/22/21 05:00 94 26 146/79 92 Vapotherm 35.00 90.00 08/22/21 04:00 91 Vapotherm 35.00 90 08/22/21 04:00 100 21 115/70 89 Vapotherm 35.00 90.00 08/22/21 03:00 95 28 112/61 89 Vapotherm 35.00 90.00 08/22/21 02:50 89 Vapotherm 35.00 90 08/22/21 02:00 98 31 124/79 89 Vapotherm 35.00 80.00 08/22/21 01:00 96 08/22/21 01:00 96 30 131/82 91 Vapotherm 35.00 80.00 08/22/21 00:00 93 28 130/78 91 Vapotherm 35.00 80.00 08/22/21 00:00 37.0 08/21/21 23:59 91 Vapotherm 35.00 80 08/21/21 23:00 90 30 133/82 91 Vapotherm 35.00 80.00 08/21/21 22:00 93 17 133/81 91 Vapotherm 35.00 80.00 08/21/21 21:13 91 Vapotherm 35.00 80 08/21/21 21:00 92 141/81 91 Vapotherm 35.00 80.00 08/21/21 20:36 37.1 98 24 118/76 93 Vapotherm 35.00 80.00 08/21/21 20:00 90 Vapotherm 35.00 80 08/21/21 19:00 81 08/21/21 19:00 81 24 134/88 91 Vapotherm 35.00 80.00 08/21/21 18:00 85 23 141/84 91 Vapotherm 35.00 80.00 08/21/21 17:00 93 24 146/83 93 Vapotherm 35.00 80.00 08/21/21 16:20 36.4 08/21/21 16:00 68 27 126/73 91 Vapotherm 35.00 80.00 08/21/21 16:00 92 Vapotherm 35.00 80 08/21/21 15:00 67 27 124/74 90 Vapotherm 35.00 80.00 08/21/21 14:19 94 Vapotherm 35.00 80 08/21/21 14:00 63 23 123/76 90 Vapotherm 35.00 80.00 08/21/21 13:00 66 18 111/78 92 Vapotherm 35.00 80.00 08/21/21 13:00 75 08/21/21 12:00 36.2 08/21/21 12:00 91 Vapotherm 35.00 80 08/21/21 12:00 65 21 113/84 90 Vapotherm 35.00 80.00 08/21/21 11:00 64 21 109/83 91 Vapotherm 35.00 80.00 08/21/21 10:18 36.2 79 97 08/21/21 10:15 87 20 133/93 96 Vapotherm 35.00 80.00 I & O 08/22/21 07:00 Intake Total 1000 ml Output Total 2425 ml Balance -1425 ml Height & Weight Height: 5'6.00" Weight: 307lbs. 0.0oz. 139.550948bs; 48.53 BMI Method: General Appearance: WD/WN, Anxious, Mild Distress HEENT: PERRL/EOMI Neck: Normal Inspection Respiratory: No Accessory Muscle Use, No Respiratory Distress, Crackles (Coarse crackles throughout, patient is noted to be in the low 70s, room air satu rations), Other (speaking in complete sentences; exhibiting no signs of significant respiratory distress - RA sats initially in the 70's) Cardiovascular: Normal Peripheral Pulses, Irregularly Irregular, Tachycardia, Other (1+ bilateral LE edema) Capillary Refill: Less Than 3 Seconds Extremity: Normal Range of Motion, Pedal Edema Neurologic/Psychiatric: Alert, Oriented x3, No Motor/Sensory Deficits, Normal Mood/Affect, crew caller II-XII Norm as Tested Skin: Normal Color, Warm/Dry Lymphatic: No Adenopathy Results Lab Laboratory Tests 08/21/21 04:49 08/22/21 04:23 Assessment/Plan Assessment/Plan JUANIS NORMAN MD August 22, 2021 09:09
--- NOTE | 2021-08-22 09:10 | Cardiology Progress Note ---
Subjective Date Seen by Provider: August 22, 2021 Time Seen by Provider: 09:07 Subjective/Events-last exam Patient was seen at bedside, laying down comfortably Still on Vapotherm, complaining of back pain. Review of Systems General: No Chills, No Night Sweats; Fatigue, Malaise; No Appetite, No Other HEENT: No Head Aches, No Visual Changes, No Eye Pain, No Ear Pain, No Dysphasia, No Sinus Congestion, No Post Nasal Drip, No Sore Throat, No Other Pulmonary: Dyspnea; No Cough, No Pleuritic Chest Pain, No Other Cardiovascular: No: Chest Pain, Palpitations, Orthopnea, Paroxysmal Noc. Dyspnea, Edema, Lt Headedness, Other Objective-Cardiology Exam Last Set of Vital Signs Vital Signs 08/22/21 08/22/21 08/22/21 08/22/21 00:00 06:00 07:00 08:00 Temp 37.0 Pulse 90 Resp 29 B/P (MAP) 118/70 Pulse Ox 94 O2 Delivery Vapotherm O2 Flow Rate 35.00 FiO2 80 I&O Intake and Output 08/22/21 00:00 Intake Total 900 ml Output Total 2025 ml Balance -1125 ml Intake Oral 900 ml Output Urine Total 2025 ml Daily Weight Change No General: Alert, Oriented X3, Cooperative HEENT: Atraumatic, PERRLA Neck: Supple, No JVD, No Thyromegaly Lungs: Normal Air Movement, Other (Bilateral rhonchi) Heart: Regular Rate, Normal S1, Normal S2, Other (Systolic murmur) Abdomen: Normal Bowel Sounds, Soft, No Tenderness, No Hepatosplenomegaly, No Masses Extremities: No Clubbing, No Cyanosis, No Edema, Normal Pulses, No Te nderness/Swelling Skin: No Rashes, No Breakdown, No Significant Lesion Neuro: Normal Speech, Normal Tone, Sensation Intact Psych/Mental Status: Mental Status NL, Mood NL Results Lab Laboratory Tests 08/22/21 04:23 A/P-Cardiology Admission Diagnosis Acute respiratory failure Non-ST elevation myocardial infarction Coronary artery disease Acute on chronic congestive heart failure left ventricular systolic dysfunction Assessment/Plan Acute respiratory failure, currently maintained on Vapotherm. Starting to wean off Vapotherm slowly. Managed by medical team Non-ST elevation myocardial infarction. Coronary artery disease. Extensive disease, inoperable disease. Medical therapy is recommended Coronary artery disease, cardiac catheterization done in December 2017 showing severe mid LAD stenosis with stenting using Xience 3 x 18 mm. The distal LAD is occluded, the circumflex artery has diffuse mild to moderate disease and the right coronary artery has moderate proximal and mid disease. The distal right coronary artery has severe disease and it is collateralized from the left. Ejection fraction was 35 to 40% Cardiac catheterization was done on August 21, 2021 showing patent stent in the mid LAD with balloon angioplasty for an area suspicious of thrombus proximal to the stent with excellent results. The distal LAD is occluded, the first and second obtuse marginal branch are occluded and the distal right coronary artery is occluded. Had mild to moderate disease at the mid right coronary artery and circumflex artery. Conservative management is recommended Continue on aspirin and Plavix Congestive heart failure, acute on chronic left ventricular systolic dysfunction, last echocardiogram showed ejection fraction 55% in September 2018. Planning to repeat 2D echo. Started on diuretics Chronic permanent atrial fibrillation. Maintained on Xarelto. Hypertension, monitor blood pressure Hyperlipidemia, monitor lipids COPD, acute exacerbation, managed by primary care physician Chronic kidney disease stage II, continue to monitor renal function. History of obstructive sleep apnea. History of mild bilateral carotid stenosis, last ultrasound was done in April 2019. Diabetes mellitus, followed and managed by primary care physician DWAYNE YOON MD August 22, 2021 09:10
[2021-08-22] MEDS ORDERED: SEMA14TA2 PO (10:25)
[2021-08-22] MEDS ORDERED: RIVA20TA PO (10:25)
[2021-08-22] MEDS ORDERED: FURO40TA4 PO (10:25)
[2021-08-22] MEDS: FUROSEMIDE 40 MG/4 ML INJ (LASIX) IVP SCH ×2 (13:00→21:22)
[2021-08-22 14:12] LABS: BILIRUBIN,URINE NEGATIVE (NEGATIVE); CLARITY,URINE CLEAR; COLOR,URINE YELLOW; GLUCOSE, URINE (UA) NEGATIVE (NEGATIVE); KETONES,URINE NEGATIVE (NEGATIVE); LEUKOCYTE ESTERASE ,URINE NEGATIVE (NEGATIVE); NITRITE,URINE NEGATIVE (NEGATIVE); PROTEIN,URINE NEGATIVE (NEGATIVE)
[2021-08-22 14:41] LABS: BACTERIA,URINE NEGATIVE /HPF; SQUAMOUS EPITHELIAL CELL,UR RARE /HPF
[2021-08-22 14:42] LABS: HYALINE CASTS, URINE RARE /LPF
[2021-08-22] MEDS: RIVAROXABAN 20 MG TABLET (XARELTO) PO SCH (16:24)
--- NOTE | 2021-08-22 19:11 | Progress Note - Hospitalist ---
Subjective HPI/CC On Admission Date Seen by Provider: August 22, 2021 Time Seen by Provider: 09:40 Patient is a 55-year-old female with past medical history of coronary artery disease and stenting in 2017, congestive heart failure, A. fib, insulin- dependent diabetes who presented to the emergency department with acute onset shortness of breath. She states that it woke her from sleep around 2 AM and she was unable to walk even across to her room to do the shortness of breath. She also developed chest pain and left arm pain. She decided to call EMS for evaluation she is found to be quite hypoxic reportedly into the 60s. In the emergency room she was given IV Lasix and placed on Vapotherm which maintained her oxygen saturation. She did have an elevated troponin as well and was admitted for further management. This morning she states she is feeling better but the doctor Anai has just been there and recommended cardiac cath and she is somewhat anxious about that. Subjective/Events-last exam She is feeling better today. She is tired. She is not short of breath. She denies chest pain. She has been able to eat and drink. Objective Exam Vital Signs Vital Signs Date Time Temp Pulse Resp B/P (MAP) Pulse Ox O2 Delivery O2 Flow Rate FiO2 08/22/21 20:58 93 Vapotherm 35.00 80 08/22/21 19:24 37.2 08/22/21 18:00 97 26 122/76 Capillary Refill : Less Than 3 Seconds General Appearance: No Apparent Distress, Obese Respiratory: No Respiratory Distress, Decreased Breath Sounds Cardiovascular: Regular Rate, Rhythm, No Murmur Gastrointestinal: Normal Bowel Sounds, Non Tender, Soft Extremity: Normal Inspection, No Pedal Edema Neurologic/Psychiatric: Alert, Normal Mood/Affect Skin: Normal Color, Warm/Dry Results/Procedures Lab Laboratory Tests 08/22/21 04:23 Patient resulted labs reviewed. Imaging: Reviewed Imaging Report Assessment/Plan Assessment and Plan Assess & Plan/Chief Complaint NSTEMI CAD Acutely decompensated systolic heart failure Acute hypoxic respiratory failure Possible pneumonia Cardiology following Left heart cath with extensive disease, mostly not amenable to intervention, balloon angioplasty to mid-LAD stent Echo with borderline EF 45-50% Increase to IV Lasix BID IV antibiotics Requiring Vapotherm, slightly improved, wean as able MAT protocol TeleICU following HTN A-fib HLD Continue home meds as able IDDMII Hold home metformin SSI DVT ppx: On xarelto already Critical Care Critically Ill Patient Diagnosis/Problems Diagnosis/Problems (1) Acute respiratory failure with hypoxia Status: Acute (2) Acute coronary syndrome Status: Acute (3) CHF (congestive heart failure) Status: Acute Qualifiers: Heart failure type: systolic Heart failure chronicity: acute on chronic Qualified Codes: I50.23 - Acute on chronic systolic (congestive) heart failure (4) PNA (pneumonia) Status: Acute Clinical Quality Measures AMI/AHF: ASA po Prior to arrival: MEIR Muniz MD August 22, 2021 19:11
[2021-08-22] MEDS: AZITHROMYCIN 250 MG TAB (ZITHROMAX) PO SCH (21:22)
[2021-08-22] MEDS: AtorvaSTATin TABLET 10 MG TABLET PO SCH (21:22)
[2021-08-22] MEDS: cefTRIAXone 2,000 MG in NS (IVPB) 50 ML IV SCH (21:23)
[2021-08-23] MEDS: RT-ALBUTEROL/IPRATROPIUM 3 ML (DUONEB) VIAL INH SCH ×4 (02:39→22:08)
[2021-08-23 04:40] LABS: BASOPHILS # (AUTO) 0.1 10^3/uL (0.0-0.1); BASOPHILS % (AUTO) 1 % (0-10); EOSINOPHILS # (AUTO) 0.3 10^3/uL (0.0-0.3); EOSINOPHILS % (AUTO) 2 % (0-10); HEMATOCRIT 40 % (35-52); HEMOGLOBIN 12.8 g/dL (11.5-16.0); LYMPHOCYTES # (AUTO) 1.7 10^3/uL (1.0-4.0); LYMPHOCYTES % (AUTO) 15 % (12-44); MEAN CORPUSCULAR HEMOGLOBIN 29 pg (25-34); MEAN CORPUSCULAR HGB CONC 32 g/dL (32-36); MEAN CORPUSCULAR VOLUME 92 fL (80-99); MEAN PLATELET VOLUME 10.2 fL (9.0-12.2); MONOCYTES # (AUTO) 1.2 10^3/uL (0.0-1.0); MONOCYTES % (AUTO) 10 % (0-12); NEUTROPHILS # (AUTO) 8.2 10^3/uL (1.8-7.8); NEUTROPHILS % (AUTO) 72 % (42-75); PLATELET COUNT 237 10^3/uL (130-400); WHITE BLOOD COUNT 11.4 10^3/uL (4.3-11.0)
[2021-08-23 04:54] LABS: ALBUMIN 3.4 GM/DL (3.2-4.5); POTASSIUM 4.1 MMOL/L (3.6-5.0)
[2021-08-23 04:56] LABS: CALCIUM 9.4 MG/DL (8.5-10.1)
[2021-08-23 04:57] LABS: TOTAL PROTEIN 7.2 GM/DL (6.4-8.2)
[2021-08-23 04:59] LABS: BILIRUBIN,TOTAL 0.9 MG/DL (0.1-1.0)
[2021-08-23 05:00] LABS: PHOSPHORUS 3.1 MG/DL (2.3-4.7)
[2021-08-23 05:01] LABS: CREATININE SERUM 0.95 MG/DL (0.60-1.30)
[2021-08-23 05:03] LABS: MAGNESIUM 1.8 MG/DL (1.6-2.4)
[2021-08-23] MEDS: inSUlin ASPART (NovoLOG) 1 UNIT/0.01 ML (CHARGE PER UNIT) SC SCH ×4 (05:34→21:00)
[2021-08-23] MEDS: CATHETER FLUSH 10 ML SYR IV SCH ×3 (05:34→23:43)
--- NOTE | 2021-08-23 07:28 | Diagnostic Imaging Report ---
INDICATION: Respiratory distress. Comparison with 08/21/2021. FINDINGS: There has been some clearing of infiltrate in the left lung with only minimal interstitial infiltrate remaining on the left. Right lung shows slight improvement though there continues to be groundglass infiltrate and interstitial infiltrates throughout. Heart is mildly enlarged. No pneumothorax or pleural effusion. IMPRESSION: 1. There has been improvement with near complete clearing of the left lung. Moderate residual infiltrate remains throughout the right lung. Dictated by: Dictated on workstation # [id number]
[2021-08-23] MEDS: DIGOXIN 0.25 MG (LANOXIN) TAB PO SCH (08:43)
[2021-08-23] MEDS: KCL 10 MEQ TAB (MICRO K) PO SCH (08:43)
[2021-08-23] MEDS: meTOproloL SUCCINATE 50 MG (TOPROL XL) TAB PO SCH (08:44)
[2021-08-23] MEDS: FUROSEMIDE 40 MG/4 ML INJ (LASIX) IVP SCH ×2 (08:44→20:59)
[2021-08-23] MEDS: CLOPIDOGREL 75 MG (PLAVIX) TABLET PO SCH (08:44)
[2021-08-23] MEDS: amLODIPine 5 MG (NORVASC) TAB PO SCH (08:44)
[2021-08-23] MEDS: ASPIRIN E.C. 81 MG (ECOTRIN) TAB PO SCH (08:44)
--- NOTE | 2021-08-23 08:59 | Cardiology Progress Note ---
Subjective Date Seen by Provider: August 23, 2021 Time Seen by Provider: 08:58 Subjective/Events-last exam Patient was seen at bedside, laying down comfortably Still on Vapotherm, feeling better. Review of Systems General: No Chills, No Night Sweats; Fatigue; No Malaise, No Appetite, No Other HEENT: No Head Aches, No Visual Changes, No Eye Pain; Ear Pain; No Dysphasia, No Sinus Congestion, No Post Nasal Drip, No Sore Throat, No Other Pulmonary: Dyspnea; No Cough, No Pleuritic Chest Pain, No Other Cardiovascular: No: Chest Pain, Palpitations, Orthopnea, Paroxysmal Noc. Dyspnea, Edema, Lt Headedness, Other Objective-Cardiology Exam Last Set of Vital Signs Vital Signs 08/23/21 08/23/21 06:55 08:00 Temp 36.7 Pulse 90 Resp 22 B/P (MAP) 144/88 Pulse Ox 91 O2 Delivery Vapotherm O2 Flow Rate 30.00 75.00 FiO2 75 I&O Intake and Output 08/23/21 00:00 Intake Total 2122.5 ml Output Total 4150 ml Balance -2027.5 ml Intake Oral 1820 ml IV Total 302.5 ml Output Urine Total 4150 ml General: Alert, Oriented X3, Cooperative HEENT: Atraumatic, PERRLA Neck: Supple, No JVD, No Thyromegaly Lungs: Normal Air Movement, Other (Bilateral rhonchi) Heart: Normal S1, Normal S2, Other (Systolic murmur, atrial fibrillation) Abdomen: Normal Bowel Sounds, Soft, No Tenderness, No Hepatosplenomegaly, No Masses Extremities: No Clubbing, No Cyanosis, No Edema, Normal Pulses, No Tenderness/Swelling Skin: No Rashes, No Breakdown, No Significant Lesion Neuro: Normal Speech, Normal Tone, Sensation Intact Psych/Mental Status: Mental Status NL, Mood NL Results Lab Laboratory Tests 08/23/21 04:30 A/P-Cardiology Admission Diagnosis Acute respiratory failure Non-ST elevation myocardial infarction Coronary artery disease Acute on chronic congestive heart failure left ventricular systolic dysfunction Assessment/Plan Acute respiratory failure, currently maintained on Vapotherm. Starting to wean off Vapotherm slowly. Chest x-ray showed significant improvement. Managed by medical team Non-ST elevation myocardial infarction. Coronary artery disease. Extensive disease, inoperable disease. Medical therapy is recommended Coronary artery disease, cardiac catheterization done in December 2017 showing severe mid LAD stenosis with stenting using Xience 3 x 18 mm. The distal LAD is occluded, the circumflex artery has diffuse mild to moderate disease and the right coronary artery has moderate proximal and mid disease. The distal right coronary artery has severe disease and it is collateralized from the left. Ejection fraction was 35 to 40% Cardiac catheterization was done on August 21, 2021 showing patent stent in the mid LAD with balloon angioplasty for an area suspicious of thrombus proximal to the stent with excellent results. The distal LAD is occluded, the first and second obtuse marginal branch are occluded and the distal right coronary artery is occluded. Had mild to moderate disease at the mid right coronary artery and circumflex artery. Conservative management is recommended Continue on aspirin and Plavix Congestive heart failure, acute on chronic left ventricular systolic dysfunction, last echocardiogram showed ejection fraction 55% in September 2018. Planning to repeat 2D echo. Started on diuretics Chronic permanent atrial fibrillation. Maintained on Xarelto. Hypertension, monitor blood pressure Hyperlipidemia, monitor lipids COPD, acute exacerbation, managed by primary care physician Chronic kidney disease stage II, continue to monitor renal function. History of obstructive sleep apnea. History of mild bilateral carotid stenosis, last ultrasound was done in April 2019. Diabetes mellitus, followed and managed by primary care physician DWAYNE YOON MD August 23, 2021 08:59
--- NOTE | 2021-08-23 10:55 | Tele-ICU Progress Note ---
Subjective Date Seen by a Provider: August 23, 2021 Time Seen by a Provider: 10:55 Subjective/Events-last exam (Tele-ICU Physician , Progress Note ) Available chart/ vitals / labs / Images reviewed Video assessment done using teleICU camera, rest of exam as per RN Discussed with RN , EXAM PER RN Events overnight : VT 100 % Nose bleed with bipsa Afebrile -37 FiO2 - 30 L 80 % I/O = nwg Drips: Pressors: , hemodynamically stable Consultants: [facility] Hospital course: 08-21: 55 y/o F - CAD /Pulm Edema - Lasix - Vapotherm. CCLAB, PCTA DISTAL LAD. 08/02 -VT 80% 30 L 524- VT 30 L 70 % - UO 4 L last 24 h A/P acute resp failure with CHF , possible PNA - VT 30 L 80 % , cxr is improving - diuresis lasix 40 qd - UO 4 L last 24 h suspected PNA ( neg covid and flu ) = abx 08/21 follow cxr and PCT CAD -CCLAB, PCTA DISTAL LAD. - Ejection fraction was 45%, RVSP 20 mmHg A fib , Chronic permanent - rate controlled Xarelto COPD - nebs NEREIDA , reported -Nose bleed withNIPPV at home and here ( with humidifier and full face mask ) Lines : jenny[ph (Central Line Necessity Reviewed) [place]: + OG: Nutrition: Analgesia: Anxiety/ delirium VTE Prophylaxis: xarelto Stress Ulcer Prophylaxis: poi Plans in collaboration with bedside consultants and IM MDs. Discussed with RN to reach out if any questions or concerns A total of 31 minutes of critical care time was devoted to this patient today, required to treat and/or prevent further deterioration of critical care condition ( as above) . Sepsis Event Evaluation Height, Weight, BMI Height: 5'6.00" Weight: 307lbs. 0.0oz. 139.334786zn; 48.53 BMI Method: Exam Exam Patient acknowledged, consented, and participated in this virtual visit which was conducted using real time audio/video Vital Signs Date Time Temp Pulse Resp B/P (MAP) Pulse Ox O2 Delivery O2 Flow Rate FiO2 08/23/21 10:15 Vapotherm 30.00 70.00 08/23/21 10:12 93 Vapotherm 35.00 70 08/23/21 08:00 36.7 5/24/22 08:00 90 22 144/88 91 Vapotherm 30.00 75.00 08/23/21 08:00 94 Vapotherm 30.00 75 08/23/21 07:12 94 08/23/21 07:00 96 17 132/88 92 Vapotherm 30.00 75.00 08/23/21 06:55 94 Vapotherm 30.00 75 08/23/21 06:00 85 27 125/73 89 Vapotherm 30.00 80.00 08/23/21 05:00 87 21 126/77 96 Vapotherm 30.00 80.00 08/23/21 04:00 86 30 124/77 89 Vapotherm 30.00 80.00 08/23/21 04:00 94 Vapotherm 35.00 80 08/23/21 03:47 36.7 08/23/21 03:00 98 27 136/85 89 Vapotherm 30.00 80.00 08/23/21 02:39 95 Vapotherm 35.00 80 08/23/21 02:00 101 31 115/74 89 Vapotherm 30.00 80.00 08/23/21 01:00 102 08/23/21 01:00 89 29 137/80 94 Vapotherm 30.00 80.00 08/23/21 00:00 91 31 121/71 91 Vapotherm 30.00 80.00 08/22/21 23:59 94 Vapotherm 35.00 80 08/22/21 23:27 36.7 08/22/21 23:00 89 28 143/89 91 Vapotherm 30.00 80.00 08/22/21 22:00 87 18 144/89 93 Vapotherm 30.00 80.00 08/22/21 21:18 98 21 91 Vapotherm 30.00 80.00 08/22/21 21:00 90 32 146/76 92 Vapotherm 35.00 80.00 08/22/21 20:58 93 Vapotherm 35.00 80 08/22/21 20:00 94 Vapotherm 35.00 80 08/22/21 20:00 94 27 132/82 89 Vapotherm 35.00 80.00 08/22/21 19:24 37.2 08/22/21 19:00 87 08/22/21 19:00 87 22 125/83 90 Vapotherm 35.00 80.00 08/22/21 18:00 97 26 122/76 92 Vapotherm 35.00 80.00 08/22/21 17:00 91 16 115/84 90 Vapotherm 35.00 80.00 08/22/21 16:00 94 Vapotherm 35.00 80 08/22/21 16:00 93 129/80 92 Vapotherm 35.00 80.00 08/22/21 15:00 94 38 122/74 92 Vapotherm 35.00 80.00 08/22/21 14:34 91 Vapotherm 35.00 80 08/22/21 14:00 84 24 155/101 91 Vapotherm 35.00 80.00 08/22/21 13:00 94 25 122/74 91 Vapotherm 35.00 80.00 08/22/21 13:00 94 08/22/21 12:00 94 Vapotherm 35.00 80 08/22/21 12:00 91 37 133/87 92 Vapotherm 35.00 80.00 08/22/21 11:00 73 27 142/89 93 Vapotherm 35.00 80.00 I & O 08/23/21 07:00 Intake Total 2622.5 ml Output Total 5950 ml Balance -3327.5 ml Height & Weight Height: 5'6.00" Weight: 307lbs. 0.0oz. 139.663120jh; 48.53 BMI Method: General Appearance: No Apparent Distress, Obese HEENT: PERRL/EOMI Neck: Normal Inspection Respiratory: No Respiratory Distress, Decreased Breath Sounds Cardiovascular: Regular Rate, Rhythm, No Murmur Capillary Refill: Less Than 3 Seconds Extremity: Normal Inspection, No Pedal Edema Neurologic/Psychiatric: Alert, Normal Mood/Affect Skin: Normal Color, Warm/Dry Lymphatic: No Adenopathy Results Lab Laboratory Tests 08/22/21 04:23 08/23/21 04:30 Assessment/Plan Assessment/Plan ` JUANIS OLIVEIRA MD August 23, 2021 10:55
--- NOTE | 2021-08-23 18:17 | Progress Note - Hospitalist ---
Subjective HPI/CC On Admission Date Seen by Provider: August 23, 2021 Time Seen by Provider: 09:40 Patient is a 55-year-old female with past medical history of coronary artery disease and stenting in 2017, congestive heart failure, A. fib, insulin- dependent diabetes who presented to the emergency department with acute onset shortness of breath. She states that it woke her from sleep around 2 AM and she was unable to walk even across to her room to do the shortness of breath. She also developed chest pain and left arm pain. She decided to call EMS for evaluation she is found to be quite hypoxic reportedly into the 60s. In the emergency room she was given IV Lasix and placed on Vapotherm which maintained her oxygen saturation. She did have an elevated troponin as well and was admitted for further management. This morning she states she is feeling better but the doctor Anai has just been there and recommended cardiac cath and she is somewhat anxious about that. Subjective/Events-last exam She is feeling a bit better today. She denies shortness of breath. She is eating and drinking. She has no complaints. Objective Exam Vital Signs Vital Signs Date Time Temp Pulse Resp B/P (MAP) Pulse Ox O2 Delivery O2 Flow Rate FiO2 08/23/21 17:13 78 28 132/98 91 Vapotherm 30.00 65.00 08/23/21 16:00 36.2 08/23/21 15:07 60 Capillary Refill : Less Than 3 Seconds General Appearance: No Apparent Distress, Obese Respiratory: No Respiratory Distress, Decreased Breath Sounds, Other (wearing Vapotherm) Cardiovascular: Regular Rate, Rhythm, No Murmur Gastrointestinal: Normal Bowel Sounds, Soft Extremity: Normal Inspection, No Pedal Edema Neurologic/Psychiatric: Alert, Normal Mood/Affect Skin: Normal Color, Warm/Dry Results/Procedures Lab Laboratory Tests 08/23/21 04:30 Patient resulted labs reviewed. Imaging: Reviewed Imaging Report Assessment/Plan Assessment and Plan Assess & Plan/Chief Complaint NSTEMI CAD Acutely decompensated systolic heart failure Acute hypoxic respiratory failure Pneumonia Cardiology following Left heart cath with extensive disease, mostly not amenable to intervention, balloon angioplasty to mid-LAD stent Echo with borderline EF 45-50% Continue IV Lasix BID IV antibiotics Requiring Vapotherm, slightly improved, wean as able MAT protocol TeleICU following HTN A-fib HLD Continue home meds as able IDDMII Hold home metformin SSI DVT ppx: On xarelto already Critical Care Critically Ill Patient Diagnosis/Problems Diagnosis/Problems (1) Acute respiratory failure with hypoxia Status: Acute (2) Acute coronary syndrome Status: Acute (3) CHF (congestive heart failure) Status: Acute Qualifiers: Heart failure type: systolic Heart failure chronicity: acute on chronic Qualified Codes: I50.23 - Acute on chronic systolic (congestive) heart failure (4) PNA (pneumonia) Status: Acute Clinical Quality Measures AMI/AHF: ASA po Prior to arrival: MEIR Muniz MD August 23, 2021 18:17
[2021-08-23] MEDS: RIVAROXABAN 20 MG TABLET (XARELTO) PO SCH (18:57)
[2021-08-23] MEDS: cefTRIAXone 2,000 MG in NS (IVPB) 50 ML IV SCH (20:59)
[2021-08-23] MEDS: AZITHROMYCIN 250 MG TAB (ZITHROMAX) PO SCH (21:00)
[2021-08-23] MEDS: AtorvaSTATin TABLET 10 MG TABLET PO SCH (21:00)
[2021-08-24] MEDS: RT-ALBUTEROL/IPRATROPIUM 3 ML (DUONEB) VIAL INH SCH ×5 (02:09→22:41)
[2021-08-24 05:08] LABS: BASOPHILS # (AUTO) 0.1 10^3/uL (0.0-0.1); BASOPHILS % (AUTO) 1 % (0-10); EOSINOPHILS # (AUTO) 0.4 10^3/uL (0.0-0.3); EOSINOPHILS % (AUTO) 4 % (0-10); HEMATOCRIT 41 % (35-52); HEMOGLOBIN 13.2 g/dL (11.5-16.0); LYMPHOCYTES # (AUTO) 1.6 10^3/uL (1.0-4.0); LYMPHOCYTES % (AUTO) 14 % (12-44); MEAN CORPUSCULAR HEMOGLOBIN 29 pg (25-34); MEAN CORPUSCULAR HGB CONC 32 g/dL (32-36); MEAN CORPUSCULAR VOLUME 91 fL (80-99); MEAN PLATELET VOLUME 10.1 fL (9.0-12.2); MONOCYTES # (AUTO) 1.2 10^3/uL (0.0-1.0); MONOCYTES % (AUTO) 10 % (0-12); NEUTROPHILS # (AUTO) 8.2 10^3/uL (1.8-7.8); NEUTROPHILS % (AUTO) 72 % (42-75); PLATELET COUNT 246 10^3/uL (130-400); WHITE BLOOD COUNT 11.5 10^3/uL (4.3-11.0)
[2021-08-24 05:21] LABS: ALBUMIN 3.5 GM/DL (3.2-4.5)
[2021-08-24 05:22] LABS: CALCIUM 9.9 MG/DL (8.5-10.1)
[2021-08-24 05:23] LABS: TOTAL PROTEIN 7.5 GM/DL (6.4-8.2)
[2021-08-24 05:25] LABS: BILIRUBIN,TOTAL 0.8 MG/DL (0.1-1.0)
[2021-08-24 05:26] LABS: PHOSPHORUS 3.6 MG/DL (2.3-4.7)
[2021-08-24 05:27] LABS: CREATININE SERUM 0.98 MG/DL (0.60-1.30)
[2021-08-24 05:30] LABS: MAGNESIUM 1.9 MG/DL (1.6-2.4)
--- NOTE | 2021-08-24 05:41 | Progress Note - Hospitalist ---
Subjective HPI/CC On Admission Date Seen by Provider: August 24, 2021 Time Seen by Provider: 09:00 Patient is a 55-year-old female with past medical history of coronary artery disease and stenting in 2017, congestive heart failure, A. fib, insulin- dependent diabetes who presented to the emergency department with acute onset shortness of breath. She states that it woke her from sleep around 2 AM and she was unable to walk even across to her room to do the shortness of breath. She also developed chest pain and left arm pain. She decided to call EMS for evaluation she is found to be quite hypoxic reportedly into the 60s. In the emergency room she was given IV Lasix and placed on Vapotherm which maintained her oxygen saturation. She did have an elevated troponin as well and was admitted for further management. This morning she states she is feeling better but the doctor Anai has just been there and recommended cardiac cath and she is somewhat anxious about that. Subjective/Events-last exam Pt is doing really well Weaning off Vapotherm Confer with Dr. Ospina Chest x-ray is stable Will discontinue varghese catheter and initiate PT and OT today Hopefully discharge soon Review of Systems General: Fatigue, Malaise Pulmonary: Dyspnea Objective Exam Vital Signs Vital Signs Date Time Temp Pulse Resp B/P (MAP) Pulse Ox O2 Delivery O2 Flow Rate FiO2 08/25/21 04:00 93 High Flow N/C 3.00 08/25/21 03:40 36.8 08/25/21 01:00 92 08/25/21 00:00 161/101 08/24/21 22:00 20 08/24/21 08:00 50 Capillary Refill : Less Than 3 Seconds General Appearance: No Apparent Distress, WD/WN, Chronically ill, Obese Respiratory: No Accessory Muscle Use, No Respiratory Distress, Decreased Breath Sounds Cardiovascular: Regular Rate, Rhythm Neurologic/Psychiatric: Alert, Oriented x3, No Motor/Sensory Deficits, Normal Mood/Affect Results/Procedures Lab Laboratory Tests 08/25/21 05:32 Patient resulted labs reviewed. Imaging: Reviewed Imaging Report Assessment/Plan Assessment and Plan Assess & Plan/Chief Complaint NSTEMI CAD Acutely decompensated systolic heart failure Acute hypoxic respiratory failure Pneumonia Cardiology following Left heart cath with extensive disease, mostly not amenable to intervention, balloon angioplasty to mid-LAD stent Echo with borderline EF 45-50% Continue IV Lasix BID IV antibiotics Requiring Vapotherm, slightly improved, wean as able MAT protocol TeleICU following HTN A-fib HLD Continue home meds as able IDDMII Hold home metformin SSI DVT ppx: On xarelto already Critical Care Critically Ill Patient Clinical Quality Measures AMI/AHF: ASA po Prior to arrival: KATARZYNA Barney DO August 24, 2021 05:41
[2021-08-24] MEDS: CATHETER FLUSH 10 ML SYR IV SCH ×3 (06:00→22:47)
[2021-08-24] MEDS: inSUlin ASPART (NovoLOG) 1 UNIT/0.01 ML (CHARGE PER UNIT) SC SCH ×4 (06:10→20:27)
[2021-08-24] MEDS: ASPIRIN E.C. 81 MG (ECOTRIN) TAB PO SCH (08:29)
[2021-08-24] MEDS: meTOproloL SUCCINATE 50 MG (TOPROL XL) TAB PO SCH (08:29)
[2021-08-24] MEDS: DIGOXIN 0.25 MG (LANOXIN) TAB PO SCH (08:29)
[2021-08-24] MEDS: FUROSEMIDE 40 MG/4 ML INJ (LASIX) IVP SCH ×2 (08:29→20:13)
[2021-08-24] MEDS: KCL 10 MEQ TAB (MICRO K) PO SCH (08:30)
[2021-08-24] MEDS: amLODIPine 5 MG (NORVASC) TAB PO SCH (08:30)
[2021-08-24] MEDS: CLOPIDOGREL 75 MG (PLAVIX) TABLET PO SCH (08:30)
--- NOTE | 2021-08-24 09:17 | Tele-ICU Progress Note ---
Subjective Date Seen by a Provider: August 24, 2021 Time Seen by a Provider: 09:16 Subjective/Events-last exam (Tele-ICU Physician , Progress Note ) Available chart/ vitals / labs / Images reviewed Video assessment done using teleICU camera, rest of exam as per RN Discussed with RN , EXAM PER RN Events overnight : VT 100 % Nose bleed with bipsa Afebrile -37 FiO2 - 30 L 80 % I/O = nwg Drips: Pressors: , hemodynamically stable Consultants: [facility] Hospital course: 08-21: 55 y/o F - CAD /Pulm Edema - Lasix - Vapotherm. CCLAB, PCTA DISTAL LAD. 08/02 -VT 80% 30 L 524- VT 30 L 70 % - UO 4 L last 24 h 08/24 = vt 25 L 50% A/P acute resp failure with CHF , possible PNA - VT 30 L 80 % , cxr is improving - diuresis lasix 40 qd - balance negative , Cr stable - CPM suspected PNA ( R>L ( neg covid and flu ) = abx 08/21 follow cxr CAD -CCLAB, PCTA DISTAL LAD. - Ejection fraction was 45%, RVSP 20 mmHg A fib , Chronic permanent - rate controlled Xarelto COPD - nebs NEREIDA , reported -Nose bleed withNIPPV at home and here ( with humidifier and full face mask ) Lines : jenny[ph (Central Line Necessity Reviewed) [place]: + OG: Nutrition: Analgesia: Anxiety/ delirium VTE Prophylaxis: xarelto Stress Ulcer Prophylaxis: po Plans in collaboration with bedside consultants and IM MDs. Discussed with RN to reach out if any questions or concerns A total of 20 minutes of critical care time was devoted to this patient today, required to treat and/or prevent further deterioration of critical care condition ( as above) . Sepsis Event Evaluation Height, Weight, BMI Height: 5'6.00" Weight: 307lbs. 0.0oz. 139.168180eo; 45.44 BMI Method: Exam Exam Patient acknowledged, consented, and participated in this virtual visit which was conducted using real time audio/video Vital Signs Date Time Temp Pulse Resp B/P (MAP) Pulse Ox O2 Delivery O2 Flow Rate FiO2 08/24/21 08:00 95 13 133/83 96 Vapotherm 30.00 60.00 08/24/21 07:29 36.6 5/25/22 07:16 96 Vapotherm 25.00 50 08/24/21 07:00 89 08/24/21 07:00 92 22 119/88 97 Vapotherm 30.00 60.00 08/24/21 06:00 90 13 136/67 95 Vapotherm 30.00 60.00 08/24/21 05:00 90 26 130/76 90 Vapotherm 30.00 60.00 08/24/21 04:00 93 Vapotherm 30.00 60 08/24/21 04:00 86 19 135/88 93 Vapotherm 30.00 60.00 08/24/21 03:53 36.5 08/24/21 03:00 77 24 130/84 94 Vapotherm 30.00 60.00 08/24/21 02:10 93 Vapotherm 30.00 60 08/24/21 02:00 90 25 128/82 92 Vapotherm 30.00 60.00 08/24/21 01:00 83 08/24/21 01:00 83 26 122/84 93 Vapotherm 30.00 60.00 08/24/21 00:00 92 Vapotherm 30.00 60 08/24/21 00:00 86 27 120/82 93 Vapotherm 30.00 60.00 08/23/21 23:37 36.9 08/23/21 23:00 89 132/74 92 Vapotherm 30.00 60.00 08/23/21 22:08 93 Vapotherm 30.00 60 08/23/21 22:00 80 21 97/81 92 Vapotherm 30.00 60.00 08/23/21 21:00 85 23 126/86 93 Vapotherm 30.00 60.00 08/23/21 20:00 93 Vapotherm 30.00 60 08/23/21 20:00 77 22 135/84 93 Vapotherm 30.00 60.00 08/23/21 19:38 36.9 08/23/21 19:00 90 22 100/59 91 Vapotherm 30.00 60.00 08/23/21 19:00 90 08/23/21 18:00 73 22 100/59 91 Vapotherm 30.00 65.00 08/23/21 17:13 78 28 132/98 91 Vapotherm 30.00 65.00 08/23/21 16:00 87 27 136/96 93 Vapotherm 30.00 65.00 08/23/21 16:00 36.2 08/23/21 15:07 92 Vapotherm 30.00 60 08/23/21 15:00 89 17 126/90 95 Vapotherm 30.00 65.00 08/23/21 14:13 90 Vapotherm 35.00 65 08/23/21 14:10 Vapotherm 30.00 65.00 08/23/21 14:00 77 27 104/53 92 Vapotherm 30.00 75.00 08/23/21 13:00 74 08/23/21 13:00 75 24 147/88 92 Vapotherm 30.00 75.00 08/23/21 12:00 92 Vapotherm 30.00 65 08/23/21 12:00 82 26 127/98 92 Vapotherm 30.00 75.00 08/23/21 11:00 96 17 127/82 91 Vapotherm 30.00 75.00 08/23/21 10:56 36.6 08/23/21 10:15 Vapotherm 30.00 70.00 08/23/21 10:12 93 Vapotherm 35.00 70 08/23/21 10:00 87 30 141/90 94 Vapotherm 30.00 75.00 I & O 08/24/21 07:00 Intake Total 2500 ml Output Total 4100 ml Balance -1600 ml Height & Weight Height: 5'6.00" Weight: 307lbs. 0.0oz. 139.127848im; 45.44 BMI Method: General Appearance: No Apparent Distress, Obese HEENT: PERRL/EOMI Neck: Normal Inspection Respiratory: No Respiratory Distress, Decreased Breath Sounds, Other (wearing Vapotherm) Cardiovascular: Regular Rate, Rhythm, No Murmur Capillary Refill: Less Than 3 Seconds Extremity: Normal Inspection, No Pedal Edema Neurologic/Psychiatric: Alert, Normal Mood/Affect Skin: Normal Color, Warm/Dry Lymphatic: No Adenopathy Results Lab Laboratory Tests 08/23/21 04:30 08/24/21 04:45 Assessment/Plan Assessment/Plan ` JUANIS OLIVEIRA MD August 24, 2021 09:17
--- NOTE | 2021-08-24 09:34 | Physical Therapy Evaluation ---
PT Evaluation-General Medical Diagnosis Admission Date August 21, 2021 at 06:12 Medical Diagnosis: NSTEMI Onset Date: August 21, 2021 Therapy Diagnosis Therapy Diagnosis: impaired mobility Height/Weight Height (Feet): 5 Height (Inches): 6.00 Weight (Pounds): 307 Weight (Ounces): 0.0 Precautions Precautions/Isolations: Fall Prevention, Standard Precautions Referral Physician: Roseann Paez DO Reason for Referral: Evaluation/Treatment Medical History Additional Medical History Past Medical History Sleep Apnea Currently Using CPAP: Yes Atrial Fibrillation, Coronary Artery Disease, High Cholesterol, Hypertension Sexually Transmitted Disease: No HIV/AIDS: No Loss of Vision: Bilateral Hearing Impairment: Denies Adverse Reaction/Blood Tranf: No Social History Home: Single Level Current Living Status: Alone Entry Into Home: Level Entry Patient states her sister lives very close Prior Prior Level of Function SCALE: Activities may be completed with or without assistive devices. 2-Omrxqjlxgq-kfnokfm completes the activity by him/herself with no assistance from a helper. 5-Set-up or Clean-up Assistance-helper sets up or cleans up; patient completes activity. [place] assists only prior to or following the activity. 4-Supervision or Touching Assistance-helper provides verbal cues and/or touching/steadying and/or contact guard assistance as patient completes activity. Assistance may be provided throughout the activity or intermittently. 3-Partial/Moderate Assistance-helper does LESS THAN HALF the effort. [place] lifts, holds or supports trunk or limbs, but provides less than half the effort. 2-Substantial/Maximal Assistance-helper does MORE THAN HALF the effort. [place] lifts or holds trunk or limbs and provides more than half the effort. 7-Ogfzevnvy-orifyi does ALL the effort. Patient does none of the effort to complete the activity. Or, the assistance of 2 or more helpers is required for the patient to complete the activity. If activity was not attempted, code reason: 7-Patient Refused. 9-Not Applicable-not attempted and the patient did not perform the activity before the current illness, exacerbation or injury. 10-Not Attempted due to Environmental Limitations-(lack of equipment, weather restraints, etc.). 88-Not Attempted due to Medical Conditions or Safety Concerns. Bed Mobility: 6 Transfers (B,C,W/C): 6 Gait: 6 Stairs: 6 Indoor Mobility (Ambulation): Independent Stairs: Independent PT Evaluation-Current Subjective Patient in recliner pre tx, agrees to PT, has no complaints of pain. Pt/Family Goals to be independent at home Objective Patient Orientation: Person, Place, Situation Attachments: Oxygen (vapotherm) ROM/Strength ROM Lower Extremities limited due to obesity Strength Lower Extremities LLE (hip flexion 3/5, knee flexion 5/5, knee extension 5/5, dorsiflexion 5/5), RLE (hip flexion 3/5, knee flexion 5/5, knee extension 5/5, dorsiflexion 5/5) Sensory Vision: Functional Hearing: Functional Sensation Right Lower Extremit: Intact Sensation Left Lower Extremity: Intact Transfers Roll Left to Right (QC): 6 Sit to Lying (QC): 6 Sit to Stand (QC): 4 Chair/Dpi-cu-Vutbi Xfer(QC): 4 Gait Does the Patient Walk?: Yes Mode of Locomotion: Walk Anticipated Mode of Locomotion: Walk Walk 10 feet (QC): 4 Distance: 20' Gait Assistive Device: None Comments/Gait Description Patient is limited by her vapotherm, she ambulated several times forward and back for a total of about 20', O2 was about 91% after ambulation Balance Sitting Static: Normal Sitting Dynamic: Normal Standing Static: Good Standing Dynamic: Good Treatment BLE supine exercises x20 (AP, HS) Assessment/Needs Patient in bed post tx with nurse call, phone, tray, all needs met. Patient has impaired mobility but not severely. She can ambulate without an assistive device. Rehab Potential: Fair PT Group Home Goals Group Home Goals PT Group Home Goals Time Frame: Aug 31, 2021 Roll Left & Right (QC): 6 Sit to Lying (QC): 6 Lying-Sitting on Side/Bed(QC): 6 Sit to Stand (QC): 6 Chair/Ioz-wx-Swppt Xfer(QC): 6 Walk 10 feet (QC): 6 Walk 50ft with 2 Turns (QC): 6 PT Plan Problem List Problem List: Activity Tolerance, Functional Strength, Safety, Balance, Gait, Transfer, Bed Mobility, ROM Treatment/Plan Treatment Plan: Continue Plan of Care Treatment Plan: Bed Mobility, Education, Functional Activity Saira, Functional Strength, Gait, Safety, Therapeutic Exercise, Transfers Treatment Duration: Aug 31, 2021 Frequency: 6 times per week Estimated Hrs Per Day: .25 hour per day Patient and/or Family Agrees t: Yes Safety Risks/Education Patient Education: Gait Training, Transfer Techniques, Correct Positioning, Safety Issues Teaching Recipient: Patient Teaching Methods: Demonstration, Discussion Response to Teaching: Reinforcement Needed Discharge Recommendations Plan Patient will perform bed mobility and transfer training, balance and endurance training, functional strengthening, stair training, gait training, and education, to improve functional mobility and independence at home. Therapy Discharge Recommendati: Home & Family, Post Acute PT Time/GCodes Time In: 901 Time Out: 911 Total Billed Treatment Time: 10 Total Billed Treatment 1 visit EVL 10' ELLA CHEN PT August 24, 2021 09:34
--- NOTE | 2021-08-24 10:22 | Cardiology Progress Note ---
Subjective Date Seen by Provider: August 24, 2021 Time Seen by Provider: 10:20 Subjective/Events-last exam Patient was seen at bedside, laying down comfortably, still on Vapotherm 50% Review of Systems General: No Chills, No Night Sweats; Fatigue; No Malaise, No Appetite, No Other HEENT: No Head Aches, No Visual Changes, No Eye Pain, No Ear Pain, No Dysphasia, No Sinus Congestion, No Post Nasal Drip, No Sore Throat, No Other Pulmonary: Dyspnea; No Cough, No Pleuritic Chest Pain, No Other Cardiovascular: No: Chest Pain, Palpitations, Orthopnea, Paroxysmal Noc. Dyspnea, Edema, Lt Headedness, Other Objective-Cardiology Exam Last Set of Vital Signs Vital Signs 08/24/21 08/24/21 08/24/21 07:16 07:29 09:00 Temp 36.6 Pulse 97 Resp 25 B/P (MAP) 127/89 Pulse Ox 95 O2 Delivery Vapotherm O2 Flow Rate 30.00 60.00 FiO2 50 I&O Intake and Output 08/24/21 00:00 Intake Total 2780 ml Output Total 4850 ml Balance -2070 ml Intake Oral 2780 ml Output Urine Total 4850 ml General: Alert, Oriented X3, Cooperative HEENT: Atraumatic, PERRLA Neck: Supple, No JVD, No Thyromegaly Lungs: Normal Air Movement, Other (Bilateral rhonchi) Heart: Normal S1, Normal S2, Other (Systolic murmur, atrial fibrillation) Abdomen: Normal Bowel Sounds, Soft, No Tenderness, No Hepatosplenomegaly, No Masses Extremities: No Clubbing, No Cyanosis, No Edema, Normal Pulses, No Tenderness/Swelling Skin: No Rashes, No Breakdown, No Significant Lesion Neuro: Normal Speech, Normal Tone, Sensation Intact Psych/Mental Status: Mental Status NL, Mood NL Results Lab Laboratory Tests 08/24/21 04:45 A/P-Cardiology Admission Diagnosis Acute respiratory failure Non-ST elevation myocardial infarction Coronary artery disease Acute on chronic congestive heart failure left ventricular systolic dysfunction Assessment/Plan Acute respiratory failure, currently maintained on Vapotherm. Starting to wean off Vapotherm slowly. Chest x-ray showed significant improvement. I will try placing her on nasal cannula and evaluate tolerance and response Non-ST elevation myocardial infarction. Coronary artery disease. Extensive disease, inoperable disease. Medical therapy is recommended Coronary artery disease, cardiac catheterization done in December 2017 showing severe mid LAD stenosis with stenting using Xience 3 x 18 mm. The distal LAD is occluded, the circumflex artery has diffuse mild to moderate disease and the right coronary artery has moderate proximal and mid disease. The distal right coronary artery has severe disease and it is collateralized from the left. E jection fraction was 35 to 40% Cardiac catheterization was done on August 21, 2021 showing patent stent in the mid LAD with balloon angioplasty for an area suspicious of thrombus proximal to the stent with excellent results. The distal LAD is occluded, the first and second obtuse marginal branch are oc cluded and the distal right coronary artery is occluded. Had mild to moderate disease at the mid right coronary artery and circumflex artery. Conservative management is recommended Continue on aspirin and Plavix Congestive heart failure, acute on chronic left ventricular systolic dysfunction, last echocardiogram showed ejection fraction 55% in September 2018. Repeat 2D echo was done on August 21, 2021 showing probable left ventricle with diffuse hypokinesia, ejection fraction 45 to 50%, biatrial enlargement, prominent right heart chambers, PA pressure 20 to 25 mmHg Started on diuretics. Chest x-ray showed significant improvement. Chronic permanent atrial fibrillation. Maintained on Xarelto. Hypertension, monitor blood pressure Hyperlipidemia, monitor lipids COPD, acute exacerbation, managed by primary care physician Chronic kidney disease stage II, continue to monitor renal function. History of obstructive sleep apnea. History of mild bilateral carotid stenosis, last ultrasound was done in April 2019. Diabetes mellitus, followed and managed by primary care physician DWAYNE YOON MD August 24, 2021 10:22
--- NOTE | 2021-08-24 11:23 | Occupational Therapy Eval ---
OT Evaluation-General/PLF Medical Diagnosis Admission Date August 21, 2021 at 06:12 Medical Diagnosis: NSTEMI Onset Date: August 21, 2021 Therapy Diagnosis Therapy Diagnosis: n/a Height/Weight Height (Feet): 5 Height (Inches): 6.00 Weight (Pounds): 307 Weight (Ounces): 0.0 Precautions Precautions/Isolations: Fall Prevention, Standard Precautions Referral Physician: Roseann Paez DO Referral Reason: Evaluation/Treatment Medical History Additional Medical History afib, CAD, HTN Social History Home: Single Level Current Living Status: Alone Entry Into Home: Level Entry ADL-Prior Level of Function SCALE: Activities may be completed with or without assistive devices. 4-Kerhwerrxn-bamgida completes the activity by him/herself with no assistance from a helper. 5-Set-up or Clean-up Assistance-helper sets up or cleans up; patient completes activity. [place] assists only prior to or following the activity. 4-Supervision or Touching Assistance-helper provides verbal cues and/or touching/steadying and/or contact guard assistance as patient completes activity. Assistance may be provided throughout the activity or intermittently. 3-Partial/Moderate Assistance-helper does LESS THAN HALF the effort. [place] lifts, holds or supports trunk or limbs, but provides less than half the effort. 2-Substantial/Maximal Assistance-helper does MORE THAN HALF the effort. [place] lifts or holds trunk or limbs and provides more than half the effort. 9-Nfyywjmzl-gtcxdg does ALL the effort. Patient does none of the effort to complete the activity. Or, the assistance of 2 or more helpers is required for the patient to complete the activity. If activity was not attempted, code reason: 7-Patient Refused. 9-Not Applicable-not attempted and the patient did not perform the activity before the current illness, exacerbation or injury. 10-Not Attempted due to Environmental Limitations-(lack of equipment, weather restraints, etc.). 88-Not Attempted due to Medical Conditions or Safety Concerns. ADL PLOF Comments Pt IND with ADLs and functional mobility, no AD. Self Care: Independent Functional Cognition: Independent OT Current Status Subjective Pt in bed, agreeable to OT Tx. Pt feels like she is at her PLOF with ADLs and doesn't want further OT txs Mental Status/Objective Attachments: [place] Catheter, Oxygen (vapotherm) Current Hand Dominance: Right Upper Extremity ROM WFL Upper Extremity Strength grossly 4/5 ADL-Treatment Eating (QC): 6 Oral Hygiene (QC): 6 On/Off Footwear (QC): 6 Toileting Hygiene (QC): 6 Other Treatments Pt in bed, agreeable to OT evaluation. Pt provided information about PLOF, and OT provided education on purpose and benefit of OT. Pt states her only limitation with self care at this time is due to being on vapotherm and limited on distance she can go. Pt independent with bed mobility, footwear, and doesn't feel like she will have difficulty with dressing tasks. Pt feels like she is at PLOF, has no concerns with completing self care tasks upon discharging, and doesn't want further OT tx. Post tx, pt in bed, call light in reach and all needs met. Education OT Patient Education: Correct positioning, Energy conservation, Modified ADL techniques, Progress toward Goal/Update tx plan, Purpose of tx/functional activities, Rehab process Teaching Recipient: Patient Teaching Methods: Discussion Response to Teaching: Verbalize Understanding OT [facility] Goals Associate Professor Of Psychology Goals 1=Demonstrate adherence to instructed precautions during ADL tasks. 2=Patient will verbalize/demonstrate understanding of assistive devices/modifi cations for ADL. 3=Patient will improve strength/tolerance for activity to enable patient to perform ADL's. OT Education/Plan Problem List/Assessment Assessment: No Skilled OT Needs ID'd No skilled OT services indicated at this time, as pt is at PLOF with self care and functional mobility, and doesn't want further services. Discharge Recommendations Plan/Recommendations: Discharge/Goals Met Treatment Plan/Plan of Care Patient would benefit from OT for education, treatment and training to promote independence in ADL's, mobility, safety and/or upper extremity function for ADL's. Plan of Care: ADL Retraining, Functional Mobility Treatment Duration: August 24, 2021 Frequency: 1 time per week (eval only) Rehab Potential: Fair Time/GCodes Start Time: 10:34 Stop Time: 10:42 Total Time Billed (hr/min): 10 Billed Treatment Time 1, JAMES ROBINS OT August 24, 2021 11:23
[2021-08-24 14:13] VITALS: BP 108/90
[2021-08-24] MEDS: RIVAROXABAN 20 MG TABLET (XARELTO) PO SCH (17:03)
[2021-08-24] MEDS: AtorvaSTATin TABLET 10 MG TABLET PO SCH (20:13)
[2021-08-24] MEDS: AZITHROMYCIN 250 MG TAB (ZITHROMAX) PO SCH (20:13)
[2021-08-24] MEDS: cefTRIAXone 2,000 MG in NS (IVPB) 50 ML IV SCH (21:45)
[2021-08-25] MEDS: RT-ALBUTEROL/IPRATROPIUM 3 ML (DUONEB) VIAL INH SCH ×6 (02:36→23:16)
[2021-08-25 06:06] LABS: BASOPHILS # (AUTO) 0.1 10^3/uL (0.0-0.1); BASOPHILS % (AUTO) 1 % (0-10); EOSINOPHILS # (AUTO) 0.5 10^3/uL (0.0-0.3); EOSINOPHILS % (AUTO) 4 % (0-10); HEMATOCRIT 42 % (35-52); HEMOGLOBIN 13.7 g/dL (11.5-16.0); LYMPHOCYTES # (AUTO) 1.8 10^3/uL (1.0-4.0); LYMPHOCYTES % (AUTO) 17 % (12-44); MEAN CORPUSCULAR HEMOGLOBIN 29 pg (25-34); MEAN CORPUSCULAR HGB CONC 33 g/dL (32-36); MEAN CORPUSCULAR VOLUME 90 fL (80-99); MEAN PLATELET VOLUME 10.5 fL (9.0-12.2); MONOCYTES # (AUTO) 1.1 10^3/uL (0.0-1.0); MONOCYTES % (AUTO) 11 % (0-12); NEUTROPHILS % (AUTO) 67 % (42-75); PLATELET COUNT 277 10^3/uL (130-400); WHITE BLOOD COUNT 10.4 10^3/uL (4.3-11.0)
[2021-08-25 06:24] LABS: ALBUMIN 3.5 GM/DL (3.2-4.5); POTASSIUM 3.7 MMOL/L (3.6-5.0)
[2021-08-25 06:25] LABS: CALCIUM 9.8 MG/DL (8.5-10.1)
[2021-08-25 06:26] LABS: TOTAL PROTEIN 7.6 GM/DL (6.4-8.2)
[2021-08-25 06:28] LABS: BILIRUBIN,TOTAL 0.6 MG/DL (0.1-1.0)
[2021-08-25 06:29] LABS: PHOSPHORUS 3.4 MG/DL (2.3-4.7)
[2021-08-25 06:30] LABS: CREATININE SERUM 0.95 MG/DL (0.60-1.30)
[2021-08-25] MEDS: amLODIPine 5 MG (NORVASC) TAB PO SCH (06:30)
[2021-08-25] MEDS: CATHETER FLUSH 10 ML SYR IV SCH ×3 (06:31→20:52)
--- NOTE | 2021-08-25 06:34 | Progress Note - Hospitalist ---
Subjective HPI/CC On Admission Date Seen by Provider: August 25, 2021 Time Seen by Provider: 10:30 Patient is a 55-year-old female with past medical history of coronary artery disease and stenting in 2017, congestive heart failure, A. fib, insulin- dependent diabetes who presented to the emergency department with acute onset shortness of breath. She states that it woke her from sleep around 2 AM and she was unable to walk even across to her room to do the shortness of breath. She also developed chest pain and left arm pain. She decided to call EMS for evalua tion she is found to be quite hypoxic reportedly into the 60s. In the emergency room she was given IV Lasix and placed on Vapotherm which maintained her oxygen saturation. She did have an elevated troponin as well and was admitted for further management. This morning she states she is feeling better but the doctor Anai has just been there and recommended cardiac cath and she is somewhat anxious about that. Subjective/Events-last exam Pt is doing a lot better Transferring to 4th floor Weaning oxygen PT and OT will be ordered Likely discharge tomorrow Review of Systems General: Fatigue, Malaise Objective Exam Vital Signs Vital Signs Date Time Temp Pulse Resp B/P (MAP) Pulse Ox O2 Delivery O2 Flow Rate FiO2 08/26/21 03:15 93 Room Air 08/25/21 23:39 36.8 85 20 137/84 08/25/21 12:00 2.00 08/24/21 08:00 50 Capillary Refill : Less Than 3 Seconds General Appearance: No Apparent Distress, WD/WN, Chronically ill, Obese Respiratory: Lungs Clear, Normal Breath Sounds Cardiovascular: Regular Rate, Rhythm Neurologic/Psychiatric: Alert Results/Procedures Lab Patient resulted labs reviewed. Imaging: Reviewed Imaging Report Assessment/Plan Assessment and Plan Assess & Plan/Chief Complaint NSTEMI CAD Acutely decompensated systolic heart failure Acute hypoxic respiratory failure Pneumonia Cardiology following Left heart cath with extensive disease, mostly not amenable to intervention, balloon angioplasty to mid-LAD stent Echo with borderline EF 45-50% Continue IV Lasix BID IV antibiotics Requiring Vapotherm, slightly improved, wean as able MAT protocol TeleICU following HTN A-fib HLD Continue home meds as able IDDMII Hold home metformin SSI DVT ppx: On xarelto already 08/25/2021: Moved to floor Discharge home tomorrow Critical Care Critically Ill Patient Clinical Quality Measures AMI/AHF: ASA po Prior to arrival: KATARZYNA Barney DO August 25, 2021 06:34
[2021-08-25] MEDS: inSUlin ASPART (NovoLOG) 1 UNIT/0.01 ML (CHARGE PER UNIT) SC SCH ×4 (06:37→20:50)
[2021-08-25] MEDS ORDERED: POTASSIUM CL 10MEQ/50ML IVPB 50 ML IV SCH (07:00)
[2021-08-25] MEDS ORDERED: KCL 20 MEQ TAB (K-DUR) PO SCH (07:00)
[2021-08-25] MEDS ORDERED: MAGNESIUM 1 GM/100 ML IVPB 100 ML IV SCH (07:00)
--- NOTE | 2021-08-25 07:48 | Cardiology Progress Note ---
Subjective Date Seen by Provider: August 25, 2021 Time Seen by Provider: 07:46 Subjective/Events-last exam Patient is laying down in bed Maintained on 2 L nasal cannula. Review of Systems General: No Chills, No Night Sweats, No Fatigue, No Malaise, No Appetite, No Other HEENT: No Head Aches, No Visual Changes, No Eye Pain, No Ear Pain, No Dysphasia, No Sinus Congestion, No Post Nasal Drip, No Sore Throat, No Other Pulmonary: No Dyspnea, No Cough, No Pleuritic Chest Pain, No Other Cardiovascular: No: Chest Pain, Palpitations, Orthopnea, Paroxysmal Noc. Dyspnea, Edema, Lt Headedness, Other Objective-Cardiology Exam Last Set of Vital Signs Vital Signs 08/24/21 08/25/21 08/25/21 08/25/21 08/25/21 08:00 06:00 06:55 07:09 07:36 Temp 36.1 Pulse 79 B/P (MAP) 158/106 Pulse Ox 92 O2 Delivery Room Air O2 Flow Rate 2.00 FiO2 50 I&O Intake and Output 08/25/21 00:00 Intake Total 1570 ml Output Total 2350 ml Balance -780 ml Intake Oral 1570 ml Output Urine Total 2350 ml # Voids 3 # Bowel Movements 1 General: Alert, Oriented X3, Cooperative HEENT: Atraumatic, PERRLA Neck: Supple, No JVD, No Thyromegaly Lungs: Normal Air Movement, Other (Bilateral rhonchi) Heart: Normal S1, Normal S2, Other (Systolic murmur, atrial fibrillation) Abdomen: Normal Bowel Sounds, Soft, No Tenderness, No Hepatosplenomegaly, No M asses Extremities: No Clubbing, No Cyanosis, No Edema, Normal Pulses, No Tende rness/Swelling Skin: No Rashes, No Breakdown, No Significant Lesion Neuro: Normal Speech, Normal Tone, Sensation Intact Psych/Mental Status: Mental Status NL, Mood NL Results Lab Laboratory Tests 08/25/21 05:32 A/P-Cardiology Admission Diagnosis Acute respiratory failure Non-ST elevation myocardial infarction Coronary artery disease Acute on chronic congestive heart failure left ventricular systolic dysfunction Assessment/Plan Status post acute respiratory failure. She was successfully weaned off Vapotherm yesterday and titrated down on nasal cannula. This morning she was on 2 L nasal cannula with oxygen saturation 91%. I turned off the oxygen and we will monitor her tolerance and response. Pneumonia, chest x-ray showed improvement. Continue to monitor Managed by primary care team Non-ST elevation myocardial infarction. Coronary artery disease. Extensive disease, inoperable disease. Medical therapy is recommended Coronary artery disease, cardiac catheterization done in December 2017 showing severe mid LAD stenosis with stenting using Xience 3 x 18 mm. The distal LAD is occluded, the circumflex artery has diffuse mild to moderate disease and the right coronary artery has moderate proximal and mid disease. The distal right coronary artery has severe disease and it is collateralized from the left. Ejection fraction was 35 to 40% Cardiac catheterization was done on August 21, 2021 showing patent stent in the mid LAD with balloon angioplasty for an area suspicious of thrombus proximal to the stent with excellent results. The distal LAD is occluded, the first and second obtuse marginal branch are occluded and the distal right coronary artery is occluded. Had mild to moderate disease at the mid right coronary artery and circumflex artery. Conservative management is recommended Continue on aspirin and Plavix Congestive heart failure, acute on chronic left ventricular systolic dysfunction, last echocardiogram showed ejection fraction 55% in September 2018. Repeat 2D echo was done on August 21, 2021 showing probable left ventricle with diffuse hypokinesia, ejection fraction 45 to 50%, biatrial enlargement, promi nent right heart chambers, PA pressure 20 to 25 mmHg Started on diuretics. Chest x-ray showed significant improvement. Chronic permanent atrial fibrillation. Maintained on Xarelto. Hypertension, monitor blood pressure Hyperlipidemia, monitor lipids COPD, acute exacerbation, managed by primary care physician Chronic kidney disease stage II, continue to monitor renal function. History of obstructive sleep apnea. History of mild bilateral carotid stenosis, last ultrasound was done in April 2019. Diabetes mellitus, followed and managed by primary care physician DWAYNE YOON MD August 25, 2021 07:47
[2021-08-25] MEDS: CLOPIDOGREL 75 MG (PLAVIX) TABLET PO SCH (08:39)
[2021-08-25] MEDS: KCL 10 MEQ TAB (MICRO K) PO SCH (08:39)
[2021-08-25] MEDS: FUROSEMIDE 40 MG/4 ML INJ (LASIX) IVP SCH ×2 (08:39→20:51)
[2021-08-25] MEDS: meTOproloL SUCCINATE 50 MG (TOPROL XL) TAB PO SCH (08:39)
[2021-08-25] MEDS: ASPIRIN E.C. 81 MG (ECOTRIN) TAB PO SCH (08:39)
[2021-08-25] MEDS: DIGOXIN 0.25 MG (LANOXIN) TAB PO SCH (08:42)
--- NOTE | 2021-08-25 09:04 | Physical Therapy Daily Note ---
PT Daily Note-Current Subjective Patient agrees to PT. No c/o. at this time. Mental Status Patient Orientation: Normal For Age Transfers SCALE: Activities may be completed with or without assistive devices. 1-Axxtlqkdjn-dyzraha completes the activity by him/herself with no assistance from a helper. 5-Set-up or Clean-up Assistance-helper sets up or cleans up; patient completes activity. [place] assists only prior to or following the activity. 4-Supervision or Touching Assistance-helper provides verbal cues and/or touching/steadying and/or contact guard assistance as patient completes activity. Assistance may be provided throughout the activity or intermittently. 3-Partial/Moderate Assistance-helper does LESS THAN HALF the effort. [place] lifts, holds or supports trunk or limbs, but provides less than half the effort. 2-Substantial/Maximal Assistance-helper does MORE THAN HALF the effort. [place] lifts or holds trunk or limbs and provides more than half the effort. 7-Lnlgjmaqm-sjgrex does ALL the effort. Patient does none of the effort to complete the activity. Or, the assistance of 2 or more helpers is required for the patient to complete the activity. If activity was not attempted, code reason: 7-Patient Refused. 9-Not Applicable-not attempted and the patient did not perform the activity before the current illness, exacerbation or injury. 10-Not Attempted due to Environmental Limitations-(lack of equipment, weather restraints, etc.). 88-Not Attempted due to Medical Conditions or Safety Concerns. Lying to Sitting/Side of Bed(Q: 6 Sit to Stand (QC): 6 Chair/Mjm-et-Ofcan Xfer(QC): 6 Gait Training Distance: 500' Walk 10 feet (QC): 6 Walk 50 ft with 2 Turns(QC): 6 Walk 150 ft (QC): 6 Gait Assistive Device: None safe and functional with no deviation Assessment Patient is currently at independent PLOF safely and does not require skilled PT intervention. PT to dismiss patient from services. Patient SAO2 96% RA after session. PT Mcfp Goals Recorder Of Deeds Goals PT Recorder Of Deeds Goals Time Frame: Aug 31, 2021 Roll Left & Right (QC): 6 Sit to Lying (QC): 6 Lying-Sitting on Side/Bed(QC): 6 Sit to Stand (QC): 6 Chair/Umo-rp-Yawdu Xfer(QC): 6 Walk 10 feet (QC): 6 Walk 50ft with 2 Turns (QC): 6 PT Plan Treatment/Plan Treatment Plan: Discontinue PT, goals met Treatment Plan: Bed Mobility, Education, Functional Activity Saira, Functional Strength, Gait, Safety, Therapeutic Exercise, Transfers Treatment Duration: Aug 31, 2021 Frequency: 6 times per week Estimated Hrs Per Day: .25 hour per day Patient and/or Family Agrees t: Yes Time/GCodes Time In: 740 Time Out: 754 Total Billed Treatment Time: 14 Total Billed Treatment 1 visit FA 14 min NELLA THAKKAR PT August 25, 2021 09:04
--- NOTE | 2021-08-25 09:37 | Tele-ICU Consult ---
History of Present Illness History of Present Illness Date Seen by Provider: August 25, 2021 Time Seen by Provider: 09:37 Date of Admission (Tele-ICU Physician , Progress Note ) Available chart/ vitals / labs / Images reviewed Video assessment done using teleICU camera, rest of exam as per RN Discussed with RN , EXAM PER RN Events overnight : VT 100 % Nose bleed with bipsa Afebrile -37 FiO2 -2l I/O = nwg Drips: Pressors: , hemodynamically stable Consultants: antelmo Hospital course: 08-21: 55 y/o F - CAD /Pulm Edema - Lasix - Vapotherm. CCLAB, PCTA DISTAL LAD. 08/02 -VT 80% 30 L 524- VT 30 L 70 % - UO 4 L last 24 h 08/24 = vt 25 L 50% A/P acute resp failure with CHF , possible PNA - VT 30 L 80 % , cxr is improving -- ON 2 L TODAY - diuresis lasix 40 qd - balance negative , Cr stable - CPM suspected PNA ( R>L ( neg covid and flu ) = abx 08/21 - WOULD STOP ABX TODAY / TOMORROW CAD -CCLAB, PCTA DISTAL LAD. - Ejection fraction was 45%, RVSP 20 mmHg A fib , Chronic permanent - rate controlled Xarelto COPD - nebs NEREIDA , reported -Nose bleed withNIPPV at home and here ( with humidifier and full face mask ) Lines : jenny[ph (Central Line Necessity Reviewed) [place]: + OG: Nutrition: Analgesia: Anxiety/ delirium VTE Prophylaxis: xarelto Stress Ulcer Prophylaxis: po Plans in collaboration with bedside consultants and IM MDs. Discussed with RN to reach out if any questions or concerns A total of 20 minutes of critical care time was devoted to this patient today, required to treat and/or prevent further deterioration of critical care condition ( as above) . Reason for Visit: Chest pain Allergies and Home Medications Allergies Coded Allergies: No Known Drug Allergies (Unverified , 02/12/17) Home Medications Amlodipine Besylate 5 Mg Tablet, 10 MG PO DAILY, (Reported) Clopidogrel Bisulfate 75 Mg Tablet, 75 MG PO DAILY, (Reported) Digoxin 250 Mcg Tablet, 125 MCG PO DAILY, (Reported) TAKES OF A 250MCG Fish Oil/Dha/Epa 1 Each Capsule, 1 EA PO DAILY, (Reported) Furosemide 40 Mg Tablet, 40 MG PO 1800, (Reported) Insulin Degludec 100 Unit/1 Ml Insuln.pen, 14 UNITS SC DAILY, (Reported) Magnesium Oxide 400 Mg Tablet, 400 MG PO BID, (Reported) Metformin HCl 1,000 Mg Tablet, 500 MG PO TIDWM, (Reported) TAKES OF A 1000MG TAB Metoprolol Succinate 50 Mg Tab.er.24h, 50 MG PO 1800, (Reported) Multivitamin 1 Each Tablet, 1 EACH PO DAILY, (Reported) Olmesartan Medoxomil 40 Mg Tablet, 40 MG PO DAILY, (Reported) Potassium Chloride 10 Meq Tablet.er, 10 MEQ PO DAILY, (Reported) Pravastatin Sodium 40 Mg Tablet, 40 MG PO HS, (Reported) Rivaroxaban 20 Mg Tablet, 20 MG PO 1800, (Reported) Semaglutide 14 Mg Tablet, 14 MG PO DAILY, (Reported) Past Medical/Social/Family Hx Patient Social History Marrital Status: Tobacco Use?: No Use of E-Cig and/or Vaping dev: No Substance use?: No Alcohol Use?: No Pt stated abuse/neglect: No Immunizations Up To Date Influenza Vaccine Up-to-Date: Yes; Up-to-Date First/Initial COVID19 Vaccinat: 05/24 Second COVID19 Vaccination Krunal: 05/24 Tetanus Booster (TDap): Unknown Current Status Advance Directives: No Communicates: Verbally Primary Language: [place] Preferred Spoken Language: [place] Implanted or Applied Medical D: None Review of Systems Constitutional: see HPI Focused Exam Height, Weight, BMI Height: 5'6.00" Weight: 307lbs. 0.0oz. 139.285558pb; 44.55 BMI Method: Exam Exam Patient acknowledged, consented, and participated in this virtual visit which was conducted using real time audio/video Vital Signs Date Time Temp Pulse Resp B/P (MAP) Pulse Ox O2 Delivery O2 Flow Rate FiO2 08/25/21 09:00 98 23 135/106 93 High Flow N/C 2.00 08/25/21 08:00 84 18 148/105 94 High Flow N/C 2.00 08/25/21 08:00 94 Room Air 08/25/21 07:36 36.1 08/25/21 07:30 Room Air 08/25/21 07:09 92 Room Air 08/25/21 07:00 89 08/25/21 07:00 81 22 135/89 93 High Flow N/C 2.00 08/25/21 06:55 High Flow N/C 2.00 08/25/21 06:00 79 93 High Flow N/C 3.00 08/25/21 06:00 158/106 08/25/21 05:00 83 115/78 95 High Flow N/C 3.00 08/25/21 04:00 93 18 106/69 92 High Flow N/C 3.00 08/25/21 04:00 93 High Flow N/C 3.00 08/25/21 03:40 36.8 08/25/21 03:00 96 21 139/78 92 High Flow N/C 3.00 08/25/21 02:36 94 High Flow N/C 3.00 08/25/21 02:00 75 20 131/91 92 High Flow N/C 3.00 08/25/21 01:00 High Flow N/C 3.00 08/25/21 01:00 92 08/25/21 01:00 92 149/66 91 High Flow N/C 3.00 08/25/21 00:00 90 161/101 92 High Flow N/C 4.00 08/24/21 23:59 94 High Flow N/C 4.00 08/24/21 23:35 36.5 08/24/21 23:00 83 113/74 93 High Flow N/C 4.00 08/24/21 22:42 92 High Flow N/C 3.00 08/24/21 22:30 36.8 08/24/21 22:00 79 20 121/74 92 High Flow N/C 4.00 08/24/21 21:00 88 20 92 High Flow N/C 4.00 08/24/21 20:00 94 High Flow N/C 4.00 08/24/21 20:00 91 14 116/86 90 High Flow N/C 4.00 08/24/21 19:44 35.8 08/24/21 19:25 92 High Flow N/C 4.00 08/24/21 19:00 86 13 100/55 94 High Flow N/C 4.00 08/24/21 19:00 High Flow N/C 4.00 08/24/21 19:00 86 08/24/21 18:00 75 21 124/83 92 High Flow N/C 4.00 08/24/21 17:01 90 High Flow N/C 4.00 08/24/21 17:00 90 31 126/84 92 High Flow N/C 6.00 08/24/21 16:00 81 28 136/96 92 High Flow N/C 6.00 08/24/21 16:00 94 High Flow N/C 4.00 08/24/21 15:55 36.5 08/24/21 15:34 91 High Flow N/C 4.00 08/24/21 15:00 80 17 114/73 91 High Flow N/C 6.00 08/24/21 14:13 36.0 93 96 08/24/21 14:00 78 27 137/94 94 High Flow N/C 6.00 08/24/21 13:00 93 19 123/75 92 Vapotherm 30.00 60.00 08/24/21 12:49 89 08/24/21 12:00 93 108/90 96 Vapotherm 30.00 60.00 08/24/21 12:00 36.6 08/24/21 11:57 94 High Flow N/C 10.00 08/24/21 11:05 94 High Flow N/C 10.00 08/24/21 11:00 94 27 147/96 95 Vapotherm 30.00 60.00 08/24/21 10:00 96 26 137/88 92 Vapotherm 30.00 60.00 I & O 08/25/21 07:00 Intake Total 1750 ml Output Total 1600 ml Balance 150 ml Height & Weight Height: 5'6.00" Weight: 307lbs. 0.0oz. 139.345009nr; 44.55 BMI Method: General Appearance: No Apparent Distress, WD/WN, Chronically ill, Obese HEENT: PERRL/EOMI Neck: Normal Inspection Respiratory: No Accessory Muscle Use, No Respiratory Distress, Decreased Breath Sounds Cardiovascular: Regular Rate, Rhythm Capillary Refill: Less Than 3 Seconds Extremity: Normal Inspection, No Pedal Edema Neurologic/Psychiatric: Alert, Oriented x3, No Motor/Sensory Deficits, Normal Mood/Affect Skin: Normal Color, Warm/Dry Lymphatic: No Adenopathy Results Lab Laboratory Tests 08/24/21 04:45 08/25/21 05:32 Assessment/Plan Assessment/Plan ` JUANIS OLIVEIRA MD August 25, 2021 09:37
--- NOTE | 2021-08-25 11:13 | Physical Therapy Progress Note ---
Therapy Progress Note PT received new order from physician. Patient seen by PT this a.m. and dismissed from services secondary patient is currently independent with bed mobility, transfers and ambulate 500' independently without assistive device. No skilled PT indicated. NELLA THAKKAR PT August 25, 2021 11:13
[2021-08-25] MEDS: RIVAROXABAN 20 MG TABLET (XARELTO) PO SCH (17:25)
[2021-08-25] MEDS: cefTRIAXone 2,000 MG in NS (IVPB) 50 ML IV SCH (20:50)
[2021-08-25] MEDS: AtorvaSTATin TABLET 10 MG TABLET PO SCH (20:51)
[2021-08-25] MEDS: AZITHROMYCIN 250 MG TAB (ZITHROMAX) PO SCH (20:51)
[2021-08-26] MEDS: RT-ALBUTEROL/IPRATROPIUM 3 ML (DUONEB) VIAL INH SCH ×2 (03:13→07:58)
[2021-08-26] MEDS: CATHETER FLUSH 10 ML SYR IV SCH (05:43)
[2021-08-26 05:54] LABS: BASOPHILS # (AUTO) 0.1 10^3/uL (0.0-0.1); BASOPHILS % (AUTO) 1 % (0-10); EOSINOPHILS # (AUTO) 0.4 10^3/uL (0.0-0.3); EOSINOPHILS % (AUTO) 4 % (0-10); HEMATOCRIT 44 % (35-52); HEMOGLOBIN 14.4 g/dL (11.5-16.0); LYMPHOCYTES # (AUTO) 1.8 10^3/uL (1.0-4.0); LYMPHOCYTES % (AUTO) 20 % (12-44); MEAN CORPUSCULAR HEMOGLOBIN 29 pg (25-34); MEAN CORPUSCULAR HGB CONC 33 g/dL (32-36); MEAN CORPUSCULAR VOLUME 90 fL (80-99); MEAN PLATELET VOLUME 10.3 fL (9.0-12.2); MONOCYTES # (AUTO) 1.1 10^3/uL (0.0-1.0); MONOCYTES % (AUTO) 12 % (0-12); NEUTROPHILS # (AUTO) 5.9 10^3/uL (1.8-7.8); NEUTROPHILS % (AUTO) 63 % (42-75); PLATELET COUNT 293 10^3/uL (130-400); WHITE BLOOD COUNT 9.3 10^3/uL (4.3-11.0)
[2021-08-26 06:05] LABS: ALBUMIN 3.6 GM/DL (3.2-4.5); POTASSIUM 3.7 MMOL/L (3.6-5.0)
[2021-08-26 06:06] LABS: CALCIUM 10.1 MG/DL (8.5-10.1)
[2021-08-26 06:07] LABS: TOTAL PROTEIN 7.8 GM/DL (6.4-8.2)
[2021-08-26 06:09] LABS: BILIRUBIN,TOTAL 0.5 MG/DL (0.1-1.0)
[2021-08-26 06:11] LABS: CREATININE SERUM 0.98 MG/DL (0.60-1.30)
[2021-08-26] MEDS: inSUlin ASPART (NovoLOG) 1 UNIT/0.01 ML (CHARGE PER UNIT) SC SCH (06:24)
--- NOTE | 2021-08-26 08:48 | Cardiology Progress Note ---
Subjective Date Seen by Provider: August 26, 2021 Time Seen by Provider: 08:46 Subjective/Events-last exam Patient was seen and evaluated, doing better. No new complaint. Asking to go home Review of Systems General: No Chills, No Night Sweats, No Fatigue, No Malaise, No Appetite, No Other HEENT: No Head Aches, No Visual Changes, No Eye Pain, No Ear Pain, No Dysphasia, No Sinus Congestion, No Post Nasal Drip, No Sore Throat, No Other Pulmonary: No Dyspnea, No Cough, No Pleuritic Chest Pain, No Other Cardiovascular: No: Chest Pain, Palpitations, Orthopnea, Paroxysmal Noc. Dyspnea, Edema, Lt Headedness, Other Objective-Cardiology Exam Last Set of Vital Signs Vital Signs 08/24/21 08/26/21 08/26/21 08:00 07:58 08:18 Temp 36.7 Pulse 81 Resp 17 B/P (MAP) 134/85 Pulse Ox 94 O2 Delivery Room Air O2 Flow Rate 0.00 FiO2 50 I&O Intake and Output 08/26/21 00:00 Intake Total 2500 ml Output Total 1700 ml Balance 800 ml Intake Oral 2450 ml IV Total 50 ml Output Urine Total 1700 ml # Voids 4 General: Alert, Oriented X3, Cooperative HEENT: Atraumatic, PERRLA Neck: Supple, No JVD, No Thyromegaly Lungs: Normal Air Movement, Other (Bilateral rhonchi) Heart: Normal S1, Normal S2, Other (Systolic murmur, atrial fibrillation) Abdomen: Normal Bowel Sounds, Soft, No Tenderness, No Hepatosplenomegaly, No Masses Extremities: No Clubbing, No Cyanosis, No Edema, Normal Pulses, No Tenderness/Swelling Skin: No Rashes, No Breakdown, No Significant Lesion Neuro: Normal Speech, Normal Tone, Sensation Intact Psych/Mental Status: Mental Status NL, Mood NL Results Lab Laboratory Tests 08/26/21 05:45 A/P-Cardiology Admission Diagnosis Acute respiratory failure Non-ST elevation myocardial infarction Coronary artery disease Acute on chronic congestive heart failure left ventricular systolic dysfunction Assessment/Plan Status post acute respiratory failure, better at this time, laying down in bed without any oxygen. Reporting significant improvement in her symptoms Pneumonia, chest x-ray showed improvement. Continue to monitor Managed by primary care team Non-ST elevation myocardial infarction. Coronary artery disease. Extensive disease, inoperable disease. Medical therapy is recommended Coronary artery disease, cardiac catheterization done in December 2017 showing severe mid LAD stenosis with stenting using Xience 3 x 18 mm. The distal LAD is occluded, the circumflex artery has diffuse mild to moderate disease and the right coronary artery has moderate proximal and mid disease. The distal right coronary artery has severe disease and it is collateralized from the left. Ejection fraction was 35 to 40% Cardiac catheterization was done on August 21, 2021 showing patent stent in the mid LAD with balloon angioplasty for an area suspicious of thrombus proximal to the stent with excellent results. The distal LAD is occluded, the first and second obtuse marginal branch are occluded and the distal right coronary artery is occluded. Had mild to moderate disease at the mid right coronary artery and circumflex artery. Conservative management is recommended Continue on aspirin and Plavix Congestive heart failure, acute on chronic left ventricular systolic dysfunction, last echocardiogram showed ejection fraction 55% in September 2018. Repeat 2D echo was done on August 21, 2021 showing probable left ventricle with diffuse hypokinesia, ejection fraction 45 to 50%, biatrial enlargement, prominent right heart chambers, PA pressure 20 to 25 mmHg Started on diuretics. Chest x-ray showed significant improvement. Chronic permanent atrial fibrillation. Maintained on Xarelto. Hypertension, continue current medications, no changes are recommended Hyperlipidemia, monitor lipids COPD, acute exacerbation, managed by primary care physician Chronic kidney disease stage II, continue to monitor renal function. History of obstructive sleep apnea. History of mild bilateral carotid stenosis, last ultrasound was done in April 2019. Diabetes mellitus, followed and managed by primary care physician DWAYNE YOON MD August 26, 2021 08:48
[2021-08-26] MEDS: FUROSEMIDE 40 MG/4 ML INJ (LASIX) IVP SCH (08:51)
[2021-08-26] MEDS: KCL 10 MEQ TAB (MICRO K) PO SCH (08:51)
[2021-08-26] MEDS: CLOPIDOGREL 75 MG (PLAVIX) TABLET PO SCH (08:51)
[2021-08-26] MEDS: DIGOXIN 0.25 MG (LANOXIN) TAB PO SCH (08:51)
[2021-08-26] MEDS: amLODIPine 5 MG (NORVASC) TAB PO SCH (08:51)
[2021-08-26] MEDS: ASPIRIN E.C. 81 MG (ECOTRIN) TAB PO SCH (08:51)
[2021-08-26] MEDS: meTOproloL SUCCINATE 50 MG (TOPROL XL) TAB PO SCH (08:51)
[2021-08-26] MEDS ORDERED: ASPI-1238 PO (11:22)
[2021-08-26] MEDS ORDERED: DIGO250T15 PO (11:22)
[2021-08-26] MEDS ORDERED: AMLO-250 PO (11:22)
--- NOTE | 2021-08-26 11:23 | Discharge Summary ---
Discharge Summary Hospital Course Was the Problem List Reviewed?: Yes Problems/Dx: (1) Acute respiratory failure with hypoxia Status: Acute (2) Acute coronary syndrome Status: Acute (3) CHF (congestive heart failure) Status: Acute Qualifiers: Qualified Codes: I50.23 - Acute on chronic systolic (congestive) heart failure (4) PNA (pneumonia) Status: Acute Hospital Course Date of Admission: August 21, 2021 at 06:12 Admission Diagnosis : Family Physician/Provider: Ramandeep Smith MD Date of Discharge: 08/26/21 Discharge Diagnosis: Acute hypoxic respiratory failure, NSTEMI, overload Hospital Course: Pt had a lengthy hospital course for 6 days after she was admitted for SOB. She was found to have NSTEMI and underwent diuresis after flash pulmonary edema. She did have a balloon procedure due to severe heart disease. Dr. Ospina managed her cardiac dysfunction. She ultimately was deemed stable for discharge in improved condition. Labs and Pending Lab Test: Laboratory Tests 08/25/21 17:12: Glucometer 158H 08/25/21 20:40: Glucometer 239H 08/26/21 05:45: White Blood Count 9.3, Red Blood Count 4.94, Hemoglobin 14.4, Hematocrit 44, Mean Corpuscular Volume 90, Mean Corpuscular Hemoglobin 29, Mean Corpuscular Hemoglobin Concent 33, Red Cell Distribution Width 13.4, Platelet Count 293, Mean Platelet Volume 10.3, Immature Granulocyte % (Auto) 0, Neutrophils (%) (Auto) 63, Lymphocytes (%) (Auto) 20, Monocytes (%) (Auto) 12, Eosinophils (%) (Auto) 4, Basophils (%) (Auto) 1, Neutrophils # (Auto) 5.9, Lymphocytes # (Auto) 1.8, Monocytes # (Auto) 1.1H, Eosinophils # (Auto) 0.4H, Basophils # (Auto) 0.1, Immature Granulocyte # (Auto) 0.0, Sodium Level 138, Potassium Level 3.7, Chloride Level 102, Carbon Dioxide Level 20L, Anion Gap 16H, Blood Urea Nitrogen 19H, Creatinine 0.98, Estimat Glomerular Filtration Rate 69, BUN/Creatinine Ratio 19, Glucose Level 184H, Calcium Level 10.1, Corrected Calcium 10.4H, Total Bilirubin 0.5, Aspartate Amino Transf (AST/SGOT) 20, Alanine Aminotransferase (ALT/SGPT) 22, Alkaline Phosphatase 90, Total Protein 7.8, Albumin 3.6 08/26/21 11:20: Glucometer 235H Microbiology 08/21/21 Blood Culture - Preliminary, Resulted No growth Home Meds Active Reported Xarelto (Rivaroxaban) 20 Mg Tablet 20 Mg PO 1800 Rybelsus (Semaglutide) 14 Mg Tablet 14 Mg PO DAILY Furosemide 40 Mg Tablet 40 Mg PO 1800 Amlodipine Besylate 5 Mg Tablet 10 Mg PO DAILY Tresiba Flextouch U-100 (Insulin Degludec) 100 Unit/1 Ml Insuln.pen 14 Units SC DAILY Digoxin 250 Mcg Tablet 125 Mcg PO DAILY TAKES OF A 250MCG K-Tab ER (Potassium Chloride) 10 Meq Tablet.er 10 Meq PO DAILY Olmesartan Medoxomil 40 Mg Tablet 40 Mg PO DAILY Metformin HCl 1,000 Mg Tablet 500 Mg PO TIDWM TAKES OF A 1000MG TAB Plavix (Clopidogrel Bisulfate) 75 Mg Tablet 75 Mg PO DAILY Metoprolol Succinate 50 Mg Tab.er.24h 50 Mg PO 1800 Multi-Vitamin Daily (Multivitamin) 1 Each Tablet 1 Each PO DAILY Magnesium Oxide 400 Mg Tablet 400 Mg PO BID Fish Oil 1,200 mg Fish Oil (Fish Oil/Dha/Epa) 1 Each Capsule 1 Ea PO DAILY Pravastatin Sodium 40 Mg Tablet 40 Mg PO HS Assessment/Pt Instructions PCP in 1 week Discharge Planning: <30 minutes discharge planning Discharge Instructions Discharge Diet: No Restrictions Discharge Physical Examination Vital Signs Vital Signs Date Time Temp Pulse Resp B/P (MAP) Pulse Ox O2 Delivery O2 Flow Rate FiO2 08/26/21 08:45 Room Air 08/26/21 08:18 36.7 81 17 134/85 94 08/26/21 07:58 0.00 08/24/21 08:00 50 General Appearance: No Apparent Distress, WD/WN Respiratory: Lungs Clear Cardiovascular: Regular Rate, Rhythm Allergies: Coded Allergies: No Known Drug Allergies (Unverified , 02/12/17) Discharge Summary Date of Admission August 21, 2021 at 06:12 Date of Discharge Discharge Date: August 26, 2021 Admission Diagnosis NSTEMI Discharge Diagnosis NSTEMI CAD Acutely decompensated systolic heart failure Acute hypoxic respiratory failure Pneumonia Cardiology following Left heart cath with extensive disease, mostly not amenable to intervention, balloon angioplasty to mid-LAD stent Echo with borderline EF 45-50% Continue IV Lasix BID IV antibiotics Requiring Vapotherm, slightly improved, wean as able MAT protocol TeleICU following HTN A-fib HLD Continue home meds as able IDDMII Hold home metformin SSI DVT ppx: On xarelto already 08/25/2021: Moved to floor Discharge home tomorrow (1) Acute respiratory failure with hypoxia Status: Acute (2) Acute coronary syndrome Status: Acute (3) CHF (congestive heart failure) Status: Acute Qualifiers: Qualified Codes: I50.23 - Acute on chronic systolic (congestive) heart failure (4) PNA (pneumonia) Status: Acute Clinical Quality Measures AMI/AHF: ASA po Prior to arrival: KATARZYNA Barney DO August 26, 2021 11:23
== END 2021-08-26 14:55 | disposition home or self-care (01) | DRG 250 ==
LOC: EDUNIT# 04:36 → ER 04:39 → ICU 06:12 → 4TH 08-25 16:14
PROVIDERS: ADMIT Family Medicine; ATTEND Internal Medicine
PROC: 02703ZZ Dilation of Coronary Artery, One Artery, Percutaneous Approach (ICD-10-PCS; principal; 2021-08-21)
PROC: 4A023N7 Measurement of Cardiac Sampling and Pressure, Left Heart, Percutaneous Approach (ICD-10-PCS; 2021-08-21)
PROC: B2111ZZ Fluoroscopy of Multiple Coronary Arteries using Low Osmolar Contrast (ICD-10-PCS; 2021-08-21)
PROC: 5A0945A Assistance with Respiratory Ventilation, 24-96 Consecutive Hours, High Flow/Velocity Cannula (ICD-10-PCS; 2021-08-24)
DX: I21.4 Non-ST elevation (NSTEMI) myocardial infarction (principal); J96.01 Acute respiratory failure with hypoxia; I50.23 Acute on chronic systolic (congestive) heart failure; J18.9 Pneumonia, unspecified organism; J44.0 Chronic obstructive pulmonary disease with (acute) lower respiratory infection; I42.9 Cardiomyopathy, unspecified; Z68.42 Body mass index [BMI] 45.0-49.9, adult; I48.21 Permanent atrial fibrillation; J44.1 Chronic obstructive pulmonary disease with (acute) exacerbation; I13.0 Hypertensive heart and chronic kidney disease with heart failure and stage 1 through stage 4 chronic kidney disease, or unspecified chronic kidney disease; I25.10 Atherosclerotic heart disease of native coronary artery without angina pectoris; G47.33 Obstructive sleep apnea (adult) (pediatric); N18.2 Chronic kidney disease, stage 2 (mild); I65.23 Occlusion and stenosis of bilateral carotid arteries; E11.22 Type 2 diabetes mellitus with diabetic chronic kidney disease; Z20.822 Contact with and (suspected) exposure to COVID-19; E78.00 Pure hypercholesterolemia, unspecified; E66.01 Morbid (severe) obesity due to excess calories; Z95.5 Presence of coronary angioplasty implant and graft; Z79.01 Long term (current) use of anticoagulants; Z79.4 Long term (current) use of insulin; Z79.899 Other long term (current) drug therapy
CPT/HCPCS: 36415; 51702; 71045; 80053; 80061; 81000; 82805; 82947; 83735; 83874; 83880; 84100; 84145; 84484; 85007; 85025; 85027; 85379; 85610; 85730; 87040; 87636; 93005; 93041; 93306; 93458; 94640; 94760; 99291

== ENCOUNTER → 2021-11-11 | Outpatient (CLI) | payer BC ==
[~2021-11-11] MED LIST changes: +ASPI-1238 PO; +RIVA20TA PO; +SEMA14TA2 PO
== END ==
LOC: CARD 08:30
PROVIDERS: ATTEND Nurse Practitioner Family
DX: I25.5 Ischemic cardiomyopathy (principal)
CPT/HCPCS: 93306